=== PATIENT | female | born 1955 | race Caucasian/White ===

== ENCOUNTER 2022-11-22 11:01 | Outpatient (OUT) | payer MEDICARE, SELFPAY ==
--- NOTE | 2022-11-22 11:14 | XR_ITS ---
The [address] [address] Patient Name: LORETO VASQUEZ MRN: [id number] date: 1955 Sex: F Assigned Patient Location: [facility] Current Patient Location: [facility] Accession/Order Number: [id number] Exam Date: 11/22/2022 11:20 Report Date: 11/22/2022 11:48 At the request of: ASHLEY KHANNA Procedure: XR hand RT min 3V EXAM: XR hand RT min 3V HISTORY: Right Hand PAin M79.64 COMPARISON: None. TECHNIQUE: 3 views FINDINGS: Small bony fragment in the lateral aspect of the distal third interphalangeal joint. No dislocation. No significant degenerative changes. XR/XR hand RT min 3V IMPRESSION: Small bony fragment of the lateral aspect of the distal third interphalangeal joint, may be an avulsion fracture of unknown chronicity. Electronically authenticated by: CLOTILDE BARFIELD Date: 11/22/2022 11:48
== END 2022-11-22 11:02 | disposition home or self-care (01) ==
LOC: RAD 11:08
PROVIDERS: PCP Nurse Practitioner; Visit Provider Nurse Practitioner
DX: M79.641 Pain in right hand (principal); M79.644 Pain in right finger(s)
CPT/HCPCS: 73130

== ENCOUNTER 2023-03-24 07:02 | Outpatient (RCR) | payer MEDICARE, SELFPAY | END 2023-04-03 08:14 | disposition home or self-care (01) | LOC: OT 07:02 | PROVIDERS: PCP Nurse Practitioner | DX: G56.21 Lesion of ulnar nerve, right upper limb (principal) | CPT/HCPCS: 97110; 97166 ==

== ENCOUNTER 2023-04-04 09:40 | Outpatient (RCR) | payer MEDICARE, SELFPAY | END 2023-05-05 15:57 | disposition home or self-care (01) | LOC: OT 09:40 | PROVIDERS: PCP Nurse Practitioner; Visit Provider Nurse Practitioner | DX: G56.21 Lesion of ulnar nerve, right upper limb (principal) | CPT/HCPCS: 97110 ==

== ENCOUNTER 2023-09-12 10:44 | Outpatient (OUT) | payer MEDICARE, SELFPAY ==
--- NOTE | 2023-09-12 10:53 | XR_ITS ---
[address] [address] Patient Name: LORETO VASQUEZ MRN: [id number] date: 1955 Sex: F Assigned Patient Location: [facility] Current Patient Location: [facility] Accession/Order Number: [id number] Exam Date: 09/12/2023 11:05 Report Date: 09/12/2023 11:23 At the request of: ASHLEY KHANNA Procedure: XR DEXA axial skeleton EXAMINATION: XR DEXA axial skeleton, 09/12/2023 11:05 AM EDT HISTORY: Primary Ovarian Failure E28.39 COMPARISON: 2008 TECHNIQUE: Dual-energy X-ray absorptiometry (DEXA) bone density study performed for the axial skeleton. HISTORY: Primary Ovarian Failure E28.39 FINDINGS: Bone mineral density AP spine L2-L4 measures 1.077 g/sq cm. T score -1.0. WHO classification: Normal. Lowest bone mineral density right femoral neck measuring 0.780 g/sq cm for T score -1.9. WHO classification: Osteopenia XR/XR DEXA axial skeleton IMPRESSION: Osteopenia. Moderate fracture risk Electronically authenticated by: HYACINTH ALEXANDRE Date: 09/12/2023 11:23
== END 2023-09-12 10:45 | disposition home or self-care (01) ==
LOC: RAD 10:46
PROVIDERS: PCP Nurse Practitioner; Visit Provider Nurse Practitioner
DX: E28.39 Other primary ovarian failure (principal); M85.80 Other specified disorders of bone density and structure, unspecified site
CPT/HCPCS: 77080

== ENCOUNTER 2023-10-03 12:45 | Outpatient (OUT) | payer MEDICARE, SELFPAY ==
--- NOTE | 2023-10-03 12:52 | XR_ITS ---
The [address] [address] Patient Name: LORETO VASQUEZ MRN: [id number] date: 1955 Sex: F Assigned Patient Location: [facility] Current Patient Location: Accession/Order Number: [id number] Exam Date: 10/03/2023 13:08 Report Date: 10/04/2023 13:53 At the request of: ASHLEY KHANNA Procedure: XR hip LT min 2V PROCEDURE: XR hip LT min 2V HISTORY: Sclerosis Focus Left Femoral Head 12 mm COMPARISON: XR hip left 03/10/2022, CT abdomen pelvis 02/15/2022 FINDINGS: BONES:Stable, subtle faint sclerotic area within inferior medial margin of left femoral head. No significant joint space narrowing or periarticular osteophytes. SOFT TISSUES:No visible soft tissue swelling. EFFUSION:None visible. OTHER: Negative. XR/XR hip LT min 2V IMPRESSION: 1. Stable subtle sclerotic area within left femoral head; given its stability this likely represents benign etiology. Electronically authenticated by: KATHLEEN YEAGER Date: 10/04/2023 13:53
--- OUTSIDE RECORDS SUMMARY | 2023-10-03 12:56 | XMS_ITS | CCD ---
Author Organization [facility] Care Team Providers Care Burglar Alarm Superintendent Name Role Phone SCOTCH, MELITON (PA) Unavailable Unavailable SCOTCH, MELITON (PA) Unavailable Unavailable DILLAN OCHOA Unavailable Unavailable SCOTCH, MELITON (PA) Unavailable Unavailable SCOTCH, MELITON (PA) Unavailable Unavailable SCOTCH, MELITON (PA) Unavailable Unavailable SCOTCH, MELITON (PA) Unavailable Cuauhtemoc Parikh Unavailable Unavailable Unavailable Sally, Dr. Felton Referring Unavaila Cuauhtemoc Abreu Primary Care Unavailable Traboulssdana, Dr. Felton Attending Unavaila ble Trabmalachi, Dr. Felton Referring Unavaila Cuauhtemoc Abreu Primary Care Unavailable Sally, Dr. Felton Attending Unavaila CUAUHTEMOC Abreu Primary Care Physician SALLY, DR FELTON Admitting Unavailab le TRABOULSSI, DR FELTON Attending Unavailab le MANOHAR, DR CUAUHTEMOC Crow Primary Care Unavailable TRABOULSSI, DR FELTON Consulting Unavailab le NILL, DR GRIMALDO Admitting Unavailable NILL, DR GRIMALDO Attending Unavailable VILLELA, DR CUAUHTEMOC Crow Primary Care Unavailable ZIEBBRANDO, DR KATHLEEN Sommers Consulting Unavailable NILL, DR GRIMALDO Consulting Unavailable NILL, DR GRIMALDO Admitting Unavailable NILL, DR GRIMALDO Attending Unavailable MANOHAR, DR CUAUHTEMOC Crow Primary Care Unavailable ZIEBER, DR KATHLEEN Sommers Consulting Unavailable NILL, DR GRIMALDO Consulting Unavailable NILL, DR GRIMALDO Admitting Unavailable NILL, DR GRIMALDO Attending Unavailable MANOHAR, DR CUAUHTEMOC Crow Primary Care Unavailable NILL, DR GRIMALDO Consulting Unavailable CASTELLANO, MADELINE PANDYA Consulting Unavailable SANTIAGO ORTEGA Consulting Unavailable TRABOULSSI, DR FELTON Admitting Unavailab le TRABOULSSI, DR FELTON Attending Unavailab le VILLELA, DR CUAUHTEMOC Crow Primary Care Unavailable TRABOULSSDana, DR FELTON Consulting Unavailab le NILL, DR GRIMALDO Admitting Unavailable NILL, DR GRIMALDO Attending Unavailable VILLELA, DR CUAUHTEMOC Crow Primary Care Unavailable NILL, DR GRIMALDO Consulting Unavailable Clemencia, Ashley L Primary Care Physician [phone] Manohar, Dr. Cuauhtemoc Baig Primary Care Unavailab le Ciaccia, Dr. Feliz Pennington Attending Unavai lable Clemencia, Ashley L Primary Care Provider JOSE FRANCISCO ZAVALA Attending Unavailable CLEMENCIA, ASHLEY L Primary Care Unavailable Clemencia WOVEN LABEL DESIGNER-PHARMACY SERVICES DIRECTOR, Ashley L Primary Care Provider Clemencia WOVEN LABEL DESIGNER-PHARMACY SERVICES DIRECTOR, Ashley L Primary Care Provider Un available Clemencia WOVEN LABEL DESIGNER-PHARMACY SERVICES DIRECTOR, Ashley L Primary Care Provider FELIZ TIERNEY Admitting Unavailable FELIZ TIERNEY Attending Unavailable CLEMENCIA, ASHLEY Primary Care Unavailable Jose Francisco Zavala MD Unavailable ESTELA ROBERTSON Referring Unavailable CLEMENCIA, ASHLEY L Primary Care Unavailable Clemencia WOVEN LABEL DESIGNER-PHARMACY SERVICES DIRECTOR, Ashley L Primary Care Provider ESTELA ROBERTSON Attending Unavailable VILLELACUAUHTEMOC FREDERICK Referring Unavailable CLEMENCIA, ASHLEY L Primary Care Unavailable FELIZ TIERNEY Attending Unavailable CLEMENCIA, ASHLEY L Primary Care Unavailable FELIZ TIERNEY Attending Unavailable CLEMENCIA, ASHLEY L Primary Care Unavailable FELIZ TIERNEY Referring Unavailable CLEMENCIA, ASHLEY L Primary Care Unavailable FELIZ TIERNEY Attending Unavailable CLEMENCIA, ASHLEY L Primary Care Unavailable FELIZ TIERNEY Attending Unavailable CLEMENCIA, ASHLEY L Primary Care Unavailable Clemencia, Ashley L Attending Unavailable Clemencia, Ashley L Admitting Unavailable Clemencia, GARMENT SEWER HAND Ashley L Attending Unavailable Clemencia, GARMENT SEWER HAND Ashley L Attending Unavailable Clemencia, GARMENT SEWER HAND Ashley L Attending Unavailable Clemencia, GARMENT SEWER HAND Ashley L Attending Unavailable Clemencia, GARMENT SEWER HAND Ashley L Attending Unavailable Clemencia, GARMENT SEWER HAND Ashley L Attending Unavailable Clemencia, GARMENT SEWER HAND Ashley L Admitting Unavailable Clemencia, GARMENT SEWER HAND Ashley L Attending Unavailable Clemencia, GARMENT SEWER HAND Ashley L Attending Unavailable Allergies Allergy Classification Reported Allergen(s) Allergy Type Date of Onset Reaction(s) Facility (10 sources) sulfamethoxazole / trimethoprim; Translations: [SULFAMETHOXAZOLE-T RIMETHOPRIM] Drug Allergy 11-17-19 16 Hives, Swelling [facility] [place] Repository (10 sources) INFLUENZA VIRUS VACCINES; Translations: [INFLUENZA VIRUS VACCINES] Propensity to adverse reactions to drug (disorder) 11-17-19 16 [facility] Repository (6 sources) Sulfamethoxazole / Trimethoprim; Translations: [Bactrim TABS] Drug Allergy [facility] y 250 DO Work Phone: (6 sources) Influenza (Split PF); Translations: [Influenza (Split PF)] Allergy to drug (finding) [facility] y 250 DO Work Phone: (6 sources) influenza A virus A/[id number] (H1N1) antigen / influenza A virus A/2014 (H3N2) antigen / influenza B virus B/Gonzalez antigen / influenza B virus B/ antigen; Translations: [influenza virus vaccine] Drug Allergy [facility] (disorder) [facility] [place] (6 sources) Sulfonamides (Antibiotic); Translations: [sulfa drugs] Drug allergy [facility] (disorder) [facility] [place] (1 source) rofecoxib Drug Allergy 09-27-19 13 [facility] Repository (1 source) Sulfamethoxazole / Trimethoprim Drug Allergy 09-27-19 13 [facility] Repository (1 source) Sulfonamides (Antibiotic) Drug allergy (disorder) 09-27-19 13 [facility] Repository (1 source) Flu Vaccine [id number] (3 yr +) Drug allergy (disorder) 09-27-19 13 [facility] Repository (4 sources) oxyCODONE; Translations: [OXYCODONE] Drug Allergy 09-27-19 21 Nausea [facility] Repository (4 sources) Sulfonamides (Antibiotic); Translations: [SULFA (SULFONAMIDE ANTIBIOTICS)] Propensity to adverse reactions to drug (disorder) 10-11-19 18 Hives [facility] Repository (4 sources) FLU VACCIN [id number](36MOS,UP) ; Translations: [FLU VACCIN [id number](36MOS,UP) ] Propensity to adverse reactions to drug (disorder) 09-13-19 21 Hives [facility] Repository Medications Current Medications Medication Drug Class(es) Dates Sig (Normalized) Sig (Original) acetaminophen 325 mg / HYDROcodone bitartrate 5 mg oral tablet (4 sources) Opioid Agonist Start: 10-08-2020 take 1-2 tablets by mouth every six hours as needed for pain HYDROcodone-aceta minophen (NORCO) 5-325 mg per tablet Indications: Pain in knee region after replacement of knee joint 1-2 tablets by mouth every 6 hours as needed for pain. 42 tablet 0 10/08/2020 Active amoxicillin 500 mg oral tablet (16 sources) Penicillin-class Antibacterial Start: 06-29-2022 amoxicillin (Amoxil) 500 mg tablet 06/29/2022 Active Start: 06-21-2022 amoxicillin (A moxil) 500 mg capsule 06/21/2022 Active Start: 12-15-2020 take 4 capsules by m outh every hour Amoxicillin 500 MG Oral Capsule TAKE 4 CAPSULES BY MOUTH ONE HOUR PRIOR TO DENTAL APPOINTMENT. Quantity: 12 Refills: 0 Ordered: 15-Dec-2020 DO Start : 15-Dec-2020 Complete docosahexaenoic acid 120 mg / eicosapentaenoic acid 180 mg oral capsule (13 sources) fish oil concentrate (Dewey-3) 120-180 mg capsule Take by mouth once daily. Active Fish Oils (1 source) Start: 024 Fish Oil Oral, Refill(s) 0 Start Date: 09/06/23 Status: Ordered guar gum (NUTRISOURCE FIBER) packet (2 sources) take 1 dose by mouth in the morning guar gum (NUTRISOURCE FIBER) packet Take 1 packet by mouth in the morning. 0 Active lactobacillus acidophilus [id number] unt / pectin 100 mg oral tablet (2 sources) take 1 tablet by mouth once daily at breakfast acidophilus-pectin, citrus 25 million cell -100 mg tablet Take 1 tablet by mouth daily with breakfast. 0 Active losartan potassium 50 mg oral tablet (2 sources) Angiotensin 2 Receptor Jay take 2 tablets by mouth once daily losartan (COZAAR) 50 mg tablet Indications: hypertension Take 100 mg by mouth daily Indications: high blood pressure. 0 Active Lysine (7 sources) take 1 tablet by mouth once daily LYSINE ORAL Take 1 tablet by mouth once daily. Active take 1 tablet by mouth once viral y LYSINE ORAL Take 1 tablet by mouth once daily. 0 Active Magnesium (8 sources) take 2 tablets by mo uth once daily magnesium 200 mg tablet Indications: hypomagnesemia Take 400 mg by mouth daily Indications: low amount of magnesium in the blood. 0 Active take 1 tablet by mouth once viral y Magnesium 400 MG Oral Tablet Take 1 tablet daily Quantity: 0 Refills: 0 Ordered: 06-Feb-2021 DO Active magnesium oxide 400 mg oral tablet (11 sources) Start: 12-25-2021 take 1 tablet by mouth once daily magnesium oxide 400 mg Tab 400 mg = 1 tab(s), Oral, Daily, Refills(s) 0 Start Date: 12/25/21 Status: Ordered [facility] Medication (3 sources) Start: 09-06-2023 [facility] Medicatio n Calcium Start Date: 09/06/23 Status: Ordered Start: 09-06-2023 [facility] [place] Medicatio n Multi Vitamin Start Date: 09/06/23 Status: Ordered Start: 09-06-2023 [facility] [place] Medicatio n Allergy Pill allorest patient states it is for allergies Start Date: 09/06/23 Status: Ordered multivit-min/ferrous fumarat e (MULTI VITAMIN ORAL) (7 sources) take 1 tablet by mouth once daily multivit-min/ferrous fumarate (MULTI VITAMIN ORAL) Take 1 tablet by mouth once daily. Active take 1 tablet by mouth once viral y multivit-min/ferrous fumarate (MULTI VITAMIN ORAL) Take 1 tablet by mouth once daily. 0 Active Dewey-3 1000 mg oral capsule (3 sources) Start: 12-25-2021 take 1 capsule by mouth once daily Dewey-3 1000 mg oral capsule 2,000 mg = 2 cap(s), Oral, Daily, Refills(s) 0 Start Date: 12/25/21 Status: Ordered omeprazole 40 mg delayed release oral capsule (8 sources) Proton Pump Inhibitor Start: 04-05-2023 take 1 capsule by mouth once daily omeprazole 40 mg Cap-DR 40 mg = 1 cap(s), Oral, Daily, # 90 cap(s), Refills(s) 1, Pharmacy: [id number], 157, cm, 08/14/23 8:47:00 EDT, Height/Length Dosing, 68.1, kg, 11/15/22 8:47:00 EDT, Weight Dosing Start Date: 04/05/23 Status: Ordered prochlorperazine 5 mg oral tablet (4 sources) Phenothiazine Start: 09-27-2020 take 1 tablet by mouth every six hours as needed for nausea and vomiting prochlorperazine (COMPAZINE) 5 mg tablet Take 1 tablet (5 mg total) by mouth every 6 (six) hours as needed for nausea or vomiting. 20 tablet 0 09/27/2020 Active valACYclovir 1000 mg oral tablet (3 sources) Herpesvirus Nucleoside Analog DNA Polymerase Inhibitor, Herpes Simplex Virus Nucleoside Analog DNA Polymerase Inhibitor, Herpes Zoster Virus Nucleoside Analog DNA Polymerase Inhibitor Start: 07-27-2022 take 1 tablet by mouth twice daily valacyclovir 1 g Tab 1 gm = 1 tab(s), Oral, BID, # 20 tab(s), Refills(s) 0, Pharmacy: [id number], 157.5, cm, 07/27/22 8:58:00 EDT, Height/Length Dosing, 68, kg, 07/27/22 8:58:00 EDT, Weight Dosing Start Date: 07/27/22 Status: Ordered valsartan 160 mg oral tablet (19 sources) Angiotensin 2 Receptor Jay Start: 02-06-2021 take 1 tablet by mouth once daily valsartan 160 mg Tab 160 mg = 1 tab(s), Oral, Daily, Refills(s) 0 Start Date: 12/25/21 Status: Ordered Vitamin D3 (1 source) Start: 09-06-2023 Vitamin D3 Refills(s) 0 Start Date: 09/06/23 Status: Ordered Completed/Discontinued Medications Medication Drug Class(es) Dates Sig (Normalized) Sig (Original) amoxicillin 500 mg / clavulanate 125 mg oral tablet (4 sources) Penicillin-class Antibacterial Start: 05-05-2020 Amoxicillin-Pot Clavulanate 500-125 MG Oral Tablet TAKE 2 TABLETS BY MOUTH AT ONCE, then TAKE 1 TABLET THREE TIMES DAILY UNTIL GONE Quantity: 21 Refills: 0 Ordered: 05-May-2020 DO Start : 05-May-2020 Complete docusate sodium 100 mg oral capsule (2 sources) Start: 09-26-2020 take 1 capsule by mouth twice daily Docusate Sodium 100 MG Oral Capsule TAKE 1 CAPSULE BY MOUTH TWICE DAILY Quantity: 60 Refills: 0 Ordered: 26-Sep-2020 DO Start : 26-Sep-2020 Complete Lidocaine (4 sources) Antiarrhythmic, Amide Local Anesthetic Start: 08-02-2023 End: 08-02-2023 lidocaine (Xylocaine) 10 mg/mL (1 %) injection 1 mL Start: 08-02-2023 End: 08-02-2023 1 mL, injection, Once PRN Pr ocedure, Starting on Tue08/02/23 at 0939, For 1 dose Start: 05-03-2023 End: 05-03-2023 lidocaine (Xylocaine) 10 mg/ mL (1 %) injection 0.5 mL Multi Vitamin TABS (6 sources) Multi Vitamin TA BS TAKE 1 TABLET DAILY. Quantity: 0 Refills: 0 Ordered: 06-Feb-2021 DO Active triamcinolone acetonide 10 mg/ml injectable suspension (4 sources) Corticosteroid Start: 08-02-2023 End: 08-02-2023 triamcinolone acetonide (Kenalog) injection 10 mg Start: 08-02-2023 End: 08-02-2023 10 mg, Once PRN Procedure, S tarting on Tue08/02/23 at 0939, For 1 dose Start: 05-03-2023 End: 05-03-2023 triamcinolone acetonide (Aiden alog) injection 5 mg Problems Active Problems Problem Classification Problem Date Documented Da te Episodic/Chronic Abdominal pain (9 sources) Left lower quadrant pain; Translations: [Left lower quadrant pain] Onset: 2 Episodic Cardiac dysrhythmias (4 sources) Unspecified atrial fibrillation; Translations: [Atrial fibrillation] Onset: 2 07-21-2022 Chronic Digestive congenital anomalies (1 source) Other specified congenital malformations of intestine; Translations: [OTH SPEC CONGEN MALFORM INTESTINE] Onset: 2 Chronic Disorders of lipid metabolism (16 sources) Hyperlipidemia; Translations: [Other and unspecified hyperlipidemia] Onset: 3 02-11-2023 Chronic Diverticulosis and diverticulitis (5 sources) Diverticulosis of large intestine; Translations: [Diverticulosis of large intestine without perforation or abscess without bleeding] Onset: 2 01-04-2022 Chronic Esophageal disorders (10 sources) Gastroesophageal reflux disease without esophagitis; Translations: [Gastro-esophageal reflux disease without esophagitis] Onset: 6 02-11-2023 Chronic Essential hypertension (20 sources) Hypertensive disorder; Translations: [Unspecified essential hypertension] Onset: 6 12-25-2021 Chronic Osteoarthritis (5 sources) Osteoarthritis; Translations: [Osteoarthritis of left knee joint] Onset: 6 07-21-2022 Chronic Other circulatory disease (4 sources) H/O: atrial fibrillation 12-25-2021 Episodic Other connective tissue disease (1 source) Presence of left artificial knee joint; Translations: [Presence of left artificial knee joint] Onset: 6 Chronic Other connective tissue disease (2 sources) Acquired trigger finger; Translations: [Trigger finger, unspecified finger] 05-03-2023 Episodic Other gastrointestinal disorders (1 source) Irritable bowel syndrome without diarrhea; Translations: [IRRITABLE BOWEL SYND W/O DIARRHEA] Onset: 2 Chronic Other gastrointestinal disorders (1 source) Abnormal feces; Translations: [Other fecal abnormalities] Onset: 2 Episodic Other gastrointestinal disorders (4 sources) Loose stool 02-09-2022 Episodic Other gastrointestinal disorders (1 source) Other fecal abnormalities; Translations: [OTHER FECAL ABNORMALITIES] Onset: 2 Episodic Other lower respiratory disease (1 source) Cough 06-28-2023 Episodic Other nervous system disorders (9 sources) Lesion of ulnar nerve, right upper limb; Translations: [Cubital tunnel syndrome on right] Onset: 3 Chronic Other nervous system disorders (2 sources) Ulnar nerve entrapment at wrist; Translations: [Lesion of ulnar nerve] Chronic Other nervous system disorders (2 sources) Lesion of right ulnar nerve; Translations: [Lesion of ulnar nerve, right upper limb] 02-15-2023 Chronic Other nervous system disorders (3 sources) Lesion of ulnar nerve; Translations: [Lesion of ulnar nerve, unspecified upper limb] Onset: 3 02-15-2023 Chronic Other nervous system disorders (3 sources) Carpal tunnel syndrome of right wrist; Translations: [Carpal tunnel syndrome, right upper limb] 02-22-2023 Chronic Other nervous system disorders (4 sources) Carpal tunnel syndrome, right upper limb; Translations: [Carpal tunnel syndrome, right upper limb] Onset: 3 Chronic Other nervous system disorders (1 source) Lesion of ulnar nerve, unspecified upper limb; Translations: [Lesion of ulnar nerve, unspecified upper limb] Onset: 3 Chronic Other nervous system disorders (1 source) Paresthesia of skin; Translations: [Paresthesia of skin] Onset: 3 Episodic Other non-traumatic joint disorders (1 source) Pain in joints of right hand; Translations: [Pain in joints of right hand] Onset: 3 Episodic Other nutritional; endocrine; and metabolic disorders (19 sources) Overweight in adulthood with body mass index of 25 or more but less than 30; Translations: [Overweight] Onset: 3 12-30-2021 Episodic Other nutritional; endocrine; and metabolic disorders (2 sources) Body mass index (BMI) 27.0-27.9, adult; Translations: [Body mass index (BMI) 27.0-27.9, adult] Onset: 3 Episodic Other screening for suspected conditions (not mental disorders or infectious disease) (3 sources) CT of pelvis abnormal 02-23-2022 Chronic Other screening for suspected conditions (not mental disorders or infectious disease) (8 sources) Abnormal findings on diagnostic imaging of other abdominal regions, including retroperitoneum; Translations: [Encounter for screening mammogram for malignant neoplasm of breast] Onset: 2 Episodic Other upper respiratory infections (1 source) Sinusitis 06-28-2023 Chronic Residual codes; unclassified (1 source) Acquired absence of other specified parts of digestive tract; Translations: [ACQ ABSENCE OTH PART DIGESTV TRACT] Onset: 2 Episodic Residual codes; unclassified (4 sources) At high risk for breast cancer; Translations: [Other specified personal risk factors, not elsewhere classified] Onset: 3 06-14-2023 Episodic Screening and history of mental health and substance abuse codes (7 sources) Ex-smoker; Translations: [Personal history of tobacco use] Onset: 2 Episodic Comment on above: Quit in 2002; Unclassified (1 source) PERSONAL HISTORY OF COVID-19; Translations: [PERSONAL HISTORY OF COVID-19] Onset: 2 Unclassified (1 source) CONTACT W/AND (SUSP) EXPOS COVID-19; Translations: [CONTACT W/AND (SUSP) EXPOS COVID-19] Onset: 2 Viral infection (3 sources) Disease caused by 2019-nCoV 07-21-2022 Comment on above: 11/2021 Past or Other Problems Problem Classification Problem Date Documented Date Episodic/Chronic Cardiac dysrhythmias (16 sources) Palpitations; Translations: [Palpitations] Onset: 12-29-2022 02-11-2023 Episodic Mood disorders (2 sources) Mood disorders Onset: 05-19-2022 05-19-2022 Nausea and vomiting (2 sources) Postoperative nausea and vomiting; Translations: [Nausea with vomiting, unspecified] Onset: 09-26-2020 09-27-2020 Episodic Other connective tissue disease (2 sources) History of prosthetic unicompartmental arthroplasty of left knee; Translations: [Presence of left artificial knee joint] Onset: 02-02-2016 Resolved: 09-27-2020 09-27-2020 Chronic Other connective tissue disease (2 sources) Trigger finger, unspecified finger; Translations: [Trigger finger, unspecified finger] Onset: 05-03-2023 Episodic Other nervous system disorders (2 sources) Postoperative pain ; Translations: [Other acute postprocedural pain] Onset: 04-07-2016 Resolved: 09-27-2020 09-27-2020 Episodic Other non-traumatic joint disorders (2 sources) Pain in unspecified knee; Translations: [Pain in joint, lower leg] Onset: 08-21-2020 09-27-2020 Episodic Residual codes; unclassified (1 source) Other specified personal risk factors, not elsewhere classified; Translations: [Other specified personal risk factors, not elsewhere classified] Onset: 05-19-2022 Episodic Unclassified (7 sources) Onset: 02-11-2023 02-11-2023 Results Test Name Value Interpretation Reference Range Facil ity Dexa Scanson 09-13-2023 Dexa Scans [id number] [facility] Dexa Scans [id number] 09-12-2023 Ambulatory Visit Summary LORETO VASQUEZ :1955 Visit Date:09/12/2023 Ambulatory Visit Instructions Your Diagnosis HTN (hypertension) BMI 28.0-28.9,adult Former smoker Your Care Team Attending Physician - Ashley Colvin Primary Care Physician - Ashley Colvin This Is Your Medications List Non-Formulary Medication (Misc Medication) Non-Formulary Medication (Misc Medication) amlodipine (amLODIPine 5 mg Tab) cetirizine (Zyrtec) cholecalciferol (Vitamin D3) magnesium oxide (magnesium oxide 400 mg Tab) omega-3 polyunsaturated fatty acids (Fish Oil) omeprazole (omeprazole 40 mg Cap-DR) valacyclovir (valacyclovir 1 g Tab) valsartan (valsartan 160 mg Tab) Procedures Performed Carpal tunnel (04/03/2023), Colonoscopy (01/27/2022), Arthroplasty of knee, Arthroplasty of knee, Cholecystectomy, Meniscal repair, Tonsillectomy and adenoidectomy, Vaginal total hysterectomy. Discharge Vitals Heart Rate (Peripheral) 76 Respiratory Rate 18 Blood Pressure 142/94 Height 155.0 cm Height 61 in Weight 68.0 kg Weight 149.6 lb BMI 28.3 What to do next Scheduled Follow-Up Appointments Tuesday 8:20 AM EDT With: Ashley Colvin Where: [facility] [place] [address] [place] [address]- \.br\ Medications\.br\ What How Much When Why Instructions\.br \ New amlodipine (amLODIPine 5 mg Tab) 1 Tablets By Mouth Every day HTN (hypertension) BMI 28.0-28.9,adult Former smoker Pickup at [facility]/pharmacy #[id number]\.br\ Unchanged cetirizine (Zyrtec) 10 Milligram By Mouth Every day\.br\ Unchanged cholecalciferol (Vitamin D3)\.br\ Unchanged magnesium oxide (magnesium oxide 400 mg Tab) 1 Tablets By Mouth Every day\.br\ Unchanged Non-Formulary Medication (Misc Medication) Multi Vitamin \.br\ Unchanged Non-Formulary Medication (Misc Medication) Calcium \.br\ Unchanged omega-3 polyunsaturated fatty acids (Fish Oil) By Mouth\.br\ Unchanged omeprazole (omeprazole 40 mg Cap-DR) 1 Capsules By Mouth Every day Hiatal hernia with GERD Gastro-esophagea l reflux disease without esophagitis BMI 27.0-27.9,adult Non-smoker\.br\ Unchanged valacyclovir (valacyclovir 1 g Tab) 1 Tablets By Mouth 2 times a day\.br\ Unchanged valsartan (valsartan 160 mg Tab) 1 Tablets By Mouth Every day\.br\ Pharmacy Information\.br\ [id number]: [address], [place] [id number] [phone]\.br\ Allergies\.br\ Influenza Virus Vaccine (Hives)\.br\ sulfa drugs (Hives)\.br\ Problems\.br\ Ongoing - Any problem that you are currently receiving treatment for.\.br\ Abdominal pain, LLQ (left lower quadrant)\.br\ Abnormal CT scan, pelvis\.br\ Atrial fibrillation\.br \ BMI 26.0-26.9,adult\ .br\ BMI 28.0-28.9,adult\ .br\ Cough\.br\ COVID-19\.br\ Diverticulosis\. br\ Hiatal hernia with GERD\.br\ History of atrial fibrillation\.br \ HTN (hypertension)\. br\ Loose stools\.br\ Osteoarthritis\. br\ Sinusitis\.br\ Patient Survey\.br\ You may receive a survey via text or e-mail asking about your office visit. Please share your experience with us by completing your survey. We appreciate your feedback and thank you for choosing us for your care.\.br\ \.br\ [facility] Family Medicine Office/Clini c Noteon 09-12-2023 Family Medicine Office/Clinic Note Chief Complaint 68.0o HPI Staff Loreto is a 67 year old female presenting to discuss HTN 09/07/23 pt had medicare wellness b/p was 160/98 Patient is here for follow up on hypertension. How often are you checking your blood pressure? 150-160's/90's , pulse 60-70 What are your average readings? _ Pt has noticed tachycardia. Pt states her transportation museum helper in February told her to start checking her blood pressures at home because it was running high, pt never did take her blood pressures. Pt states she is going to call her transportation museum helper. Denies headache or chest pain History of Present Illness pt presents today for BP follow up Review of Systems PHQ Score Initial Depression Screen Score: 0 SCORE Physical Exam Vitals & Measurements HR: 76(Peripheral) RR: 18 BP: 142/94 SpO2: 98% HT: 61 in HT: 155.0 cm WT: 68.0 kg WT: 149.6 lb BMI: 28.3 General: alert, no acute distress ENMT: oral mucosa moist, no pharyngeal erythema or exudate Cardiovascular: regular rate and rhythm, normal peripheral perfusion Respiratory: Lungs CTA, respirations non labored Extremities: no deformity, no trauma Neurological: oriented x 4, LOC appropriate for age, CN II-XII intact, motor strength equal & normal bilaterally, speech normal Assessment/Plan 1. HTN (hypertension) (I10: Essential (primary) hypertension) BP is still elevated. will start amlodipine 5mg. pt will also notify her transportation museum helper of this change. RTC 3 weeks for BP follow up Ordered: amlodipine, 5 mg = 1 tab(s), Oral, Daily, # 30 tab(s), Refills(s) 0, Pharmacy: [id number], 155, cm, 09/12/23 8:27:00 EDT, Height/Length Dosing, 68, kg, 09/12/23 8:27:00 EDT, Weight Dosing 2. BMI 28.0-28.9,adult (Z68.28: Body mass index [BMI] 28.0-28.9, adult) BMI education complete Ordered: amlodipine, 5 mg = 1 tab(s), Oral, Daily, # 30 tab(s), Refills(s) 0, Pharmacy: [id number], 155, cm, 09/12/23 8:27:00 EDT, Height/Length Dosing, 68, kg, 09/12/23 8:27:00 EDT, Weight Dosing 3. Former smoker (Z87.891: Personal history of nicotine dependence) continue not smoking Ordered: amlodipine, 5 mg = 1 tab(s), Oral, Daily, # 30 tab(s), Refills(s) 0, Pharmacy: [facility]/pharmacy #[id number], 155, cm, 09/12/23 8:27:00 EDT, Height/Length Dosing, 68, kg, 09/12/23 8:27:00 EDT, Weight Dosing Follow-up No qualifying data available Problem List/Past Medical History Ongoing Abdominal pain, LLQ (left lower quadrant) Abnormal CT scan, pelvis Atrial fibrillation BMI 26.0-26.9,adult BMI 28.0-28.9,adult Cough COVID-19 Diverticulosis Hiatal hernia with GERD History of atrial fibrillation HTN (hypertension) Loose stools Osteoarthritis Sinusitis Historical No qualifying data Procedure/Surgical History Carpal tunnel (04/03/2023), Colonoscopy (01/27/2022), Arthroplasty of knee, Arthroplasty of knee, Cholecystectomy, Meniscal repair, Tonsillectomy and adenoidectomy, Vaginal total hysterectomy. Medications amLODIPine 5 mg Tab, 5 mg= 1 tab(s), Oral, Daily Fish Oil, Oral magnesium oxide 400 mg Tab, 400 mg= 1 tab(s), Oral, Daily Misc Medication Misc Medication omeprazole 40 mg Cap-DR, 40 mg= 1 cap(s), Oral, Daily, 1 refills valacyclovir 1 g Tab, 1 gm= 1 tab(s), Oral, BID valsartan 160 mg Tab, 160 mg= 1 tab(s), Oral, Daily Vitamin D3 Zyrtec, 10 mg, Oral, Daily Allergies Influenza Virus Vaccine (Hives) sulfa drugs (Hives) Social History Alcohol - Low Risk, 09/02/2022 Current, Beer, Wine, 1-2 times per month, 1 drinks/episode average. 3.00 drinks/episode maximum. Alcohol use interferes with work or home: No. Drinks more than intended: No. Others hurt by drinking: No. Ready to change: No. Household alcohol concerns: No., 09/06/2023 Substance Abuse - Denies Substance Abuse, 12/30/2021 Tobacco - Denies Tobacco Use, 09/06/2023 Former smoker, quit more than 30 days ago Tobacco Use:. Never Smokeless Tobacco Use:. Cigarettes, 0.5 per day. 19 year(s). Total pack years: 8. Started age 18.0 Years. Stopped age 46 Years. Household tobacco concerns: No., 09/12/2023 Family History Acute myocardial infarction: Father and Sister. Diabetes mellitus type 2: Father and Sister. Heart failure: Father. Parkinson disease: Mother. Primary malignant neoplasm of bladder: Father. Primary malignant neoplasm of female breast: Sister. Immunizations Vaccine Date Status Comments SARS-CoV-2 (COVID-19) [id number] 03/10/2022 Recorded 2022-07-27: TPV65 pneumococcal 13-valent vaccine 02/01/2022 Recorded influenza virus vaccine, inactivated - Not Given Patient Refuses SARS-CoV-2 (COVID-19) mRNA-1273 vaccine 07/22/2021 Recorded SARS-CoV-2 (COVID-19) mRNA-1273 vaccine 01/24/2021 Recorded 2022-07-27: TPV60 SARS-CoV-2 (COVID-19) Ad26 vaccine 06/07/2020 Recorded zoster vaccine live 10/27/2015 Recorded hepatitis B adult vaccine 11/25/2014 Recorded diphtheria/pertussis, acel/tetanus adult 06/25/2014 Recorded hepatitis B adult vaccine 06/25/2014 Recorded hepatitis B adult vac (more content not included)... Normal [facility] Comment on above: Result Comment: Elec tronically Signed By: Ashley Colvin\.br\Date and Time Signed: 09/12/23 08:55 EDT Outside Mammographyon 2023 Outside Mammography [id number]#1.00TIFF [facility] RAD - MRI Reporton 4 RAD - MRI Report [id number] FF [facility] .Interpretation:on 4 HCV Ab IA Ql Comment Invalid Interpretation Code [facility] Comment on above: Result Comment: Not infected with HCV unless early or acute infection is suspected (which may be delayed in an immunocompromised individual), or other evidence exists to indicate HCV infection. Performed at: [address], [place] [id number] PhD Liam Molina Performed By: #### 2 [id number] #### [facility] [address] [place] [address] HCV Antibody RFX to Quant PC Syl[place] 09-08-2023 HCV IgG IA Ql Non-Reactive Invalid Interpretation Code Non Reactive [facility] Comment on above: Result Comment: Perf ormed at: [facility] [address], [place] [id number] PhD Liam Molina Performed By: #### 2 [id number] #### [facility] [address] [place] [address] Family Medicine Office/Clini c Noteon 09-07-2023 Family Medicine Office/Clinic Note Chief Complaint Medicare Wellness Visit Initial Review of Systems PHQ Score Initial Depression Screen Score: 0 SCORE Physical Exam Vitals & Measurements HR: 71(Peripheral) RR: 16 BP: 160/98 SpO2: 95% HT: 155 cm HT: 61 in WT: 68.2 kg WT: 150.04 lb BMI: 28.39 Assessment/Plan 1. Annual visit for general adult medical examination with abnormal findings (Z00.01: Encounter for general adult medical examination with abnormal findings) The patient was given a customized and personalized print out of all the current AHRQ USPSTF?s recommendations for preventative services and all current CDC recommended immunizations, relevant risk recommendations and the following patient brochures were given. Reviewed Medicare Prevention Services checklist. CDC-Falls Prevention and home safety screening reviewed. Patient denies any falls in last 12 months, voices no worry about falling. Exhibits no problems with sitting, standing or ambulation. Patient aware with keeping walk way area free of clutter to prevent tripping and/or falling. [place] Advance Directives reviewed. Documents remain at home and present in the chart. Patient denies any problems with ADL?s and Instrumental ADL?s. Cognitive screening completed with memory and clock face drawing. No deficits noted. Immunization record reviewed, discussed Shingrix vaccine with educational handout and availability. COVID vaccines have been administered, with Boosters received. Allergies and medications reviewed and up to date. No concerns with taking medication as prescribed. Reviewed OTC medications, medication list up to date. Blood tests were reviewed: Discussed what tests need to be updated. Labs were ordered, and drawn in the office at visit today. No concerns with bowel/ bladder. Colonoscopy last completed 01/27/22 with 10 year repeat recommended. Reviewed pain symptoms : denies pain. Reviewed all outside providers that patient follows. Last visit summary notes available in chart and/or have been requested. Patient declines any signs or symptoms of depression at this time. 8 minutes spent with screening and documentation. PHQ2 screening score 0. Patient drinks alcohol 2-3 times per week 1-3 drinks per episode, denies concerns. 12 minutes spent with screening and documentation. Audit score 3. Follow up scheduled with PCP, 09/12/23. AWV has been scheduled, 09/03/24. Abnormal findings with elevated BP, serial assessment completed and documented. See #2. Patient qualifies for Chronic Care Management- offered and declined. Medicare provides yearly screening for alcohol and depression concerns. This is completed during our Medicare wellness visit for those who do not have a current diagnosis of depression or concerns with alcohol use. I spent a total of 20 minutes on this date of service which included preparing to see the patient, face to face patient care, completing clinical documentation, obtaining and/or reviewing separately obtained history, counseling and educating the patient with handouts. Explanations were provided with reviewing questionnaires. AUDIT risk assessment screening completed, risk score (3) with patient denying concerns with use. Completed PHQ-2 risk assessment for depression with risk score (0), negative findings. Patient has been reminded to notify the provider if there would be a change or concerns with symptoms with fear, unable to sleep, worrying too much or feeling down and/or sad with lost of interest with daily activities. Will continue to monitor with screening yearly during Medicare wellness visits. 2. HTN (hypertension) (I10: Essential (primary) hypertension) Abnormal findings with elevated BP, serial assessment completed and documented. Bp#1 154/92 BP #2 160/98. PCP aware and requests that patient check BP at home for a week and then follow up with PCP. Follow up scheduled for 09/12/23. Patient taking medications daily as directed, BP not monitored at home but patient states she has a BP cuff and will start monitoring it. Patient does voice understanding with signs and symptoms to monitor for-denies s/s today of Chest pain or pressure, vision changes, Headache, Numbness/tingling down left arm states she will go to ER if these symptoms develop. HTN stoplight handout reviewed with importance of keeping BP <140/90 to prevent increased cardiovascular risks. DASH dietary handout reviewed with importance to lower salt intake, eat more chicken, fish and lean white meats. CBC and CMP ordered and drawn today. Follow up with PCP. 3. Atrial fibrillation (I48.91: Unspecified atrial fibrillation) Follows Route Supervisor, Dr. Zavala yearly and as needed. Denies SOB, chest pain or irregular heart rhythm. Manages medication, Magnesium, with office visits. Cardiac-/DASH nutritional education handout reviewed with patient and provided. Tries following healthy dietary intake. Follow up with Cardiology as directed. 4. Screening for hyperlipidemia (Z13.220: Encounter for screening for lipoid disorders) Lip (more content not included)... Normal [facility] Comment on above: Result Comment: Elec tronically Signed By: Ashley Colvin\.br\Date and Time Signed: 09/07/23 08:13 EDT\.br\Electronically Co-Signed By: Maame Constantino LPN\.br\Date and Time Co-Signed: 09/06/23 14:11 EDT Reminderson 09-07-2023 Reminders - From: Ashley Colvin To: B - Clinical; Sent: 09/07/2023 08:11:36 EDT Show up: 09/07/2023 08:11:00 EDT Subject: Ambulatory Reminder Due Date/Time: 09/08/2023 08:10:00 EDT cholesterol and triglycerides slightly elevated. continue taking statin. All other labs look good! Results: Date Result Name Ind Value Ref Range 09/06/2023 9:14 WBC 7.3 E9/L (4.0 - 11.0) 09/06/2023 9:14 RBC 4.4 E12/L (4.3 - 5.9) 09/06/2023 9:14 HGB 14.6 gm/dL (12.0 - 16.0) 09/06/2023 9:14 Hct 44.1 % (34.0 - 46.0) 09/06/2023 9:14 MCV ((H)) 100.4 fL (80.0 - 100.0) 09/06/2023 9:14 MCH 33.3 pg (27.0 - 34.0) 09/06/2023 9:14 MCHC 33.2 gm/dL (31.4 - 36.0) 09/06/2023 9:14 RDW 13.1 % (10.9 - 14.2) 09/06/2023 9:14 Platelet 313.0 E9/L (150.0 - 500.0) 09/06/2023 9:14 MPV 8.9 fL (6.4 - 10.8) 09/06/2023 9:14 Neutro Auto 72.7 % (36.0 - 75.0) 09/06/2023 9:14 Lymph Auto 19.3 % (14.0 - 50.0) 09/06/2023 9:14 Cavalier Auto 6.1 % (4.0 - 14.0) 09/06/2023 9:14 Eos Auto 1.4 % (0.0 - 8.0) 09/06/2023 9:14 Basophil Auto 0.5 % (0.0 - 2.0) 09/06/2023 9:14 Neutro Absolute 5.3 E9/L (2.0 - 7.5) 09/06/2023 9:14 Lymph Absolute 1.4 E9/L (1.0 - 4.0) 09/06/2023 9:14 Cavalier Absolute 0.4 E9/L (0.2 - 1.0) 09/06/2023 9:14 Eos Absolute 0.1 E9/L (0.0 - 0.5) 09/06/2023 9:14 Basophil Absolute 0.0 E9/L (0.0 - 0.2) 09/06/2023 9:14 Glucose Lvl 97 mg/dL (55 - 199) 09/06/2023 9:14 BUN 15 mg/dL (5 - 21) 09/06/2023 9:14 Creatinine 0.8 mg/dL (0.5 - 1.3) 09/06/2023 9:14 eGFR 81 mL/min/1.73 m2 (>=59 - ) 09/06/2023 9:14 BUN/Creat Ratio 19 (10 - 20) 09/06/2023 9:14 Sodium Lvl 139 mmol/L (135 - 145) 09/06/2023 9:14 Potassium Lvl 4.2 mmol/L (3.5 - 5.3) 09/06/2023 9:14 Chloride 106 mmol/L (101 - 111) 09/06/2023 9:14 CO2 25 mmol/L (21 - 31) 09/06/2023 9:14 AGAP 12 mEq/L (6 - 16) 09/06/2023 9:14 Calcium Lvl 9.5 mg/dL (8.9 - 11.1) 09/06/2023 9:14 Alk Phos 81 Int._Unit/L (21 - 98) 09/06/2023 9:14 ALT 13 Int._Unit/L (6 - 46) 09/06/2023 9:14 AST 21 Int._Unit/L (5 - 43) 09/06/2023 9:14 Total Protein 7.3 gm/dL (6.0 - 7.8) 09/06/2023 9:14 Albumin Lvl 4.6 gm/dL (3.3 - 5.0) 09/06/2023 9:14 Globulin 2.7 gm/dL (1.4 - 4.0) 09/06/2023 9:14 A/G Ratio 1.7 (1.1 - 2.2) 09/06/2023 9:14 Bili Total 0.7 mg/dL (0.0 - 1.1) 09/06/2023 9:14 Chol ((H)) 240 mg/dL (120 - 200) 09/06/2023 9:14 Trig ((H)) 197 mg/dL ( - <=149) 09/06/2023 9:14 HDL 62 mg/dL 09/06/2023 9:14 LDL Direct ((H)) 154 mg/dL ( - <=129) 09/06/2023 9:14 VLDL 39 mg/dL (7 - 40) 09/06/2023 9:14 TSH 1.38 mcIU/mL (0.34 - 5.60) LVM for patient to return call please advise patient of message below Patient returns call and verbalizes understanding. Normal [facility] Ambulatory Visit Summaryon 0 6-04-2024 Ambulatory Visit Summary LORETO VASQUEZ :1955 Visit Date:09/06/2023 Ambulatory Visit Instructions Your Diagnosis Annual visit for general adult medical examination with abnormal findings HTN (hypertension) Atrial fibrillation Screening for hyperlipidemia Overweight Encounter for hepatitis C screening test for low risk patient Primary ovarian failure Seasonal allergies Tests Performed BD Bone Density DEXA -- Results Pending -- Please visit your patient portal for your results or contact your primary care physician. Your Care Team Attending Physician - Ashley Colvin Primary Care Physician - Ashley Colvin This Is Your Medications List Non-Formulary Medication (Misc Medication) Non-Formulary Medication (Misc Medication) Non-Formulary Medication (Misc Medication) cholecalciferol (Vitamin D3) magnesium oxide (magnesium oxide 400 mg Tab) omega-3 polyunsaturated fatty acids (Fish Oil) omeprazole (omeprazole 40 mg Cap-DR) valacyclovir (valacyclovir 1 g Tab) valsartan (valsartan 160 mg Tab) Procedures Performed Carpal tunnel (04/03/2023), Colonoscopy (01/27/2022), Arthroplasty of knee, Arthroplasty of knee, Cholecystectomy, Meniscal repair, Tonsillectomy and adenoidectomy, Vaginal total hysterectomy. Discharge Vitals Heart Rate (Peripheral) 71 Respiratory Rate 16 Blood Pressure 160/98 Height 61 in Height 155 cm Weight 150.04 lb Weight 68.2 kg BMI 28.39 What to do next Scheduled Follow-Up Appointments Tuesday 8:20 AM EDT With: Ashley Colvin Where: [facility] [place] [facility] [address] [place] [address]- \.br\ Medications\.br\ What How Much When Why Instructions\.br \ Unchanged cholecalciferol (Vitamin D3)\.br\ Unchanged magnesium oxide (magnesium oxide 400 mg Tab) 1 Tablets By Mouth Every day\.br\ Unchanged Non-Formulary Medication (Misc Medication) Allergy Pill allorest patient states it is for allergies \.br\ Unchanged Non-Formulary Medication (Misc Medication) Multi Vitamin \.br\ Unchanged Non-Formulary Medication (Misc Medication) Calcium \.br\ Unchanged omega-3 polyunsaturated fatty acids (Fish Oil) By Mouth\.br\ Unchanged omeprazole (omeprazole 40 mg Cap-DR) 1 Capsules By Mouth Every day Hiatal hernia with GERD Gastro-esophagea l reflux disease without esophagitis BMI 27.0-27.9,adult Non-smoker\.br\ Unchanged valacyclovir (valacyclovir 1 g Tab) 1 Tablets By Mouth 2 times a day\.br\ Unchanged valsartan (valsartan 160 mg Tab) 1 Tablets By Mouth Every day\.br\ Medications and Immunizations Administered\.br \ Given\.br\ triamcinolone acetonide 40 mg/mL Inj Susp, 40 mg, IntraMuscular. For: Seasonal allergies\.br\ Allergies\.br\ Influenza Virus Vaccine (Hives)\.br\ sulfa drugs (Hives)\.br\ Problems\.br\ Ongoing - Any problem that you are currently receiving treatment for.\.br\ Abdominal pain, LLQ (left lower quadrant)\.br\ Abnormal CT scan, pelvis\.br\ Atrial fibrillation\.br \ BMI 26.0-26.9,adult\ .br\ BMI 28.0-28.9,adult\ .br\ Cough\.br\ COVID-19\.br\ Diverticulosis\. br\ Hiatal hernia with GERD\.br\ History of atrial fibrillation\.br \ HTN (hypertension)\. br\ Loose stools\.br\ Osteoarthritis\. br\ Sinusitis\.br\ Patient Survey\.br\ You may receive a survey via text or e-mail asking about your office visit. Please share your experience with us by completing your survey. We appreciate your feedback and thank you for choosing us for your care.\.br\ Education Materials\.br\ DASH Eating Plan\.br\ DASH stands for Dietary Approaches to Stop Hypertension. The DASH eating plan is a healthy eating plan that has been shown to:\.br\ ? \.br\ Reduce high blood pressure (hypertension).\ .br\ ? \.br\ Reduce your risk for type 2 diabetes, heart disease, and stroke.\.br\ ? \.br\ Help with weight loss.\.br\ What are tips for following this plan?\.br\ Reading food labels\.br\ ? \.br\ Check food labels for the amount of salt (sodium) per serving. Choose foods with less than 5 percent of the Daily Value of sodium. Generally, foods with less than 300 milligrams (mg) of sodium per serving fit into this eating plan.\.br\ ? \.br\ To find whole grains, look for the word whole as the first word in the ingredient list.\.br\ Shopping\.br\ ? \.br\ Buy products labeled as low-sodium or no salt added. \.br\ ? \.br\ Buy fresh foods. Avoid canned foods and pre-made or frozen meals.\.br\ Cooking\.br\ ? \.br\ Avoid adding salt when cooking. Use salt-free seasonings or herbs instead of table salt or sea salt. Check with your health care provider or pharmacist before using salt substitutes.\.br \ ? \.br\ Do not anderson foods. Cook foods using healthy methods such as baking, boiling, grilling, roasting, and broiling instead.\.br\ ? \.br\ Cook with heart-healthy oils, such as olive, canola, avocado, soybean, or sunflower oil.\.br\ Meal planning\.br\ \.br\ ? \.br\ Eat a balanced diet that includes:\.br\ ? \.br\ 4 or more servings of fruits and 4 or more servings of vegetables each day. Try to fill one-half of your plate with fruits and vegetables.\.br\ ? \.br\ 6?8 servings of whole grains each day.\.br\ ? \.br\ Less than 6 oz (170 g) of lean meat, poultry, or fish each day. A 3-oz (85-g) serving of meat is about the same size as a deck of cards. One egg equals 1 oz (28 g).\.br\ ? \.br\ 2?3 servings of low-fat dairy each day. One serving is 1 cup (237 mL).\.br\ ? \.br\ 1 serving of nuts, seeds, or beans 5 times each week.\.br\ ? \.br\ 2?3 servings of heart-healthy fats. Healthy fats called omega-3 fatty acids are found in foods such as walnuts, flaxseeds, fortified milks, and eggs. These fats are also found in cold-water fish, such as sardines, salmon, and mackerel.\.br\ ? \.br\ Limit how much you eat of:\.br\ ? \.br\ Canned or prepackaged foods.\.br\ ? \.br\ Food that is high in trans fat, such as some fried foods.\.br\ ? \.br\ Food that is high in saturated fat, such as fatty meat.\.br\ ? \.br\ Desserts and other sweets, sugary drinks, and other foods with added sugar.\.br\ ? \.br\ Full-fat dairy products.\.br\ ? \.br\ Do not salt foods before eating.\.br\ ? \.br\ Do not eat more than 4 egg yolks a week.\.br\ ? \.br\ Try to eat at least 2 vegetarian meals a week.\.br\ ? \.br\ Eat more home-cooked food and less restaurant, buffet, and fast food.\.br\ Lifestyle\.br\ ? \.br\ When eating at a restaurant, ask that your food be prepared with less salt or no salt, if possible.\.br\ ? \.br\ If you drink alcohol:\.br\ ? \.br\ Limit how much you use to:\.br\ ? \.br\ 0?1 drink a day for women who are not .\.br\ ? \.br\ 0?2 drinks a day for men.\.br\ ? \.br\ Be aware of how much alcohol is in your drink. In the [place] one drink equals one 12 oz bottle of beer (355 mL), one 5 oz glass of wine (148 mL), or one 1? oz glass of hard liquor (44 mL).\.br\ General information\.br\ ? \.br\ Avoid eating more than 2,300 mg of salt a day. If you have hypertension, you may need to reduce your sodium intake to 1,500 mg a day.\.br\ ? \.br\ Work with your health care provider to maintain a healthy body weight or to lose weight. Ask what an ideal weight is for you.\.br\ ? \.br\ Get at least 30 minutes of exercise that causes your heart to beat faster (aerobic exercise) most days of the week. Activities may include walking, swimming, or biking.\.br\ ? \.br\ Work with your health care provider or dietitian to adjust your eating plan to your individual calorie needs.\.br\ What foods should I eat?\.br\ Fruits\.br\ All fresh, dried, or frozen fruit. Canned fruit in natural juice (without added sugar).\.br\ Vegetables\.br\ Fresh or frozen vegetables (raw, steamed, roasted, or grilled). Low-sodium or reduced-sodium tomato and vegetable juice. Low-sodium or reduced-sodium tomato sauce and tomato paste. Low-sodium or reduced-sodium canned vegetables.\.br\ Grains\.br\ Whole-grain or whole-wheat bread. Whole-grain or whole-wheat pasta. Brown rice. Oatmeal. Quinoa. Bulgur. Whole-grain and low-sodium cereals. Angelina bread. Low-fat, low-sodium crackers. Whole-wheat flour tortillas.\.br\ Meats and other proteins\.br\ Skinless chicken or turkey. Ground chicken or turkey. Pork with fat trimmed off. Fish and seafood. Egg whites. Dried beans, peas, or lentils. Unsalted nuts, nut butters, and seeds. Unsalted canned beans. Lean cuts of beef with fat trimmed off. Low-sodium, lean precooked or cured meat, such as sausages or meat loaves.\.br\ Dairy\.br\ Low-fat (1%) or fat-free (skim) milk. Reduced-fat, low-fat, or fat-free cheeses. Nonfat, low-sodium ricotta or cottage cheese. Low-fat or nonfat yogurt. Low-fat, low-sodium cheese.\.br\ Fats and oils\.br\ Soft margarine without trans fats. Vegetable oil. Reduced-fat, low-fat, or light mayonnaise and salad dressings (reduced-sodium) . Canola, safflower, olive, avocado, soybean, and sunflower oils. Avocado.\.br\ Seasonings and condiments\.br\ Herbs. Spices. Seasoning mixes without salt.\.br\ Other foods\.br\ Unsalted pop [facility] Auth for Release of Medical Recordson 09-06-2023 Auth for Release of Medical Records [id number] FF Normal [facility] CBC w/ Auto Diffon 4 Basophils/100 WBC (Bld) 0.5 % Normal 0.0-2.0 [facility] Comment on above: Performed By: #### 2 [id number] #### [facility] [address] [place] [address] Basophils/Leukocyte s Auto (Bld) [Pure # fraction] 0.0 E9/L Normal 0.0-0.2 [facility] Comment on above: Performed By: #### 2 [id number] #### [facility] [address] [place] [address] Eosinophils (Bld) [#/Vol] 0.1 E9/L Normal 0.0-0.5 [facility] Comment on above: Performed By: #### 2 [id number] #### [facility] [address] [place] [address] Eosinophils/100 WBC (Bld) 1.4 % Normal 0.0-8.0 [facility] Comment on above: Performed By: #### 2 [id number] #### [facility] [address] [place] [address] Erythrocyte distribution width (RBC) [Ratio] 13.1 % Normal 10.9-14.2 [facility] Comment on above: Performed By: #### 2 [id number] #### [facility] [address] [place] [address] Hematocrit (Bld) [Volume fraction] 44.1 % Normal 34.0-46.0 [facility] Comment on above: Performed By: #### 2 [id number] #### [facility] [address] [place] [address] Hemoglobin (Bld) [Mass/Vol] 14.6 g/dL Normal 12.0-16.0 [facility] Comment on above: Performed By: #### 2 [id number] #### [facility] [address] [place] [address] Lymphocytes (Bld) [#/Vol] 1.4 E9/L Normal 1.0-4.0 [facility] Comment on above: Performed By: #### 2 [id number] #### [facility] [address] [place] [address] Lymphocytes/100 WBC (Bld) 19.3 % Normal 14.0-50.0 [facility] Comment on above: Performed By: #### 2 [id number] #### [facility] [address] [place] [address] MCH (RBC) [Entitic mass] 33.3 pg Normal 27.0-34.0 [facility] Comment on above: Performed By: #### 2 [id number] #### [facility] [address] [place] [address] MCHC (RBC) [Mass/Vol] 33.2 g/dL Normal 31.4-36.0 [facility] Comment on above: Performed By: #### 2 [id number] #### [facility] [address] [place] [address] MCV (RBC) [Entitic vol] 100.4 fL High 80.0-100.0 [facility] Comment on above: Performed By: #### 2 [id number] #### [facility] [address] [place] [address] Monocytes (Bld) [#/Vol] 0.4 E9/L Normal 0.2-1.0 [facility] Comment on above: Performed By: #### 2 [id number] #### [facility] [address] [place] [address] Neutrophils (Bld) [#/Vol] 5.3 E9/L Normal 2.0-7.5 [facility] Comment on above: Performed By: #### 2 [id number] #### [facility] [address] [place] [address] Neutrophils/100 WBC (Bld) 72.7 % Normal 36.0-75.0 [facility] Comment on above: Performed By: #### 2 [id number] #### [facility] [address] [place] [address] Platelet mean volume (Bld) [Entitic vol] 8.9 fL Normal 6.4-10.8 [facility] Comment on above: Performed By: #### 2 [id number] #### [facility] [address] [place] [address] Platelets (Bld) [#/Vol] 313.0 E9/L Normal 150.0-500.0 [facility] Comment on above: Performed By: #### 2 [id number] #### [facility] [address] [place] [address] RBC (Bld) [#/Vol] 4.4 E12/L Normal 4.3-5.9 [facility] Comment on above: Performed By: #### 2 [id number] #### [facility] [address] [place] [address] WBC corrected for nucl RBC Auto (Bld) [#/Vol] 7.3 E9/L Normal 4.0-11.0 [facility] Comment on above: Performed By: #### 2 [id number] #### [facility] [address] [place] [address] CHEMISTRYOrdered By: SYSTEM SYSTEM on 09-06-2023 Albumin [Mass/Vol] 4.6 g/dL Normal 3.3 - 5.0 gm/dL R emisol Chem Albumin/Globulin [Mass ratio] 1.7 {ratio} Normal 1.1 - 2.2 [facility] ALP [Catalytic activity/Vol] 81 [iU]/d Normal 21 - 98 Int._Unit/L [facility] ALT No additional P-5'-P [Catalytic activity/Vol] 13 [iU]/d Normal 6 - 46 Int._Unit/L [facility] Anion gap [Moles/Vol] 12 mmol/L Normal 6 - 16 mEq/L [facility] AST [Catalytic activity/Vol] 21 [iU]/d Normal 5 - 43 Int._Unit/L [facility] Bilirubin [Mass/Vol] 0.7 mg/dL Normal 0.0 - 1.1 mg/dL [facility] Calcium [Mass/Vol] 9.5 mg/dL Normal 8.9 - 11.1 mg/dL [facility] Chloride [Moles/Vol] 106 mmol/L Normal 101 - 111 mmol/L [facility] Cholesterol [Mass/Vol] 240 mg/dL High 120 - 200 mg/dL [facility] Cholesterol in HDL [Mass/Vol] 62 mg/dL Invalid Interpretation Code [facility] Comment on above: Result Comment: '>= 60 LOW RISK' '<= 40 HIGH RISK' Cholesterol in LDL [Mass/Vol] 154 mg/dL High <=129mg/dL [facility] Cholesterol in VLDL [Mass/Vol] 39 mg/dL Normal 7 - 40 mg/dL [facility] CO2 [Moles/Vol] 25 mmol/L Normal 21 - 31 mmol/L Remis [facility] Creatinine [Mass/Vol] 0.8 mg/dL Normal 0.5 - 1.3 mg/dL [facility] eGFR 81 mL/min/1.73 m2 Normal >=59mL/min /1.73 m2 [facility] Globulin (S) [Mass/Vol] 2.7 g/dL Normal 1.4 - 4.0 gm/dL [facility] Glucose [Mass/Vol] 97 mg/dL Normal 55 - 199 mg/dL Re misol Chem Potassium [Moles/Vol] 4.2 mmol/L Normal 3.5 - 5.3 mmol/L [facility] Protein [Mass/Vol] 7.3 g/dL Normal 6.0 - 7.8 gm/dL R emisol Chem Sodium [Moles/Vol] 139 mmol/L Normal 135 - 145 mmol/L [facility] Triglyceride [Mass/Vol] 197 mg/dL High <=149mg/dL [facility] TSH Qn 1.38 m[IU]/L Normal 0.34 - 5.60 mcIU/mL [facility] Urea nitrogen [Mass/Vol] 15 mg/dL Normal 5 - 21 mg/dL [facility] Urea nitrogen/Creatinine [Mass ratio] 19 mg/mg Normal 10 - 20 [facility] CMPon 09-06-2023 Albumin [Mass/Vol] 4.6 g/dL Normal 3.3-5.0 [facility] Comment on above: Performed By: #### 2 [id number] #### [facility] [address] [place] [address] Albumin/Globulin (S) [Mass conc ratio] 1.7 Normal 1.1-2.2 [facility] Comment on above: Performed By: #### 2 [id number] #### [facility] [address] [place] [address] ALP [Catalytic activity/Vol] 81 Int._Unit/L Normal 21-98 [facility] Comment on above: Performed By: #### 2 [id number] #### [facility] [address] [place] [address] ALT No additional P-5'-P [Catalytic activity/Vol] 13 Int._Unit/L Normal 6-46 [facility] Comment on above: Performed By: #### 2 [id number] #### [facility] [address] [place] [address] Anion gap [Moles/Vol] 12 mmol/L Normal 6-16 [facility] Comment on above: Performed By: #### 2 [id number] #### [facility] [address] [place] [address] AST [Catalytic activity/Vol] 21 Int._Unit/L Normal 5-43 [facility] Comment on above: Performed By: #### 2 [id number] #### [facility] [address] [place] [address] Bilirubin [Mass/Vol] 0.7 mg/dL Normal 0.0-1.1 [facility] Comment on above: Performed By: #### 2 [id number] #### [facility] [address] [place] [address] Calcium [Mass/Vol] 9.5 mg/dL Normal 8.9-11.1 [facility] Comment on above: Performed By: #### 2 [id number] #### [facility] [address] [place] [address] Chloride [Moles/Vol] 106 mmol/L Normal 101-111 [facility] Comment on above: Performed By: #### 2 [id number] #### [facility] [address] [place] [address] CO2 [Moles/Vol] 25 mmol/L Normal 21-31 [facility] Comment on above: Performed By: #### 2 [id number] #### [facility] [address] [place] [address] Creatinine [Mass/Vol] 0.8 mg/dL Normal 0.5-1.3 [facility] Comment on above: Performed By: #### 2 [id number] #### [facility] [address] [place] [address] Globulin (S) [Mass/Vol] 2.7 g/dL Normal 1.4-4.0 [facility] Comment on above: Performed By: #### 2 [id number] #### [facility] [address] [place] [address] Glucose [Mass/Vol] 97 mg/dL Normal 55-199 [facility] Comment on above: Performed By: #### 2 [id number] #### [facility] [address] [place] [address] Potassium [Moles/Vol] 4.2 mmol/L Normal 3.5-5.3 [facility] Comment on above: Performed By: #### 2 [id number] #### [facility] [address] [place] [address] Protein [Mass/Vol] 7.3 g/dL Normal 6.0-7.8 [facility] Comment on above: Performed By: #### 2 [id number] #### [facility] [address] [place] [address] Sodium [Moles/Vol] 139 mmol/L Normal 135-145 [facility] Comment on above: Performed By: #### 2 [id number] #### [facility] [address] [place] [address] Urea nitrogen [Mass/Vol] 15 mg/dL Normal 5-21 [facility] Comment on above: Performed By: #### 2 [id number] #### [facility] [address] [place] [address] Urea nitrogen/Creatinine [Mass ratio] 19 No Units Normal 10-20 [facility] Comment on above: Performed By: #### 2 [id number] #### [facility] [address] [place] [address] Consenton 09-06-2023 Consent [id number] Normal [facility] HEMATOLOGYOrdered By: SYSTEM SYSTEM on 09-06-2023 Basophils/100 WBC (Bld) 0.5 % Normal 0.0 - 2.0 % [facility] Basophils/Leukocyte s Auto (Bld) [Pure # fraction] 0.0 E9/L Normal 0.0 - 0.2 E9/L [facility] Eosinophils (Bld) [#/Vol] 0.1 E9/L Normal 0.0 - 0.5 E9/L [facility] Eosinophils/100 WBC (Bld) 1.4 % Normal 0.0 - 8.0 % [facility] Erythrocyte distribution width (RBC) [Ratio] 13.1 % Normal 10.9 - 14.2 % [facility] Hematocrit (Bld) [Volume fraction] 44.1 % Normal 34.0 - 46.0 % [facility] Hemoglobin (Bld) [Mass/Vol] 14.6 g/dL Normal 12.0 - 16.0 gm/dL [facility] Lymphocytes (Bld) [#/Vol] 1.4 E9/L Normal 1.0 - 4.0 E9/L [facility] Lymphocytes/100 WBC (Bld) 19.3 % Normal 14.0 - 50.0 % [facility] MCH (RBC) [Entitic mass] 33.3 pg Normal 27.0 - 34.0 pg [facility] MCHC (RBC) [Mass/Vol] 33.2 g/dL Normal 31.4 - 36.0 gm/dL [facility] MCV (RBC) [Entitic vol] 100.4 fL High 80.0 - 100.0 fL [facility] Monocytes (Bld) [#/Vol] 0.4 E9/L Normal 0.2 - 1.0 E9/L [facility] Monocytes/100 WBC (Bld) 6.1 % Normal 4.0 - 14.0 % [facility] Neutrophils (Bld) [#/Vol] 5.3 E9/L Normal 2.0 - 7.5 E9/L [facility] Neutrophils/100 WBC (Bld) 72.7 % Normal 36.0 - 75.0 % [facility] Platelet mean volume (Bld) [Entitic vol] 8.9 fL Normal 6.4 - 10.8 fL [facility] Platelets (Bld) [#/Vol] 313.0 E9/L Normal 150.0 - 500.0 E9/L [facility] RBC (Bld) [#/Vol] 4.4 E12/L Normal 4.3 - 5.9 E12/L Re misol Heme WBC corrected for nucl RBC Auto (Bld) [#/Vol] 7.3 E9/L Normal 4.0 - 11.0 E9/L [facility] Lipid Panelon 09-06-2023 Cholesterol [Mass/Vol] 240 mg/dL High 120-200 [facility] Comment on above: Performed By: #### 2 [id number] #### [facility] [address] [place] [address] Cholesterol in HDL [Mass/Vol] 62 mg/dL Invalid Interpretation Code [facility] Comment on above: Result Comment: '>= 60 LOW RISK' '<= 40 HIGH RISK' Performed By: #### 2 [id number] #### [facility] [address] [place] [address] Cholesterol in LDL [Mass/Vol] 154 mg/dL High <=129 [facility] Comment on above: Performed By: #### 2 [id number] #### [facility] [address] [place] [address] Cholesterol in VLDL [Mass/Vol] 39 mg/dL Normal 7-40 [facility] Comment on above: Performed By: #### 2 [id number] #### [facility] [address] [place] [address] Triglyceride [Mass/Vol] 197 mg/dL High <=149 [facility] Comment on above: Performed By: #### 2 [id number] #### [facility] [address] [place] [address] Patient Educationon 09-06-19 24 Patient Education Nutrition DASH Eating Plan DASH stands for Dietary Approaches to Stop Hypertension. The DASH eating plan is a healthy eating plan that has been shown to: ? Reduce high blood pressure (hypertension). ? Reduce your risk for type 2 diabetes, heart disease, and stroke. ? Help with weight loss. What are tips for following this plan? Reading food labels ? Check food labels for the amount of salt (sodium) per serving. Choose foods with less than 5 percent of the Daily Value of sodium. Generally, foods with less than 300 milligrams (mg) of sodium per serving fit into this eating plan. ? To find whole grains, look for the word whole as the first word in the ingredient list. Shopping ? Buy products labeled as low-sodium or no salt added. ? Buy fresh foods. Avoid canned foods and pre-made or frozen meals. Cooking ? Avoid adding salt when cooking. Use salt-free seasonings or herbs instead of table salt or sea salt. Check with your health care provider or pharmacist before using salt substitutes. ? Do not anderson foods. Cook foods using healthy methods such as baking, boiling, grilling, roasting, and broiling instead. ? Cook with heart-healthy oils, such as olive, canola, avocado, soybean, or sunflower oil. Meal planning ? Eat a balanced diet that includes: ? 4 or more servings of fruits and 4 or more servings of vegetables each day. Try to fill one-half of your plate with fruits and vegetables. ? 6?8 servings of whole grains each day. ? Less than 6 oz (170 g) of lean meat, poultry, or fish each day. A 3-oz (85-g) serving of meat is about the same size as a deck of cards. One egg equals 1 oz (28 g). ? 2?3 servings of low-fat dairy each day. One serving is 1 cup (237 mL). ? 1 serving of nuts, seeds, or beans 5 times each week. ? 2?3 servings of heart-healthy fats. Healthy fats called omega-3 fatty acids are found in foods such as walnuts, flaxseeds, fortified milks, and eggs. These fats are also found in cold-water fish, such as sardines, salmon, and mackerel. ? Limit how much you eat of: ? Canned or prepackaged foods. ? Food that is high in trans fat, such as some fried foods. ? Food that is high in saturated fat, such as fatty meat. ? Desserts and other sweets, sugary drinks, and other foods with added sugar. ? Full-fat dairy products. ? Do not salt foods before eating. ? Do not eat more than 4 egg yolks a week. ? Try to eat at least 2 vegetarian meals a week. ? Eat more home-cooked food and less restaurant, buffet, and fast food. Lifestyle ? When eating at a restaurant, ask that your food be prepared with less salt or no salt, if possible. ? If you drink alcohol: ? Limit how much you use to: ? 0?1 drink a day for women who are not . ? 0?2 drinks a day for men. ? Be aware of how much alcohol is in your drink. In the [place] one drink equals one 12 oz bottle of beer (355 mL), one 5 oz glass of wine (148 mL), or one 1? oz glass of hard liquor (44 mL). General information ? Avoid eating more than 2,300 mg of salt a day. If you have hypertension, you may need to reduce your sodium intake to 1,500 mg a day. ? Work with your health care provider to maintain a healthy body weight or to lose weight. Ask what an ideal weight is for you. ? Get at least 30 minutes of exercise that causes your heart to beat faster (aerobic exercise) most days of the week. Activities may include walking, swimming, or biking. ? Work with your health care provider or dietitian to adjust your eating plan to your individual calorie needs. What foods should I eat? Fruits All fresh, dried, or frozen fruit. Canned fruit in natural juice (without added sugar). Vegetables Fresh or frozen vegetables (raw, steamed, roasted, or grilled). Low-sodium or reduced-sodium tomato and vegetable juice. Low-sodium or reduced-sodium tomato sauce and tomato paste. Low-sodium or reduced-sodium canned vegetables. Grains Whole-grain or whole-wheat bread. Whole-grain or whole-wheat pasta. Brown rice. Oatmeal. Quinoa. Bulgur. Whole-grain and low-sodium cereals. Angelina bread. Low-fat, low-sodium crackers. Whole-wheat flour tortillas. Meats and other proteins Skinless chicken or turkey. Ground chicken or turkey. Pork with fat trimmed off. Fish and seafood. Egg whites. Dried beans, peas, or lentils. Unsalted nuts, nut butters, and seeds. Unsalted canned beans. Lean cuts of beef with fat trimmed off. Low-sodium, lean precooked or cured meat, such as sausages or meat loaves. Dairy Low-fat (1%) or fat-free (skim) milk. Reduced-fat, low-fat, or fat-free cheeses. Nonfat, low-sodium ricotta or cottage cheese. Low-fat or nonfat yogurt. Low-fat, low-sodium cheese. Fats and oils Soft margarine without trans fats. Vegetable oil. Reduced-fat, low-fat, or light mayonnaise and salad dressings (reduced-sodium). Canola, safflower, olive, avocado, soybean, and sunflower oils. Avocado. Seasonings and condiments Herbs. Spices. Seasoni (more content not included)... Normal [facility] Screenson 09-06-2023 Screens [id number] Normal [facility] TSH With T4fr Reflexon 09-05 TSH Qn 1.38 m[IU]/L Normal 0.34-5.60 [facility] Comment on above: Performed By: #### 1 [id number] #### [facility] [address] [place] [address] eGFRon 09-06-2023 eGFR 81 mL/min/1.73 m2 Normal >=59 [facility] Comment on above: Order Comment: Order added by Discern Expert. Performed By: #### 1 [id number] #### [facility] [address] [place] [address] Hand / UE Inj/Asp: Daisy small A 1on 08-02-2023 Feliz Tierney, DO 08/02/2023 6:29 PM Hand / UE Inj/Asp: Daisy tom A1 for trigger finger on 08/02/2023 9:39 AM Indications: pain and tendon swelling Details: 25 G needle, volar approach Medications: 10 mg triamcinolone acetonide 10 mg/mL; 1 mL lidocaine 10 mg/mL (1 %) Outcome: tolerated well, no immediate complications Procedure, treatment alternatives, risks and benefits explained, specific risks discussed. Consent was given by the patient. Immediately prior to procedure a time out was called to verify the correct patient, procedure, equipment, child support specialist and site/side marked as required. Patient was prepped and draped in the usual sterile fashion. [facility] Work Phone: [facility] Work Phone: Ambulatory Visit Summaryon 0 07-04-2023 Ambulatory Visit Summary LORETO VASQUEZ :1955 Visit Date:07/04/2023 Ambulatory Visit Instructions Your Diagnosis Cough BMI 27.0-27.9,adult Non-smoker Your Care Team Attending Physician - Ashley Colvin Primary Care Physician - Ashley Colvin This Is Your Medications List benzonatate (benzonatate 200 mg oral capsule) magnesium oxide (magnesium oxide 400 mg Tab) omeprazole (omeprazole 40 mg Cap-DR) valacyclovir (valacyclovir 1 g Tab) valsartan (valsartan 160 mg Tab) Procedures Performed Colonoscopy (01/27/2022), Arthroplasty of knee, Arthroplasty of knee, Cholecystectomy, Meniscal repair, Tonsillectomy and adenoidectomy, Vaginal total hysterectomy. Discharge Vitals Heart Rate (Peripheral) 78 Respiratory Rate 18 Blood Pressure 132/80 Height 157.0 cm Height 62 in Weight 68.0 kg Weight 149.6 lb BMI 27.59 What to do next Scheduled Follow-Up Appointments Tuesday 8:00 AM EDT Where: [facility] Medicine Radha Normal [facility] Consent for Immunizationon 0 07-04-2023 Consent for Immunization [id number] F Normal [facility] Office/Clini c Noteon 07-04-2023 [facility] Office/Clinic Note HPI Staff Loreto is a 67 year old female presenting for acute visit Respiratory C/O: CANDE 05/30/23 z-pack, Medrol dose pack Onset: 1 week pt feels a burning sensation in nose and throat and has non productive harsh cough, nasal congestion. Has some improvement from taking medication. Jorge Luis fevers. pt is going to see grandson on Tuesday and is concerned History of Present Illness pt presents today with continued cough Review of Systems PHQ Score Initial Depression Screen Score: 0 SCORE Physical Exam Vitals & Measurements HR: 78(Peripheral) RR: 18 BP: 132/80 SpO2: 98% HT: 62 in HT: 157.0 cm WT: 68.0 kg WT: 149.6 lb BMI: 27.59 General: alert, no acute distress ENMT: oral mucosa moist, no pharyngeal erythema or exudate Cardiovascular: regular rate and rhythm, normal peripheral perfusion Respiratory: Lungs CTA, respirations non labored Extremities: no deformity, no trauma Neurological: oriented x 4, LOC appropriate for age, CN II-XII intact, motor strength equal & normal bilaterally, speech normal Assessment/Plan 1. Cough (R05.9: Cough, unspecified) pt continues to have harsh cough. does not have a fever. just lingering cough. she is concerned she will get her grandson sick when she visits him on Tuesday. will give her a kenalog injection in office today. pt advised to get sudafed OTC as well. RTC as needed Ordered: triamcinolone, 40 mg = 1 mL, Injection, IntraMuscular, Once, Stop date 07/04/23 9:15:00 EDT, Routine, Start date 07/04/23 9:15:00 EDT, 07/04/23 9:15:00 EDT 2. BMI 27.0-27.9,adult (Z68.27: Body mass index [BMI] 27.0-27.9, adult) BMI education complete Ordered: triamcinolone, 40 mg = 1 mL, Injection, IntraMuscular, Once, Stop date 07/04/23 9:15:00 EDT, Routine, Start date 07/04/23 9:15:00 EDT, 07/04/23 9:15:00 EDT 3. Non-smoker (Z78.9: Other specified health status) continue not smoking Ordered: triamcinolone, 40 mg = 1 mL, Injection, IntraMuscular, Once, Stop date 07/04/23 9:15:00 EDT, Routine, Start date 07/04/23 9:15:00 EDT, 07/04/23 9:15:00 EDT Orders: methylPREDNISolone, = 1 packet(s), Oral, Once, as directed on package labeling, # 21 tab(s), Refills(s) 0, Pharmacy: [facility], 157, cm, 06/28/23 8:55:00 EDT, Height/Length Dosing, 67.8, kg, 06/28/23 8:55:00 EDT, Weight Dosing Follow-up No qualifying data available Problem List/Past Medical History Ongoing Abdominal pain, LLQ (left lower quadrant) Abnormal CT scan, pelvis Atrial fibrillation BMI 26.0-26.9,adult Cough COVID-19 Diverticulosis Hiatal hernia with GERD History of atrial fibrillation HTN (hypertension) Loose stools Osteoarthritis Sinusitis Historical No qualifying data Procedure/Surgical History Colonoscopy (01/27/2022), Arthroplasty of knee, Arthroplasty of knee, Cholecystectomy, Meniscal repair, Tonsillectomy and adenoidectomy, Vaginal total hysterectomy. Medications benzonatate 200 mg oral capsule, 200 mg= 1 cap(s), Oral, TID magnesium oxide 400 mg Tab, 400 mg= 1 tab(s), Oral, Daily omeprazole 40 mg Cap-DR, 40 mg= 1 cap(s), Oral, Daily, 1 refills valacyclovir 1 g Tab, 1 gm= 1 tab(s), Oral, BID valsartan 160 mg Tab, 160 mg= 1 tab(s), Oral, Daily Allergies Influenza Virus Vaccine (Hives) sulfa drugs (Hives) Social History Alcohol - Low Risk, 09/02/2022 Current, Beer, 1-2 times per month, 2 drinks/episode average. Household alcohol concerns: No., 09/02/2022 Substance Abuse - Denies Substance Abuse, 12/30/2021 Tobacco Former smoker, quit more than 30 days ago Tobacco Use:. Never Smokeless Tobacco Use:. Cigarettes, 0.5 per day. Started age 18.0 Years. Stopped age 46 Years. Household tobacco concerns: No., 07/04/2023 Family History Acute myocardial infarction: Father and Sister. Diabetes mellitus type 2: Father and Sister. Heart failure: Father. Parkinson disease: Mother. Primary malignant neoplasm of bladder: Father. Primary malignant neoplasm of female breast: Sister. Immunizations Vaccine Date Status Comments SARS-CoV-2 (COVID-19) [id number] 03/10/2022 Recorded 2022-07-27: TPV65 pneumococcal 13-valent vaccine 02/01/2022 Recorded influenza virus vaccine, inactivated - Not Given Patient Refuses SARS-CoV-2 (COVID-19) mRNA-1273 vaccine 07/22/2021 Recorded SARS-CoV-2 (COVID-19) mRNA-1273 vaccine 01/24/2021 Recorded 2022-07-27: TPV60 SARS-CoV-2 (COVID-19) Ad26 vaccine 06/07/2020 Recorded zoster vaccine live 10/27/2015 Recorded hepatitis B adult vaccine 11/25/2014 Recorded diphtheria/pertussis, acel/tetanus adult 06/25/2014 Recorded hepatitis B adult vaccine 06/25/2014 Recorded hepatitis B adult vaccine 05/28/2014 Recorded Normal [facility] Comment on above: Result Comment: Elec tronically Signed By: Ashley Colvin\.br\Date and Time Signed: 07/04/23 10:24 EDT Ambulatory Visit Summaryon 0 06-28-2023 Ambulatory Visit Summary LORETO VASQUEZ :1955 Visit Date:06/28/2023 Ambulatory Visit Instructions Your Care Team Attending Physician - Ashley Colvin Primary Care Physician - Ashley Colvin This Is Your Medications List magnesium oxide (magnesium oxide 400 mg Tab) omeprazole (omeprazole 40 mg Cap-DR) valacyclovir (valacyclovir 1 g Tab) valsartan (valsartan 160 mg Tab) Procedures Performed Colonoscopy (01/27/2022), Arthroplasty of knee, Arthroplasty of knee, Cholecystectomy, Meniscal repair, Tonsillectomy and adenoidectomy, Vaginal total hysterectomy. Discharge Vitals Temperature (Oral) 36 ?C Heart Rate (Peripheral) 68 Blood Pressure 160/86 Height 157 cm Height 62 in Weight 67.85 kg Weight 149.27 lb BMI 27.53 What to do next Scheduled Follow-Up Appointments Tuesday 8:00 AM EDT Where: [facility] Family Medicine Radha Normal [facility] Medicine Office/Clini c Noteon 06-28-2023 Family Medicine Office/Clinic Note Chief Complaint coughing and headache HPI Staff Patient presents for acute visit. _Respiratory C/O: Duration: couple days ago Body aches: no Chest congestion: no Chills: no Cough: yes Ear complaints: no Eye itching/watering: yes watering Fever: no Headache: yes Nasal congestion: yes Nasal discharge: yes clear Poor appetite: no Reduced activity: no Sinus pain/pressure: no Sneezing: yes Sputum production: no Wheezing: no Ill contacts: no Remedies tried: gabriella seltzer pills covid test negative at home History of Present Illness pt presents today with URI sympotms Review of Systems PHQ Score Initial Depression Screen Score: 0 SCORE Physical Exam Vitals & Measurements T: 36 ?C(Oral) HR: 68(Peripheral) BP: 160/86 SpO2: 97% HT: 62 in HT: 157 cm WT: 67.85 kg WT: 149.27 lb BMI: 27.53 General: alert, no acute distress ENMT: oral mucosa moist, no pharyngeal erythema or exudate, Right TM red, sinus tenderness, watery eyes Cardiovascular: regular rate and rhythm, normal peripheral perfusion Respiratory: Lungs CTA, respirations non labored Extremities: no deformity, no trauma Neurological: oriented x 4, LOC appropriate for age, CN II-XII intact, motor strength equal & normal bilaterally, speech normal Assessment/Plan 1. Sinusitis (J32.9: Chronic sinusitis, unspecified) sunus tenderness and swollen, congestion ,cough. will treat with zpack and medrol dose pack Ordered: benzonatate, 200 mg = 1 cap(s), Oral, TID, X 7 day(s), # 21 cap(s), Refills(s) 0, Pharmacy: [facility], 157, cm, 06/28/23 8:55:00 EDT, Height/Length Dosing, 67.8, kg, 06/28/23 8:55:00 EDT, Weight Dosing 2. 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 Ordered: benzonatate, 200 mg = 1 cap(s), Oral, TID, X 7 day(s), # 21 cap(s), Refills(s) 0, Pharmacy: [facility], 157, cm, 06/28/23 8:55:00 EDT, Height/Length Dosing, 67.8, kg, 06/28/23 8:55:00 EDT, Weight Dosing Orders: azithromycin, = 1 packet(s), Oral, As Directed, as directed on package labeling, X 5 day(s), # 6 tab(s), Refills(s) 0, Pharmacy: [facility], 157, cm, 06/28/23 8:55:00 EDT, Height/Length Dosing, 67.8, kg, 06/28/23 8:55:00 EDT, Weight Dosing azithromycin, 250 mg, Oral, As Directed, # 6 tab(s), Refills(s) 0, Pharmacy: [facility]/pharmacy #[id number], 157, cm, 11/15/22 8:47:00 EDT, Height/Length Dosing, 68.1, kg, 11/15/22 8:47:00 EDT, Weight Dosing azithromycin, 250 mg, Oral, As Directed, # 6 tab(s), Refills(s) 0, Pharmacy: [facility], 157, cm, 11/15/22 8:47:00 EDT, Height/Length Dosing, 68.1, kg, 11/15/22 8:47:00 EDT, Weight Dosing methylPREDNISolone, = 1 packet(s), Oral, Once, as directed on package labeling, # 21 tab(s), Refills(s) 0, Pharmacy: [facility], 157, cm, 06/28/23 8:55:00 EDT, Height/Length Dosing, 67.8, kg, 06/28/23 8:55:00 EDT, Weight Dosing nirmatrelvir-ritonavir, See Instructions, Oral, BID, 20 tab(s), Refill(s) 0, RENAL MODERATE IMPAIRMENT: 2 Tablets twice daily for 5 days. 1 tab of nirmatrelvir and 1 tab of ritonavir., [facility]/pharmacy #[id number], 157, cm, 11/15/22 8:47:00 EDT, Height/Length Dosing, 68.1, kg, ... nirmatrelvir-ritonavir, See Instructions, Oral, BID, 20 tab(s), Refill(s) 0, RENAL MODERATE IMPAIRMENT: 2 Tablets twice daily for 5 days. 1 tab of nirmatrelvir and 1 tab of ritonavir., [facility], 157, cm, 11/15/22 8:47:00 EDT, Height/Length Dosing, 68.1, kg,... Follow-up No qualifying data available Problem List/Past Medical History Ongoing Abdominal pain, LLQ (left lower quadrant) Abnormal CT scan, pelvis Atrial fibrillation BMI 26.0-26.9,adult Cough COVID-19 Diverticulosis Hiatal hernia with GERD History of atrial fibrillation HTN (hypertension) Loose stools Osteoarthritis Sinusitis Historical No qualifying data Procedure/Surgical History Colonoscopy (01/27/2022), Arthroplasty of knee, Arthroplasty of knee, Cholecystectomy, Meniscal repair, Tonsillectomy and adenoidectomy, Vaginal total hysterectomy. Medications azithromycin 250 mg Tab, 1 packet(s), Oral, As Directed benzonatate 200 mg oral capsule, 200 mg= 1 cap(s), Oral, TID magnesium oxide 400 mg Tab, 400 mg= 1 tab(s), Oral, Daily methylPREDNISolone 4 mg tab dosepak, 1 packet(s), Oral, Once omeprazole 40 mg Cap-DR, 40 mg= 1 cap(s), Oral, Daily, 1 refills valacyclovir 1 g Tab, 1 gm= 1 tab(s), Oral, BID valsartan 160 mg Tab, 160 mg= 1 tab(s), Oral, Daily Allergies Influenza Virus Vaccine (Hives) sulfa drugs (Hives) Social History Alcohol - Low Risk, 09/02/2022 Current, Beer, 1-2 times per month, 2 drinks/episode average. Household alcohol concerns: No., 09/02/2022 Substance Abuse - Denies Substance Abuse, 12/30/2021 Tobacco Former smoker, quit more than 30 days ago Tobacco Use:. Never Smokeless Tobacco Use:. Cigarettes, 0.5 per day. Started age 19.0 Years. Stopped age 46 Years. Household tobacco concerns: No., 06/28/2023 Family History Ac (more content not included)... Normal [facility] Comment on above: Result Comment: Elec tronically Signed By: Ashley Colvin\.br\Date and Time Signed: 06/28/23 09:38 EDT Hand / UE Inj/Asp: L thumb A 1on 05-03-2023 Feliz Tierney, 05/03/2023 5:19 PM Hand / UE Inj/Asp: L thumb A1 for trigger finger on 05/03/2023 1:58 PM Indications: pain and tendon swelling Details: 25 G needle, volar approach Medications: 5 mg triamcinolone acetonide 10 mg/mL; 0.5 mL lidocaine 10 mg/mL (1 %) Outcome: tolerated well, no immediate complications Trigger Finger Injection: It was explained to the patient that the risks of a steroid injection include but are not limited to infection, local skin irritation, skin atrophy, calcification, continued pain and discomfort, elevation of blood sugar, burning, failure to relieve pain, and possibility of infection. The patient verbalized good insight and verbalized consent for the injection. It was further explained that the postinjection discomfort can be alleviated with additional medications, ice, elevation, and rest over the first 24 hours, and that these modalities are recommended. Using aseptic technique, a solution containing 5 mg of Kenalog and 0.5 cc of 1% lidocaine without epinephrine was injected into the flexor retinacular sheath. A 25-gauge needle was advanced into the flexor retinacular sheath at the level of the A1 alfred and the steroid solution was injected slowly. A band-aid was then placed over the injection site. The patient was then asked to flex and extend the digits to help disperse the injection. The patient tolerated this trigger finger injection well. It should be noted that ethyl chloride spray was used to make the injection delivery more comfortable for the patient. Procedure, treatment alternatives, risks and benefits explained, specific risks discussed. Consent was given by the patient. Immediately prior to procedure a time out was called to verify the correct patient, procedure, equipment, child support specialist and site/side marked as required. Patient was prepped and draped in the usual sterile fashion. [facility] Work Phone: [facility] Work Phone: [employer] 02-28-2023 Forms [id number] F Normal [facility] EMG & nerve conductionon Teofilo Bradley MD - 02/15/2023 Referring provider: Feliz Tierney DO [address] [facility], [address] [place] [address] Reason for the study: Numbness in the right hand mostly Comment: Motor nerve conduction velocities are slowed in all the nerves tested being worse in the right ulnar nerve over the elbow segment F-wave latencies are delayed in all the nerves tested Distal motor latencies are delayed in the right median nerve, borderline delayed in the right ulnar nerve and normal on the left side. distal sensory latencies are normal in all the nerves tested Amplitude of motor responses is decreased in all the nerves tested Amplitude of sensory responses is normal in the right median nerve and decreased in other nerves tested On the Concentric needle electrode examination denervation changes apparent in the small muscles of the left hand Clinical interpretation: Right median nerve compression neuropathy at the wrist consistent with diagnosis of moderate right carpal tunnel syndrome Due to continued symptoms decompression right median nerve may be considered Right ulnar nerve compression neuropathy elbow. If clinically indicated mobilization of the right ulnar nerve from the ulnar groove may be considered Low amplitude changes raise the possibility of peripheral neuropathic process. If clinically indicated causes of peripheral neuropathy could be looked into such as diabetes mellitus, hypothyroidism, exposure to toxins autoimmune disorder etc. Thank you for the referral Please feel free to call me if I can be of any further assistance regarding this patient's evaluation [facility] Work Phone: No Panel Informationon 02-15 Referring provider: Feliz Tierney DO [address] [facility], [address] [place] [id number] Reason for the study: Numbness in the right hand mostly Comment: Motor nerve conduction velocities are slowed in all the nerves tested being worse in the right ulnar nerve over the elbow segment F-wave latencies are delayed in all the nerves tested Distal motor latencies are delayed in the right median nerve, borderline delayed in the right ulnar nerve and normal on the left side. distal sensory latencies are normal in all the nerves tested Amplitude of motor responses is decreased in all the nerves tested Amplitude of sensory responses is normal in the right median nerve and decreased in other nerves tested On the Concentric needle electrode examination denervation changes apparent in the small muscles of the left hand Clinical interpretation: Right median nerve compression neuropathy at the wrist consistent with diagnosis of moderate right carpal tunnel syndrome Due to continued symptoms decompression right median nerve may be considered Right ulnar nerve compression neuropathy elbow. If clinically indicated mobilization of the right ulnar nerve from the ulnar groove may be considered Low amplitude changes raise the possibility of peripheral neuropathic process. If clinically indicated causes of peripheral neuropathy could be looked into such as diabetes mellitus, hypothyroidism, exposure to toxins autoimmune disorder etc. 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 PLAN: Treatment options were discussed. Recommendations were made for EMG/nerve conduction study tests to evaluate for ulnar nerve compression at the right elbow, the right wrist, or both. I will see her back when the study is complete. I think when it comes to treatment recommendations we will be recommending for surgery that will likely include a cubital tunnel release regardless of what is imaged on the EMG test. The patient has a thickening of tissues about the posteromedial elbow that gives a high suspicion for anconeus epitrochlearis. Chief Complaint Follow up visit 1. Right hand pain History of Present IllnessThe patient presents today for evaluation of numbness and tingling through ulnar nerve distribution to the right hand. The patient is right hand dominant and otherwise healthy. She is not a smoker. She presents today for evaluation and treatment. She describes clumsiness to the right hand. 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 She reports that the hand just is not working right. She is dropping things. She has symptoms compatible with ulnar nerve irritation. She has electrical disturbance that shoots up and down the arm from the elbow. She denies discrete elbow pain on the right, however. Active Problems Problems Former smoker (V15.82) (Z87.891) Quit in 2002 Hyperlipidemia (272.4) (E78.5) Hypertension (401.9) (I10) Overweight with body mass index (BMI) of 26 to 26.9 in adult (278.02,V85.22) (E66.3,Z68.26) Palpitations (785.1) (R00.2) Past Medical History The patient's past medical history was reviewed in the electronic medical record. There are no interval updates. The patient is not and not within three months . Surgical History Problems History of Complete colonoscopy Managed By: Dillan Anna MD (General Surgery) History of Gallbladder surgery History of Hysterectomy History of Knee replacement History of Knee surgery History of Tonsillectomy Family History Mother No pertinent family history Father Family history of myocardial infarction (V17.3) (Z82.49) Sister age 55 Sister Family history of dementia (V17.2) (Z81.8) Family history of malignant neoplasm of breast (V16.3) (Z80.3) Family history of myocardial infarction (V17.3) (Z82.49) Sister age 55 Brother No pertinent family history Social History Problems Caffeine use (V49.89) (Z78.9) 1/2 cup decaf 1 cup regualar coffee daily Consumes alcohol (V49.89) (Z78.9) occasional Former smoker (V15.82) (Z87.891) Quit in 2002 No illicit drug use Allergies Bactrim TABS Hives;; Recorded By: Chantale Argueta; 02/03/2021 9:43:32 AM Influenza (Split PF) Hives;; Recorded By: Chantale Argueta; 02/03/2021 9:43:32 AM Current Meds Medication NameInstruction Fish Oil 1000 MG Oral CapsuleTAKE 2 CAPSULE Daily Magnesium 400 MG Oral TabletTake 1 tablet daily Multi Vitamin TABSTAKE 1 TABLET DAILY. Valsartan 160 MG Oral TabletTake 1 tablet by mouth daily. Physical Exam GENERAL: No acute distress and breathing comfortably; pleasant and cooperative with the examination. EXTREMITIES: Evaluation of the right upper extremity finds the patient to have a palpable radial artery at the wrist with brisk capillary refill to all digits. The patient has intact sensorium to axillary, radial, median and ulnar nerves. There are no open wounds. There are no signs of infection. There is no evidence of lymphedema or lymphatic streaking. The patient has supple compartments of the right arm, forearm and hand. Positive Tinel?s over the course of the ulnar nerve to the right elbow and right wrist. There is palpable thickening of tissues to the bilateral elbows about the posteromedial aspect possibly consistent with anconeus epitrochlearis bilaterally. Signatures Electronically signed by : Keely Irvin, ; Dec 20 2022 12:05PM EST (Fusion Operator/Record er) Electronically signed by : Feliz Tierney DO; Dec 20 2022 4:21PM EST Normal [facility] Ambulatory Visit Summaryon 0 11-15-2022 Ambulatory Visit Summary LORETO VASQUEZ :1955 Visit Date:11/15/2022 Ambulatory Visit Instructions Your Diagnosis Hiatal hernia with GERD Gastro-esophageal reflux disease without esophagitis BMI 27.0-27.9,adult Non-smoker Your Care Team Attending Physician - Ashley Colvin Primary Care Physician - Ashley Colvin This Is Your Medications List magnesium oxide (magnesium oxide 400 mg Tab) omega-3 polyunsaturated fatty acids (Dewey-3 1000 mg oral capsule) omeprazole (omeprazole 40 mg Cap-DR) valacyclovir (valacyclovir 1 g Tab) valsartan (valsartan 160 mg Tab) Procedures Performed Colonoscopy (01/27/2022), Arthroplasty of knee, Arthroplasty of knee, Cholecystectomy, Meniscal repair, Tonsillectomy and adenoidectomy, Vaginal total hysterectomy. Discharge Vitals Heart Rate (Peripheral) 64 Respiratory Rate 18 Blood Pressure 136/90 Height 157 cm Height 62 in Weight 68.12 kg Weight 149.864 lb BMI 27.64 What to do next Scheduled Follow-Up Appointments Tuesday 8:00 AM EDT Where: [facility] Family Medicine Office/Clini c Noteon 11-15-2022 Family Medicine Office/Clinic Note HPI Staff Loreto is a 67 year old female presenting to go over MRI results from [facility] Pt calling hospital to have records sent to office. 11/11/22 MRI done on 11/08/22 Incidentally found hiatal hernia pt states she does have some feeling of being uncomfortable epigastric area, denies any pain History of Present Illness pt presents today to discuss hiatal hernia that was incidentally found on breast MRI. Review of Systems PHQ Score Initial Depression Screen Score: 0 ROS - Provider Constitutional: no fever, no chills, no sweats, no fatigue Respiratory: no shortness of breath, no cough, no orthopnea, no wheezing. Cardiovascular: no chest pain, no palpitations, no edema. Neurologic: no headache, no dizziness, no numbness, no weakness. GI: epigastric pain Physical Exam Vitals & Measurements HR: 64(Peripheral) RR: 18 BP: 136/90 SpO2: 99% HT: 62 in HT: 157 cm WT: 68.12 kg WT: 149.864 lb BMI: 27.64 General: alert, no acute distress ENMT: oral mucosa moist, no pharyngeal erythema or exudate Cardiovascular: regular rate and rhythm, normal peripheral perfusion Respiratory: Lungs CTA, respirations non labored Extremities: no deformity, no trauma Neurological: oriented x 4, LOC appropriate for age, CN II-XII intact, motor strength equal & normal bilaterally, speech normal Assessment/Plan 1. Hiatal hernia with GERD (K44.9: Diaphragmatic hernia without obstruction or gangrene) pt presents today to discuss hiatla hernia that was found on MRI of breast. pt states she does have acid reflux and does have mid epigastric pain. will start omeprazole. pt encouraged to make appointment for follow up if pain is not better in 4-6 weeks. will then refer to GI if needed at that time. all questions answered. RTC as needed Ordered: omeprazole, 40 mg = 1 cap(s), Oral, Daily, # 90 cap(s), Refills(s) 1, Pharmacy: [facility], 157, cm, 11/15/22 8:47:00 EDT, Height/Length Dosing, 68.1, kg, 11/15/22 8:47:00 EDT, Weight Dosing 2. Gastro-esophageal reflux disease without esophagitis (K21.9: Gastro-esophageal reflux disease without esophagitis) omeprazole sent to pharmacy Ordered: omeprazole, 40 mg = 1 cap(s), Oral, Daily, # 90 cap(s), Refills(s) 1, Pharmacy: [facility], 157, cm, 11/15/22 8:47:00 EDT, Height/Length Dosing, 68.1, kg, 11/15/22 8:47:00 EDT, Weight Dosing 3. BMI 27.0-27.9,adult (Z68.27: Body mass index [BMI] 27.0-27.9, adult) BMI education complete Ordered: omeprazole, 40 mg = 1 cap(s), Oral, Daily, # 90 cap(s), Refills(s) 1, Pharmacy: [facility], 157, cm, 11/15/22 8:47:00 EDT, Height/Length Dosing, 68.1, kg, 11/15/22 8:47:00 EDT, Weight Dosing 4. Non-smoker (Z78.9: Other specified health status) continue not smoking Ordered: omeprazole, 40 mg = 1 cap(s), Oral, Daily, # 90 cap(s), Refills(s) 1, Pharmacy: [facility], 157, cm, 11/15/22 8:47:00 EDT, Height/Length Dosing, 68.1, kg, 11/15/22 8:47:00 EDT, Weight Dosing Follow-up No qualifying data available Problem List/Past Medical History Ongoing Abdominal pain, LLQ (left lower quadrant) Abnormal CT scan, pelvis Atrial fibrillation BMI 26.0-26.9,adult COVID-19 Diverticulosis Hiatal hernia with GERD History of atrial fibrillation HTN (hypertension) Loose stools Osteoarthritis Historical No qualifying data Procedure/Surgical History Colonoscopy (01/27/2022), Arthroplasty of knee, Arthroplasty of knee, Cholecystectomy, Meniscal repair, Tonsillectomy and adenoidectomy, Vaginal total hysterectomy. Medications magnesium oxide 400 mg Tab, 400 mg= 1 tab(s), Oral, Daily Dewey-3 1000 mg oral capsule, 2000 mg= 2 cap(s), Oral, Daily omeprazole 40 mg Cap-DR, 40 mg= 1 cap(s), Oral, Daily, 1 refills valacyclovir 1 g Tab, 1 gm= 1 tab(s), Oral, BID valsartan 160 mg Tab, 160 mg= 1 tab(s), Oral, Daily Allergies Influenza Virus Vaccine (Hives) sulfa drugs (Hives) Social History Alcohol - Low Risk, 09/02/2022 Current, Beer, 1-2 times per month, 2 drinks/episode average. Household alcohol concerns: No., 09/02/2022 Substance Abuse - Denies Substance Abuse, 12/30/2021 Tobacco Former smoker, quit more than 30 days ago Tobacco Use:. Never Smokeless Tobacco Use:. Cigarettes, 0.5 per day. Started age 19.0 Years. Stopped age 46 Years. Household tobacco concerns: No., 11/15/2022 Family History Acute myocardial infarction: Father and Sister. Diabetes mellitus type 2: Father and Sister. Heart failure: Father. Parkinson disease: Mother. Primary malignant neoplasm of bladder: Father. Primary malignant neoplasm of female breast: Sister. Immunizations Vaccine Date Status Comments SARS-CoV-2 (COVID-19) mRNAMUL.[id number] 03/10/2022 Recorded 2022-07-27: TPV65 pneumococcal 13-valent vaccine 02/01/2022 Recorded influenza virus vaccine, inactivated - Not Given Patient Refuses SARS-CoV-2 (COVID-19) mRNA-1273 vaccine 07/22/2021 Recorded SARS-CoV-2 (COVID-19) mRNA-1273 vac (more content not included)... Normal [facility] Comment on above: Result Comment: Elec tronically Signed By: Ashley Colvin\vandana\Date and Time Signed: 11/15/22 09:46 EDT Physician Referralon 023 Physician Referral [id number] 1141 [id number]:1 27 Normal [facility] RAD - MRI Reporton 3 RAD - MRI Report [id number]: 127 Normal [facility] CHEMISTRYOrdered By: SYSTEM SYSTEM on 09-02-2022 Cholesterol [Mass/Vol] 240 mg/dL High 120 - 200 mg/dL [facility] Remisol Cholesterol in HDL [Mass/Vol] 60 mg/dL Invalid Interpretation Code [facility] Cholesterol in LDL [Mass/Vol] 151 mg/dL High <=129mg/dL [facility] Cholesterol in VLDL [Mass/Vol] 32 mg/dL Normal 7 - 40 mg/dL [facility] Triglyceride [Mass/Vol] 158 mg/dL High <=149mg/dL [facility] TSH Qn 1.43 m[IU]/L Normal 0.34 - 5.60 mcIU/mL [facility] Remisol CT ABD/PELV W CONon 02-17-20 CT ABD/PELV W CON EXAMINATION: CT ABD/ PELV W CON HISTORY: Left lower quadrant pain , chronic COMPARISON: No relevant comparison available. TECHNIQUE: Axial, Coronal, and Sagittal images were obtained without and/or with IV contrast as indicated by examination type. Dose reduction techniques were achieved by using automated exposure control and/or adjustment of mA and/or kV according to patient size and/or use of iterative reconstruction technique. FINDINGS: LUNG BASES: No visible pulmonary or pleural disease. LIVER: No enlargement, atrophy, suspicious density, or significant focal lesion. BILIARY: Cholecystectomy. PANCREAS: No lesion, fluid collection, or abnormal duct dilatation. SPLEEN: No enlargement or focal lesion. ADRENALS: No mass or enlargement. KIDNEYS: No mass, obstruction, or calcification. BOWEL/MESENTERY: Circumferential wall thickening and moderate-marked diverticulosis of sigmoid colon; no obstruction or mass. Normal appendix. AORTA/VASCULAR: No aneurysm or dissection. RETROPERITONEUM: No mass or adenopathy. LYMPH NODES: No adenopathy. URINARY BLADDER: No visible focal wall thickening, lesion, or calculus. PELVIC ORGANS: No visible mass. Pelvic organs appropriate for patient age. ABDOMINAL WALL: No mass or hernia. BONES: 12 x 12 x 7 mm irregular sclerotic focus within left femoral head. OTHER: Negative. IMPRESSION: 1. Sigmoid diverticulosis and mild circumferential wall thickening, likely sequela of chronic diverticulitis. No definite acute diverticulitis. 2. Nonspecific irregular 12 mm sclerotic focus within left femoral head. Radiographs of the left hip at this time and follow up radiograph in 6 months to document stability are recommended. Electronically authenticated by: KATHLEEN YEAGER Date: 2022-02-16 09:23 Normal [facility] Office Visit (Cardiology)on 02-05-2022 Follow-up visit Diagnoses/Problems Assessed Palpitations (785.1) (R00.2) Hyperlipidemia (272.4) (E78.5) Hypertension (401.9) (I10) Former smoker (V15.82) (Z87.891) Quit in 2002 Overweight with body mass index (BMI) of 26 to 26.9 in adult (278.02,V85.22) (E66.3,Z68.26) Orders Overweight with body mass index (BMI) of 26 to 26.9 in adult Healthy Weight Tips; Status:Complete - Retrospective Authorization; Done: 05Feb2022 Some eating tips that can help you lose weight.; Status:Complete - Retrospective Authorization; Done: 05Feb2022 SocHx: Former smoker Tobacco Use Screening; Status:Complete; Done: 05Feb2022 Patient Instructions Please bring all medicines, vitamins, and herbal supplements with you when you come to the office. Prescriptions will not be filled unless you are compliant with your follow up appointments or have a follow up appointment scheduled as per instruction of your physician. Refills should be requested at the time of your visit. Follow up in 1 year. Chief Complaint LORETO VASQUEZ is being seen for an annual follow-up of. History of Present Illness Patient is here for follow-up continue management for previously evaluation for palpitation with documentation of few premature atrial contraction, hypertension, and mild hyperlipidemia. Since last time I saw her she reports she is feeling well. She described brief episodes of palpitation while on vacation in [place]. This has not reoccurred. During that vacation the patient reports she had also COVID-19. She recovered from that without any sequela. She is doing well and denying any complaint currently. She reports she underwent life-screening tests and or was normal. She reports lab work was done recently at [facility] ASSESSMENT: 1. Previous evaluation for palpitation with documented few premature atrial contractions, completely resolved. She had only 1 brief episode last year no recurrence 2. Hypertension well-controlled 3. Mildly overweight. She gained few pounds however over the last several years she has lost a total of close to 50 pounds 4. Mild hyperlipidemia does not meet criteria for treatment 5. Recent COVID-19 infection while on vacation in [place] resolved without any sequela RECOMMENDATION: 1. I advised the patient to continue present medical therapy 2. I counseled her regarding risk factor modification, exercise and weight loss 3. The patient advised to notify me change in cardiac status or symptoms. 4. We will try to retrieve her recent lab work from [place] and I advised her to drop a copy of her life screening 5. I we will see her back in the office in 1 year in follow-up Surgical History Problems History of Complete colonoscopy Managed By: Dillan Anna MD (General Surgery) History of Gallbladder surgery History of Hysterectomy History of Knee replacement History of Knee surgery History of Tonsillectomy Current Meds Medication NameInstruction Fish Oil 1000 MG Oral CapsuleTAKE 2 CAPSULE Daily Magnesium 400 MG Oral TabletTake 1 tablet daily Multi Vitamin TABSTAKE 1 TABLET DAILY. Valsartan 160 MG Oral TabletTake 1 tablet by mouth daily. Allergies Medication Bactrim TABS Hives;; Recorded By: Chantale Argueta; 02/03/2021 9:43:32 AM Influenza (Split PF) Hives;; Recorded By: Chantale Argueta; 02/03/2021 9:43:32 AM Social History Problems Caffeine use (V49.89) (Z78.9) 1/2 cup decaf 1 cup regualar coffee daily Consumes alcohol (V49.89) (Z78.9) occasional Former smoker (V15.82) (Z87.891) Quit in 2002 No illicit drug use Review of Systems Constitutional: not feeling tired. Cardiovascular: palpitations, but no intermittent leg claudication and as noted in HPI. Respiratory: no cough and no shortness of breath. Gastrointestinal: no change in bowel habits and no blood in stools. Integumentary: no skin rashes. Neurological: no seizures and no frequent falls. All other systems have been reviewed and are negative for complaint. Vitals Vital Signs Recorded: 05Feb2022 08:47AM Heart Rate72, R Radial Dqcdxfch972, RUE, Sitting Bpxmxkpzc46, RUE, Sitting Height5 ft 2 in Egzehm043 lb BMI Halusqcjpk33.7 kg/m2 BSA Calculated1.67 Tobacco Useb) No PHQ-2 #1. Over the last 2 weeks have you felt down, depressed or hopeless? (If yes, answer PHQ-9 below)No PHQ-2 #2. Over the last 2 weeks have you felt little interest or pleasure in doing things? (If yes, answer PHQ-9 below)No Falls Screening (Age 18+)a) No falls within the last year Physical Exam Constitutional: alert and in no acute distress. Neck: neck is supple, symmetric, trachea midline, no masses and no thyromegaly . Pulmonary: no increased work of breathing or signs of respiratory distress and lungs clear to auscultation. Cardiovascular: carotid pulses 2+ bilaterally with no bruit , JVP was normal, no thrills , regular rhythm, normal S1 and S2, no murmurs , pedal pulses 2+ bilaterally and no edema . Abdomen: abdomen non-tender, (more content not included)... Normal [employer] Tobacco Screening.on 022 Adult depression screening assessment No [facility] [employer] DO Work Phone: Fall risk assessment a) No falls within the last year [facility] [employer] DO Work Phone: Tobacco use status [facility] b) No [facility] [employer] DO Work Phone: PROF CHEM 8 (BAS METB)on Anion gap [Moles/Vol] 9.4 mmol/L Normal [facility] Comment on above: Performed By: #### B #### [facility] [address] [place] [address] Dr. Carolina [place] Calcium [Mass/Vol] 9.1 mg/dL Normal 8.5-10.1 [facility] Comment on above: Performed By: #### B MP #### [facility] [address] [place] [address] Dr. Carolina [place] Chloride [Moles/Vol] 104 mmol/L Normal 98-107 [facility] Comment on above: Performed By: #### B MP #### [facility] [address] [place] [address] Dr. Carolina [place] CO2 [Moles/Vol] 28.5 mmol/L Normal 21.0-32.0 [facility] Comment on above: Performed By: #### B MP #### [facility] [address] [place] [address] Dr. Carolina [place] Creatinine [Mass/Vol] 0.70 mg/dL Normal 0.55-1.02 [facility] Comment on above: Performed By: #### B MP #### [facility] [address] [place] [address] Dr. Carolina [place] EGFR-AF NAMIBIAN >60 Normal >=60 [facility] Comment on above: Performed By: #### B MP #### [facility] [address] [place] [address] Dr. Carolina [place] EGFR-NON AF NAMIBIAN >60 Normal >=60 [facility] Comment on above: Performed By: #### B MP #### [facility] [address] [place] [address] Dr. Carolina [place] Glucose [Mass/Vol] 88 mg/dL Normal 74-106 [facility] Comment on above: Performed By: #### B MP #### [facility] [address] [place] [address] Dr. Carolina [place] Potassium [Moles/Vol] 3.9 mmol/L Normal 3.5-5.1 [facility] Comment on above: Performed By: #### B MP #### [facility] [address] [place] [address] Dr. Carolina [place] Sodium [Moles/Vol] 138 mmol/L Normal 136-145 [facility] Comment on above: Performed By: #### B MP #### [facility] [address] [address] [address] Carolina [place] Urea nitrogen [Mass/Vol] 10.0 mg/dL Normal 7.0-18.0 [facility] Comment on above: Performed By: #### B MP #### [facility] [id number] Carolina [place] Urea nitrogen/Creatinine [Mass ratio] 14.3 mg/mg Normal [facility] Comment on above: Performed By: #### B MP #### [facility] [address] [address] [address] Carolina [place] Covid-19 PCR (CVDTB)on 01-03 SARS-CoV-2 (COVID-19) RNA MARTINA+probe Ql (Unsp spec) Not detected Normal NOT DETECTED [facility] Comment on above: Result Comment: This test is not yet approved or cleared by the [place] FDA. When there are no FDA-approved or cleared tests available, and other criteria are met, FDA can make tests available under an emergency access mechanism called an Emergency Use Authorization (EUA). The EUA for this test is supported by the [place] of Health and Human Service's (HHS's) declaration that circumstances exist to justify the emergency use of in vitro diagnostics for the detection and/or diagnosis of the virus that causes COVID-19. This EUA will remain in effect (meaning this test can be used) for the duration of the COVID-19 declaration justifying emergency of IVDs, unless it is terminated or revoked by FDA (after which the test may no longer be used). When diagnostic testing is negative, the possibility of a false negative should be considered in the context of a patient's recent exposures and the presence of clinical signs and symptoms consistent with SARS-CoV-2. Performed By: #### C VDTB #### [facility] [address] [address] [address] Carolina Huynh 09-01-2021 HYUNN Telephone (SNAPCARD) -------- LORETO VASQUEZ ([id number]) 1955 F Date Time Provider Department 09/01/21 MEIR JON During your visit today, we recorded the following information about you: Talia Bland 09/01/2021 11:50 AM Signed Patient called and wanted to know if she could have something called in for pain management until her appointment with a [address] Magistrate which is scheduled for 11/23/21 and she stated she made an appointment with you on 09/16/2021 But she has had a low grade fever for a month that ranges from 99.6 to 99.9 As well as constant pain in her legs, knee and hip that she describes to be an 8 in pain. She has been taking Aleve for the pain but it is not helping relieving the pain. Talia Jon MD 09/02/2021 7:08 AM Signed Never met patient = make sure this is the correct one - check Taliafrankie Negrone 09/02/2021 3:56 PM Signed I called patient to give her the phone number for central scheduling to make sure she was scheduled. Left a voicemail for her to call the office. I did verify her when the scheduling department transferred her over to me. She stated she will be a new patient and that she was scheduled to see you to establish care on 09/16. I did not see her appointment in her appointment desk, wasn't sure if the appointment line had just scheduled her and it was not updated. Allergies As of Date: 09/01/2021 Noted Allergy Reaction BACTRIM (SULFAMETHOXAZOLE-TRIMET H*11/17/2015 5 - Intolerance INFLUENZA VIRUS VACCINES 11/17/2015 14 - Other: See Comments Date Reviewed: 11/09/2017 Reviewed by: Jerzy Granger [facility] - Fully Assessed Reason for Visit: Medication Request [138] Prescriptions as of 09/02/2021 - meloxicam (MOBIC) 15 mg tablet Take 1 tablet by mouth once daily. with food - Amoxicillin 500 mg tablet FOUR TABS ONE HOUR PRIOR TO DENTAL PROCEDURE AND TWO TABS SIX HOURS AFTER THE DENTAL PROCEDURE - Omeprazole Magnesium 20 mg cpDR Take by mouth. - Magnesium Amino Acid Chelate 27 mg tablet Take 500 mg by mouth twice daily. - losartan-hydrochlorothia zide (HYZAAR) 100-25 mg per tablet Take 1 tablet by mouth once daily. Meds Comments as of 03/17/2016: Has some vicodin left from surgery and is taking 1/2 at a time as needed for pain. 03/17/2016 Aislinn Mike CNP Problem List As Of Date 09/01/2021 Noted Resolved Primary osteoarthritis of left knee [M17.12] 11/12/2015 Arthritis of knee, left [M17.12] 11/27/2015 S/P left unicompartmental knee replacement [Z96*02/02/2016 Closed nondisplaced fracture of patella [S82.00*03/17/2016 Post-op pain [G89.18] 04/07/2016 Closed nondisplaced fracture of left patella wi*05/06/2016 Encounter Status:Closed by TALIA BLAND on 09/02/21 Normal [facility] PROF CHEM 8 (BAS METB)on Anion gap [Moles/Vol] 12.3 mmol/L Normal [facility] Comment on above: Performed By: #### B MP #### [facility] [address] [address] [address] Carolina [place] Calcium [Mass/Vol] 9.4 mg/dL Normal 8.4-10.2 [facility] Comment on above: Performed By: #### B MP #### [facility] [address] [address] [address] Carolina [place] Chloride [Moles/Vol] 103 mmol/L Normal 98-107 [facility] Comment on above: Performed By: #### B MP #### [facility] [address] [address] [address] Carolina [place] CO2 [Moles/Vol] 28.8 mmol/L Normal 22.0-30.0 [facility] Comment on above: Performed By: #### B MP #### [facility] [address] [address] [address] Carolina [place] Creatinine [Mass/Vol] 0.95 mg/dL Normal 0.52-1.04 [facility] Comment on above: Performed By: #### B MP #### [facility] [address] [address] [address] Carolina [place] EGFR-AF NAMIBIAN >60 Normal >=60 [facility] Comment on above: Performed By: #### B MP #### [facility] [address] [address] [address] Carolina [place] EGFR-NON AF NAMIBIAN 59 mL/min/1.73m2 Critically low >=60 [facility] Comment on above: Performed By: #### B MP #### [facility] [address] [address] [address] Carolina [place] Glucose [Mass/Vol] 103 mg/dL Normal 74-106 [facility] Comment on above: Performed By: #### B MP #### [facility] [address] [place] [address] Dr. Carolina [place] Potassium [Moles/Vol] 4.1 mmol/L Normal 3.4-5.0 [facility] Comment on above: Performed By: #### B MP #### [facility] [address] [address] [address] Carolina [place] Sodium [Moles/Vol] 140 mmol/L Normal 137-145 [facility] Comment on above: Performed By: #### B MP #### [facility] [address] [address] [address] Carolina [place] Urea nitrogen [Mass/Vol] 14.0 mg/dL Normal 7.0-17.0 [facility] Comment on above: Performed By: #### B MP #### [facility] [address] [place] [address] Dr. Carolina [place] Urea nitrogen/Creatinine [Mass ratio] 14.7 mg/mg Normal [facility] Comment on above: Performed By: #### B MP #### [facility] [address] [place] [address] Dr. Carolina [place] Tobacco Screening.on 021 Tobacco use status [facility] b) No [facility]-Arun Alfaro DO Work Phone: DARCIOVon 11-09-2017 CNOV Office Visit (LOORRM) LORETO IRELAND ([id number]) 1955 FDate Time Provider Department11/09/17 9:15 AM DILLAN OCHOA During your visit today, we recorded the following information about you:Dillan Ochoa II, MD 11/09/2017 6:22 PM Signed11/09/17Left partial lateral SILVIA 12/15/15ORIF left patella fracture 03/18/16The patient states that she sometimes has swelling in her knee on the left ifshe over doesMost recently the patient has lost 32 pounds. And the knee is feeling betterDays she moves the knee from 0-120? without any hesitationReviewed the x-rays with the patient the prosthesis itself is a lateral partialin good general alignment.Subpatellar view shows the screws in the patella 1 may well be slightlyprotruding. The knee is not greatly swollen and she has excellent motion.We'll treat this symptomatically.Patient is having a problem with insurance will see if the give her someassistance with that..Dillan Ochoa II, MDReferring Provider: SELF [200]Allergies As of Date: 11/09/2017 Noted Allergy ReactionBACTRIM (SULFAMETHOXAZOLE-TRIMET H*11/17/2015 5 - IntoleranceINFLUENZA VIRUS VACCINES 11/17/2015 14 - Other: See CommentsDate Reviewed: 11/09/2017Reviewed by: Jerzy Cote Ma - Fully AssessedReason for Visit: Follow Up [171]Primary Visit Diagnosis:S/P left unicompartmental knee replacement [Z96.652]Order(s):XR KNEE POST OP 3V AP/LAT/MERCHANT LT [[id number]] Order #: [id number] FUTURE Amoxicillin 500 mg tabletFOUR TABS ONE HOUR PRIOR TO DENTAL PROCEDURE AND TWO TABS SIX HOURS AFTER THE DENTAL PROCEDUREDisp: 6 tabletRfl: 1Prescriptions as of 11/09/2017 Sig: AMOXICILLIN 500 MG TABLET FOUR TABS ONE HOUR PRIOR TO D* MELOXICAM 15 MG TABLET Take 1 tablet by mouth once d* OMEPRAZOLE MAGNESIUM 20 MG CA* Take by mouth. MAGNESIUM AMINO ACID CHELATE * Take 500 mg by mouth twice da* LOSARTAN 100 MG-HYDROCHLOROTH* Take 1 tablet by mouth once d*Problem List As Of Date 11/09/2017 Noted Resolved Primary osteoarthritis of left knee [M17.12] INVALID FOR* Arthritis of knee, left [M17.12] INVALID FOR* S/P left unicompartmental knee replacement [Z96*INVALID FOR* Closed nondisplaced fracture of patella [S82.00*INVALID FOR* Post-op pain [G89.18] INVALID FOR* Closed nondisplaced fracture of left patella wi*INVALID FOR*Prescriptions ordered this encounter Disp Refills Start End AMOXICILLIN 500 MG TABLET 6 ta* 1 11/09/2017 Sig: FOUR TABS ONE HOUR PRIOR TO DENTAL PROCEDURE AND TWO TABS SIX HOURS AFTER THE DENTAL PROCEDUREMedications Discontinued During This Encounter Amoxicillin 500 mg tablet 6 ta* 0 03/11/2016 11/09/2017 Sig: FOUR TABS ONE HOUR PRIOR TO DENTAL PROCEDURE AND TWO TABS SIX HOURS AFTER THE DENTAL PROCEDURE Disc: Reason for discontinue is not on file. Status:Closed by DILLAN OCHOA II, MD on 11/09/17 Normal [facility] PROGRESSon 11-09-2017 Protein mass conc HNO ID: [id number]: Dillan PhilippeunService: (none)Author Type: PhysicianType: Progress NotesFiled: 11/09/2017 6:22 PMNote Text:11/09/17Left partial lateral SILVIA 12/15/15ORIF left patella fracture 03/18/16The patient states that she sometimes has swelling in her knee on the leftif she over doesMost recently the patient has lost 32 pounds. And the knee is feelingbetterDays she moves the knee from 0-120? without any hesitationReviewed the x-rays with the patient the prosthesis itself is a lateralpartial in good general alignment.Subpatellar view shows the screws in the patella 1 may well be slightlyprotruding. The knee is not greatly swollen and she has excellent motion.We'll treat this symptomatically.Patient is having a problem with insurance will see if the give her someassistance with that..Dillan Ochoa II, MD [facility] CNOVon 08-17-2017 CNOV Office Visit (LOORRM) KAPIL ELLISLORETO ([id number]) 1955 FDate Time Provider Department08/17/17 1:45 PM MELITON HERNANDEZ) ELIZABETH During your visit today, we recorded the following information about you:Meliton Hernandez PA-C 08/17/2017 3:14 PM SignedCall Jennifer in 3 weeks to report how it feels.Mobic once a day with food for 2-3 weeks, then decrease to every other day ifthe swelling is controlled. Then discontinue. If swelling continues, mayconsider taking fluid out and injection.Meliton Hernandez PA-C 09/01/2017 12:25 PM SignedThis document has been created with the use of voice recognition technology. Itmay contain inaccuracies: misspellings, inaccurate syntax or word sense thatescaped review.Chief complaint: Left knee pain and swellingLeft partial lateral SILVIA, 12/15/2015 (1-1/2 years)ORIF left patella fracture 03/18/2016 (1-1/2 years)HISTORY: Loreto is a 61 year old female. She is here following up forswelling in her left knee which began about 2 months ago. She states thatshe's been quite busy this spring going up and down ladders painting andgetting up and down off of a low stool while cleaning out her cupboards andworking in her garden's. She is having gradually increasing swelling in theleft knee. Minimal pain other than the tightness from the swelling. She notesthat she's been biking up to 5 miles at a time without any difficulties.Actually feels quite good afterwards. Pain level is a 5 at most. 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.The patient's past medical history, surgical history, social history, familyhistory, medications and allergies were reviewed with the patient today andare available in the chart for further review.PAST MEDICAL HISTORY:PAST MEDICAL HISTORYDiagnosis Date- Closed fracture of left patella- Former smoker- GERD (gastroesophageal reflux disease)- HTN (hypertension)- Snoring- Status post left partial knee replacementPAST SURGICAL HISTORY:PAST SURGICAL HISTORYProcedure Laterality Date- KNEE SCOPE,DIAGNOSTIC Left 1999 Arthroscopy, knee- REMOVAL GALLBLADDER 2013 Cholecystectomy- REMOVAL OF TONSILS,<13 Y/O Tonsillectomy- S PARTIAL KNEE IMPLANT BIOM Left 12/15/2015- TOTAL ABDOM HYSTERECTOMY 1999 Hysterectomy, TAHFAMILY HISTORY :FAMILY HISTORYProblem Relation Age of Onset- CHF [OTHER] Father- Ischemic Heart Disease SisterSOCIAL HISTORY: Social History Marital status: Spouse name: Years of education: Number of children:Social History Main Topics Smoking status: Former Smoker Packs/day: 0.00 Years: 0.00 Quit date: 12/21/2002 Alcohol use: Yes Comment: social Drug use: NoSexual Activity: Not on fileMEDICATIONS:Current Outpatient Prescriptions on File Prior to Visit:Amoxicillin 500 mg tablet FOUR TABS ONE HOUR PRIOR TO DENTAL PROCEDURE AND TWOTABS SIX HOURS AFTER THE DENTAL PROCEDUREOmeprazole Magnesium 20 mg cpDR Take by mouth.Magnesium Amino Acid Chelate 27 mg tablet Take 500 mg by mouth twice daily.losartan-hydrochlo rothiazide (HYZAAR) 100-25 mg per tablet Take 1 tablet byriuth once daily.No current facility-administered medications on file prior to visit.ALLERGIES:ALLERGIE SAllergen Reactions- Bactrim [Sulfametho* Intolerance- Influenza Virus Vac* Other: See CommentsROS :REVIEW OF SYMPTOMS:Constitutional: patient has been successfully intentionally losing weight andis motivated to continue with weight loss programGastrointestinal: patient denies any current abdominal discomfort and patientnotes history to tolerance of NSAIDsMusculoskeletal: as noted in the HPINeurologic: patient denies any peripheral numbness or radiation of painSOCIAL HISTORY:Tobacco Use: Quit 12/21/2002.EXAMINATION: Examination of the knee demonstrates There is no warmth orredness. Has a 1+ effusion of the knee. No swelling distally. Calf is softand nontender. Homans. Has good range of motion 0-125? which is sometightness at extremes. No instability. Has some tenderness along the medialborder the patella but no real tenderness about the screws. No tendernessabout the prosthesis laterally. No medial joint line tenderness. NoPatellofemoral crepitation/Good patellar tracking. Stable to varus and valgusstresses. Calf is soft and nontender. Negative Homans. Neurovascularly isintact. Still has some quadriceps deconditioning on the left compared to theright. Arises from a chair without difficulty and is ambulating with a slightantalgic gait on start up and then relatively normal gait thereafter.RADIOGRAPHS: X-rays of the left needed done today were personally interpretedand reviewed with the patient and show lateral partial knee replacementcomponents in satisfactory position with good interfaces noted. No evidence ofwear or loosening. Good maintenance of joint space medially. Relatively levelpatellar tracking noted on skyline view. Stable position of the 2 cannulatedscrews within the patella. Healing noted of the patella fracture. No otherosseous abnormalities.IMPRESSION :Encounter Diagnosis ICD-10-CM1. S/P left unicompartmental knee replacement Z96.652 XR KNEE GENERAL 4V APBOTH/PA BOTH/LAT/MERC LT2. Closed nondisplaced fracture of left patella with routine healing,unspecified fracture morphology, subsequent encounter S82.002D3. Effusion, left knee M25.462PLAN: Impression is patellofemoral irritation after increased activities withsome deconditioning still of the quadriceps on the left knee. We discussed theimportance of getting back to some strengthening exercises and these werereviewed with her today. May continue biking as this does not irritate theknee. We discussed oral NSAIDs and she would like to try this. Prescriptionfor meloxicam was sent to her pharmacy after discussion of its use andprecautions. We discussed use of ice after activity. She will give this a fewweeks and see if this won't settle down with conservative treatment. Howeverif her symptoms persist, may consider aspiration and injection of the knee inthe future if necessary. We'll follow up when necessary or for her annualrecheck.ARLENE Hammond-CReferring Provider: SELF [200]Allergies As of Date: 08/17/2017 Noted Allergy ReactionBACTRIM (SULFAMETHOXAZOLE-TRIMET H*11/17/2015 5 - IntoleranceINFLUENZA VIRUS VACCINES 11/17/2015 14 - Other: See CommentsDate Reviewed: 08/17/2017Reviewed by: Meliton (Arlene) Mary - Fully AssessedReason for Visit: Knee Swelling [1211] Cmt: LeftPrimary Visit Diagnosis:S/P left unicompartmental knee replacement [Z96.652] Other Visit Diagnoses:Closed nondisplaced fracture of left patella with routine healing, unspecified fracture morphology, subsequent encounter [S82.002D] Effusion, left knee [M25.462]Order(s):XR KNEE GENERAL 4V AP BOTH/PA BOTH/LAT/MERC LT [[id number]] Order #: [id number]. #:[id number] FUTURE meloxicam (MOBIC) 15 mg tabletTake 1 tablet by mouth once daily. with foodDisp: 30 tabletRfl: 1Prescriptions as of 08/17/2017 Sig: AMOXICILLIN 500 MG TABLET FOUR TABS ONE HOUR PRIOR TO D* OMEPRAZOLE MAGNESIUM 20 MG CA* Take by mouth. MAGNESIUM AMINO ACID CHELATE * Take 500 mg by mouth twice da* LOSARTAN 100 MG-HYDROCHLOROTH* Take 1 tablet by mouth once d* MELOXICAM 15 MG TABLET Take 1 tablet by mouth once d*Problem List As Of Date 08/17/2017 Noted Resolved Primary osteoarthritis of left knee [M17.12] INVALID FOR* Arthritis of knee, left [M17.12] INVALID FOR* S/P left unicompartmental knee replacement [Z96*INVALID FOR* Closed nondisplaced fracture of patella [S82.00*INVALID FOR* Post-op pain [G89.18] INVALID FOR* Closed nondisplaced fracture of left patella wi*INVALID FOR* Other instructions from your clinician: Call Jennifer in 3 weeks to report how it feels. Mobic once a day with food for 2-3 weeks, then decrease to every other day if the swelling is controlled. Then discontinue. If swelling continues, may consider taking fluid out and injection.Prescriptions ordered this encounter Disp Refills Start End MELOXICAM 15 MG TABLET 30 t* 1 08/17/2017 Route: ORAL Sig: Take 1 tablet by mouth once daily. with foodMedications Discontinued During This Encounter HYDROcodone-acetaminophe n (NORCO) 5-* 50 t* 0 03/18/2016 08/17/2017 Class: Print RX Sig: take 1-2 tablets every 4-6 hours as needed for pain Indications: PAIN Disc: Course of therapy completed scopolamine (TRANSDERM-SCOP) 1.5 mg * 1 Pa* 0 12/16/2015 08/17/2017 Class: Med Update Sig: remove from behind ear on Tuesday amWash hands!!! Indications: PREVENTION OF POST-OPERATIVE NAUSEA AND VOMITING Disc: Course of therapy completedDisposition: Return if symptoms worsen or fail to improve.Follow-up and Disposition History RecordedEncounter Number: [id number] Status:Closed by MELITON HERNANDEZ PA-C on 09/01/17 [facility] PROGRESSon 08-17-2017 Protein mass conc HNO ID: [id number]: Meliton Hernandez (Pa)Service: (none)Author Type: Physician AssistantType: Progress NotesFiled: 09/01/2017 12:25 PMNote Text:This document has been created with the use of voice recognitiontechnology. It may contain inaccuracies: misspellings, inaccurate syntaxor word sense that escaped review.Chief complaint: Left knee pain and swellingLeft partial lateral SILVIA, 12/15/2015 (1-1/2 years)ORIF left patella fracture 03/18/2016 (1-1/2 years)HISTORY: Loreto is a 61 year old female. She is here following up forswelling in her left knee which began about 2 months ago. She states thatshe's been quite busy this spring going up and down ladders painting andgetting up and down off of a low stool while cleaning out her cupboardsand working in her garden's. She is having gradually increasing swellingin the left knee. Minimal pain other than the tightness from theswelling. She notes that she's been biking up to 5 miles at a timewithout any difficulties. Actually feels quite good afterwards. Painlevel is a 5 at most. Of note is that she has lost 30 pounds sincesurgery and has been working at this gradually.The patient's past medical history, surgical history, social history,family history, medications and allergies were reviewed with thepatient today and are available in the chart for further review.PAST MEDICAL HISTORY:PAST MEDICAL HISTORYDiagnosis Date- Closed fracture of left patella- Former smoker- GERD (gastroesophageal reflux disease)- HTN (hypertension)- Snoring- Status post left partial knee replacementPAST SURGICAL HISTORY:PAST SURGICAL HISTORYProcedure Laterality Date- KNEE SCOPE,DIAGNOSTIC Left 1999 Arthroscopy, knee- REMOVAL GALLBLADDER 2013 Cholecystectomy- REMOVAL OF TONSILS,<13 Y/O Tonsillectomy- S PARTIAL KNEE IMPLANT BIOM Left 12/15/2015- TOTAL ABDOM HYSTERECTOMY 1999 Hysterectomy, TAHFAMILY HISTORY :FAMILY HISTORYProblem Relation Age of Onset- CHF [OTHER] Father- Ischemic Heart Disease SisterSOCIAL HISTORY: Social History Marital status: Spouse name: Years of education: Number of children:Social History Main Topics Smoking status: Former Smoker Packs/day: 0.00 Years: 0.00 Quit date: 12/21/2002 Alcohol use: Yes Comment: social Drug use: NoSexual Activity: Not on fileMEDICATIONS:Current Outpatient Prescriptions on File Prior to Visit:Amoxicillin 500 mg tablet FOUR TABS ONE HOUR PRIOR TO DENTAL PROCEDURE ANDTWO TABS SIX HOURS AFTER THE DENTAL PROCEDUREOmeprazole Magnesium 20 mg cpDR Take by mouth.Magnesium Amino Acid Chelate 27 mg tablet Take 500 mg by mouth twicedaily.losartan-hydr ochlorothiazide (HYZAAR) 100-25 mg per tablet Take 1 tabletby mouth once daily.No current facility-administered medications on file prior to visit.ALLERGIES:ALLERGIE SAllergen Reactions- Bactrim [Sulfametho* Intolerance- Influenza Virus Vac* Other: See CommentsROS :REVIEW OF SYMPTOMS:Constitutional: patient has been successfully intentionally losing weightand is motivated to continue with weight loss programGastrointestinal: patient denies any current abdominal discomfort andpatient notes history to tolerance of NSAIDsMusculoskeletal: as noted in the HPINeurologic: patient denies any peripheral numbness or radiation of painSOCIAL HISTORY:Tobacco Use: Quit 12/21/2002.EXAMINATION: Examination of the knee demonstrates There is no warmth orredness. Has a 1+ effusion of the knee. No swelling distally. Calf issoft and nontender. Homans. Has good range of motion 0-125? which issome tightness at extremes. No instability. Has some tenderness alongthe medial border the patella but no real tenderness about the screws. Notenderness about the prosthesis laterally. No medial joint linetenderness. No Patellofemoral crepitation/Good patellar tracking. Stableto varus and valgus stresses. Calf is soft and nontender. NegativeHomans. Neurovascularly is intact. Still has some quadricepsdeconditioning on the left compared to the right. Arises from a chairwithout difficulty and is ambulating with a slight antalgic gait on startup and then relatively normal gait thereafter.RADIOGRAPHS: X-rays of the left needed done today were personallyinterpreted and reviewed with the patient and show lateral partial kneereplacement components in satisfactory position with good interfacesnoted. No evidence of wear or loosening. Good maintenance of joint spacemedially. Relatively level patellar tracking noted on skyline view.Stable position of the 2 cannulated screws within the patella. Healingnoted of the patella fracture. No other osseous abnormalities.IMPRESSION :Encounter Diagnosis ICD-10-CM1. S/P left unicompartmental knee replacement Z96.652 XR KNEE GENERAL 4VAP BOTH/PA BOTH/LAT/MERC LT2. Closed nondisplaced fracture of left patella with routine healing,unspecified fracture morphology, subsequent encounter S82.002D3. Effusion, left knee M25.462PLAN: Impression is patellofemoral irritation after increased activitieswith some deconditioning still of the quadriceps on the left knee. Wediscussed the importance of getting back to some strengthening exercisesand these were reviewed with her today. May continue biking as this doesnot irritate the knee. We discussed oral NSAIDs and she would like to trythis. Prescription for meloxicam was sent to her pharmacy afterdiscussion of its use and precautions. We discussed use of ice afteractivity. She will give this a few weeks and see if this won't settledown with conservative treatment. However if her symptoms persist, mayconsider aspiration and injection of the knee in the future if necessary.We'll follow up when necessary or for her annual recheck.Meliton Hernandez PA-C [facility] Protein mass conc HNO ID: [id number]: Tereza Santana (Rt) OneidaSerjennifere: (none)Author Type: TechnicianType: Progress NotesFiled: 08/17/2017 2:27 PMNote Text: Radiology Service Progress NotePATIENT NAME: Loreto VasquezMRN: [id number] OF SERVICE: August 17, 2017TIME: 2:27 PMPATIENT IDENTITY VERIFICATION COMPLETED USING TWO (2) METHODS: Patientconfirmed name verbally and ID band matches..PATIENT GENDER DATA: Female. status: : NoBreastfeeding status: NO.PATIENT RELEVANT IMPLANT DATA REVIEWED: Not ApplicableRADIOLOGY DEPARTMENT: General X-ray: Exam(s) Completed: Lower ExtremityX-Ray(s): Knee, AP / Lat / Merchant Left:PERIPHERAL IV DATA: Not applicableSIGNED BY: Tereza Mohamud, RTMay 2017 2:27 PM [facility] XR KNEE 3V AP/LAT/MERCHANT L Ton 08-17-2017 XR KNEE 3V AP/LAT/MERCHANT LT * * *Final Report* * *DATE OF EXAM: Aug 17 2017 2:27PM LZX 5208 - XR KNEE 3V AP/LAT/MERCHANT LT / REASON: Presence of left artificial knee joint * * * * Physician Interpretation * * * * Examination: Left kneeHistory: left knee pain, replacement check Presence of left artificial knee jointTechnique: XR KNEE 3V AP/LAT/MERCHANT LT --LEFT KNEE: Five views including AP standing and merchant views of both knees (2 views of each knee) and an additional lateral view of the left kneeComparison: 03/23/2017FINDING/ RESULT: On the LEFT, the lateral unicompartmental arthroplasty appears unchanged in position compared to prior. No signs of loosening. A healed patellar fracture with 2 crossing lag screws appears unchanged. There is a moderate joint effusion, greater than prior.Images of the right knee show no abnormality.IMPRESSION: Left knee with lateral unicompartmental arthroplasty and moderate joint effusion.Transcriptionis t: PSCB Transcribe Date/Time: Aug 17 2017 2:34PDictated by : NIMA CARTY MDThicarlo examination was interpreted and the report reviewed and electronically signed by: NIMA CARTY MD on Aug 17 2017 2:36PM [id number] N [facility] CNOVon 03-23-2017 CNOV Office Visit (LOORRM) LORETO IRELAND ([id number]) 1955 FDate Time Provider Obafvufrzo49/20/17 9:15 AM MELITON HERNANDEZ) LOORRM During your visit today, we recorded the following information about you:Referring Provider: SELF [200]Allergies As of Date: 03/23/2017 Noted Allergy ReactionBACTRIM (SULFAMETHOXAZOLE-TRIMET H*11/17/2015 5 - IntoleranceINFLUENZA VIRUS VACCINES 11/17/2015 14 - Other: See CommentsDate Reviewed: 05/05/2016Reviewed by: Jennifer Pabon - Fully AssessedPrimary Visit Diagnosis:S/P left unicompartmental knee replacement [Z96.652] Other Visit Diagnosis:Closed nondisplaced fracture of left patella with routine healing, unspecified fracture morphology, subsequent encounter [S82.002D]Order(s):XR KNEE POST OP 3V AP/LAT/ LT [[id number]] Order #: [id number] FUTUREPrescriptions as of 03/23/2017 Sig: HYDROCODONE 5 MG-ACETAMINOPHE* take 1-2 tablets every 4-6 ho* AMOXICILLIN 500 MG TABLET FOUR TABS ONE HOUR PRIOR TO D* SCOPOLAMINE 1 MG OVER 3 DAYS * remove from behind ear on Tue* OMEPRAZOLE MAGNESIUM 20 MG CA* Take by mouth. MAGNESIUM AMINO ACID CHELATE * Take 500 mg by mouth twice da* LOSARTAN 100 MG-HYDROCHLOROTH* Take 1 tablet by mouth once d*Problem List As Of Date 03/23/2017 Noted Resolved Primary osteoarthritis of left knee [M17.12] INVALID FOR* Arthritis of knee, left [M17.12] INVALID FOR* S/P left unicompartmental knee replacement [Z96*INVALID FOR* Closed nondisplaced fracture of patella [S82.00*INVALID FOR* Post-op pain [G89.18] INVALID FOR* Closed nondisplaced fracture of left patella wi*INVALID FOR* Status:Closed by MELITON HERNANDEZ PA-C on 03/24/17 [facility] PROGRESSon 03-23-2017 Protein mass conc HNO ID: [id number]: Meliton Hernandez (Pa)Service: Orthopaedic SurgeryAuthor Type: Physician AssistantType: Progress NotesFiled: 03/26/2017 9:02 AMNote Text: [facility] [address] [place] [address] CLINIC NOTE Department of Orthopaedics - RELL DennisCNAME: LORETO VASQUEZ [facility]ITALHOMER NO.: [id number] OF SERVICE: 03/23/2017WHAT: Recheck of left knee.Left partial lateral SILVIA, December 15, 2015 (1+ year).ORIF, left patella fracture, March 18, 2016 (1 year).HISTORY: She is doing very well. Is having no real pain complaints. Hailee everything except kneel. Is happy with her progress. Pain level is 0.PHYSICAL EXAMINATION: On physical exam of the left knee today, the woundis well healed with no sign of infection. Has no swelling about the knee.No swelling distally. Calf is soft and nontender. Negative Homans. Hasexcellent range of motion, 0-140 degrees easily without irritability. Noinstability. Neurovascularly is intact. Has absolutely no tendernessabout the knee. The screw heads are palpable at the superior aspect ofthe patella, but are not palpable inferiorly. Still has some quadricepsdeconditioning on the left compared to a fairly well-conditioned rightleg. Arises from a chair without difficulty and is ambulating with anormal gait.X-RAYS: X-rays series of the knee today show left lateral SILVIA componentin satisfactory position with good interfaces noted. No evidence of wearor loosening. Good maintenance of joint space medially. Level patellartracking on skyline view. Stable position of the 2 screws within thepatella. Status post ORIF of the patella fracture. Good general alignmentof the patella.PLAN: Overall, she is doing very well. Still needs to work onstrengthening. The screws are not palpable distally. So, she can trainthe knee to tolerate kneeling. She should be able to do so withoutinterference from the screws. Strength is her biggest problem. Needs tocontinue to work at this. We discussed limitations such as no running orjumping and limited kneeling as well as antibiotic prophylaxis. Follow upin November 2017 for annual recheck of her left knee.Dictated By: Nick Hammond Dictated: 03/24/2017Date Typed: [facility] 03/24/2017JOB# [id number] [facility] Protein mass conc HNO ID: [id number]: Alma Ingram (Rt) Natalya Jackson: (none)Author Type: TechnicianType: Progress NotesFiled: 03/23/2017 9:08 AMNote Text: Radiology Service Progress NotePATIENT NAME: Loreto VasquezMRN: [id number] OF SERVICE: March 23, 2017TIME: 9:07 AMPATIENT IDENTITY VERIFICATION COMPLETED USING TWO (2) METHODS: Patientconfirmed name verbally and Date of .PATIENT GENDER DATA: Female. status: : NoBreastfeeding status: N/APATIENT RELEVANT IMPLANT DATA REVIEWED: Not ApplicableRADIOLOGY DEPARTMENT: General X-ray: Exam(s) Completed: Lower ExtremityX-Ray(s): Knee, AP / Lat / Merchant Left and Wt. Bearing:PERIPHERAL IV DATA: Not applicableSIGNED BY: Bassem Braswell 2016 9:07 AM [facility] XR KNEE 3V AP/LAT/MERCHANT L Ton 03-23-2017 XR KNEE 3V AP/LAT/MERCHANT LT * * *Final Report* * *DATE OF EXAM: Mar 23 2017 9:08AM LZX 5208 - XR KNEE 3V AP/LAT/MERCHANT LT / REASON: Presence of left artificial knee joint * * * * Physician Interpretation * * * * HISTORY: Presence of left artificial knee joint . left knee annual evalTECHNIQUE: XR KNEE 3V AP/LAT/MERCHANT LT Laterality: LEFT Number of different views (projections): 3COMPARISON: 12/22/2016RESULT:No significant interval change. Status post left lateral compartment knee arthroplasty and patellar fracture fixation with 2 screws. Hardware in normal position without evidence of failure or loosening. There is evidence of continued bony healing across the fracture. No other abnormality. No other significant abnormality. ---------IMPRESSION:NO SIGNIFICANT CHANGE WITH HEALING PATELLAR FRACTURE.Transcriptionis t: ABIGAIL Transcribe Date/Time: Mar 23 2017 9:23ADictated by : ARVIN OJEDA MDThicarlo examination was interpreted and the report reviewed and electronically signed by: ARVIN OJEDA MD on Mar 23 2017 9:24AM [id number] N [facility] CNOVon 12-22-2016 CNOV Office Visit (LOORRM) LORETO IRELAND ([id number]) 1955 FDate Time Provider Department12/22/16 9:15 AM MELITON HERNANDEZ) LOORRM During your visit today, we recorded the following information about you:Referring Provider: SELF [200]Allergies As of Date: 12/22/2016 Noted Allergy ReactionBACTRIM (SULFAMETHOXAZOLE-TRIMET H*11/17/2015 5 - IntoleranceINFLUENZA VIRUS VACCINES 11/17/2015 14 - Other: See CommentsDate Reviewed: 05/05/2016Reviewed by: Jennifer Pabon - Fully AssessedPrimary Visit Diagnosis:S/P left unicompartmental knee replacement [Z96.652]Order(s):XR KNEE POST OP 3V AP/LAT/ LT [[id number]] Order #: [id number] FUTUREPrescriptions as of 12/22/2016 Sig: HYDROCODONE 5 MG-ACETAMINOPHE* take 1-2 tablets every 4-6 ho* AMOXICILLIN 500 MG TABLET FOUR TABS ONE HOUR PRIOR TO D* SCOPOLAMINE 1 MG OVER 3 DAYS * remove from behind ear on Tue* OMEPRAZOLE MAGNESIUM 20 MG CA* Take by mouth. MAGNESIUM AMINO ACID CHELATE * Take 500 mg by mouth twice da* LOSARTAN 100 MG-HYDROCHLOROTH* Take 1 tablet by mouth once d*Problem List As Of Date 12/22/2016 Noted Resolved Primary osteoarthritis of left knee [M17.12] INVALID FOR* Arthritis of knee, left [M17.12] INVALID FOR* S/P left unicompartmental knee replacement [Z96*INVALID FOR* Closed nondisplaced fracture of patella [S82.00*INVALID FOR* Post-op pain [G89.18] INVALID FOR* Closed nondisplaced fracture of left patella wi*INVALID FOR* Status:Closed by MELITON HERNANDEZ PA-C on 12/22/16 [facility] PROGRESSon 12-22-2016 Protein mass conc HNO ID: [id number]: Meliton Hernandez (Pa)Service: Orthopaedic SurgeryAuthor Type: Physician AssistantType: Progress NotesFiled: 12/29/2016 4:26 PMNote Text: [facility] [address] [place], [place] [address] CLINIC NOTE Department of Orthopaedics - RELL DennisCNAME: LORETO VASQUEZ [facility] NO.: [id number] OF SERVICE: 12/22/2016WHAT: Recheck of left knee.Left partial lateral SILVIA, 12/15/2015 (1 year).ORIF, left patella fracture, 03/18/2016 (9 months).HISTORY: She is doing very well. Is back to doing everything that shewants to without difficulty. Gets some achiness across the anterioraspect of her knee at the patella but is having no symptoms referable tothe partial knee replacement. Pain level is a 1 at most.PHYSICAL EXAMINATION: On physical exam of the left knee today, there isno warmth or redness about the knee. No swelling. No tenderness. Noinstability. Neurovascularly is intact. Excellent range of motion, 0-135degrees easily without irritability. Arises from a chair withoutdifficulty and is ambulating with a normal brisk gait. Still hasquadriceps deconditioning on the left compared to the right.X-RAYS: X-rays of the knee today show partial lateral SILVIA components insatisfactory position with good interfaces noted. No evidence of wear orloosening. Good maintenance of joint space medially. Two cannulatedscrews in stable position within the patella status post ORIF of patellafracture. Advanced healing at the fracture site. Level patellar trackingon skyline view.PLAN: She is doing well. Will continue with strengthening exercises tohelp address the deconditioning in the left leg. We discussed limitationssuch as no running, jumping, and limited kneeling as well as antibioticprophylaxis. She is doing quite well. For now, the cannulated screws arenot bothering her. Will follow up in March for annual recheck.Dictated By: Nick Hammond Dictated: 12/23/2016Date Typed: [facility] 12/23/2016[facility]# [id number] [facility] Protein mass conc HNO ID: [id number]: Alma Ingram () Natalya Jackson: (none)Author Type: TechnicianType: Progress NotesFiled: 12/22/2016 9:11 AMNote Text: Radiology Service Progress NotePATIENT NAME: Loreto VasquezMRN: [id number] OF SERVICE: December 22, 2016TIME: 9:11 AMPATIENT IDENTITY VERIFICATION COMPLETED USING TWO (2) METHODS: Patientconfirmed name verbally and Date of .PATIENT GENDER DATA: Female. status: : NoBreastfeeding status: NO.PATIENT RELEVANT IMPLANT DATA REVIEWED: Not ApplicableRADIOLOGY DEPARTMENT: General X-ray: Exam(s) Completed: Lower ExtremityX-Ray(s): Knee, AP / Lat / Merchant Left and Wt. Bearing:PERIPHERAL IV DATA: Not applicableSIGNED BY: ron thrasher RTSeptember 2016 9:11 AM [facility] XR KNEE 3V AP/LAT/MERCHANT L Ton 12-22-2016 XR KNEE 3V AP/LAT/MERCHANT LT * * *Final Report* * *DATE OF EXAM: Dec 22 2016 9:12AM LZX 5208 - XR KNEE 3V AP/LAT/MERCHANT LT / REASON: Presence of left artificial knee joint * * * * Physician Interpretation * * * * EXAMINATION: XR KNEE 3V AP/LAT/MERCHANT LTHISTORY: follow up left knee Presence of left artificial knee joint .TECHNIQUE: XR KNEE 3V AP/LAT/MERCHANT LT Laterality: LEFT Number of different views (projections): 3 M: XB_1COMPARISON: 06/16/2016RESULT:There has been no significant interval change. Again seen is postoperative changes of lateral compartment arthroplasty and patellar fracture fixation. Medial and patellofemoral joints are maintained. Small joint effusion.No other significant abnormality.IMPRESSION:S table post operative examination.Transcriptio nist: PSCB Transcribe Date/Time: Dec 22 2016 10:40ADictated by : JULIET OLSON MDThis examination was interpreted and the report reviewed and electronically signed by: JULIET OLSON MD on Dec 22 2016 10:41AM [id number] N [facility] Vital Signs Date Time Vital Sign Value Performing Clinician Facility 06-14-2023 10:040 Body height 157.5 cm Estela CRUZ Work Phone: [facility] 06-14-2023 10:06040 Body mass index (BMI) [Ratio] 27.98 kg/m2 Estela CRUZ Work Phone: [facility] 06-14-2023 10:06040 Body weight 69.4 kg Estela CRUZ Work Phone: [facility] 06-14-2023 10:06040 Diastolic blood pressure 84 mm[Hg] Estela CRUZ Work Phone: [facility] 06-14-2023 10:06-0400 Heart rate 65 /min Estela Robertson APRN-PHARMACY SERVICES DIRECTOR Work Phone: [facility] 06-14-2023 10:06-0400 Respiratory rate 18 /min Estela Robertson APRN-PHARMACY SERVICES DIRECTOR Work Phone: [facility] 06-14-2023 10:06-0400 Systolic blood pressure 166 mm[Hg] Estela Robertson APRN-PHARMACY SERVICES DIRECTOR Work Phone: [facility] 02-11-2023 08:52-0500 Diastolic blood pressure 87 mm[Hg] Jose Francisco Zavala MD Work Phone: [facility] 02-11-2023 08:52-0500 Systolic blood pressure 132 mm[Hg] Jose Francisco Zavala MD Work Phone: [facility] 02-11-2023 08:34-0500 Body height 157.5 cm Jose Francisco Zavala MD Work Phone: [facility] 02-11-2023 08:34-0500 Body mass index (BMI) [Ratio] 27.8 kg/m2 Jose Francisco Zavala MD Work Phone: [facility] 02-11-2023 08:34-0500 Body weight 68.95 kg Jose Francisco Zavala MD Work Phone: [facility] 02-11-2023 08:34-0500 Heart rate 78 /min Jose Francisco Zavala MD Work Phone: [facility] 02-05-2022 08:47-0400 Body height 157.48 cm Cuauhtemoc Villela Work Phone: [facility] [address] DO Work Phone: 02-05-2022 08:47-0400 Body mass index (BMI) [Ratio] 26.7 kg/m2 Cuauhtemoc Ortizight Work Phone: [facility] [address] DO Work Phone: 02-05-2022 08:47-0400 Body surface area Derived from formula 1.67 m2 Cu[place]emoc [place]la Work Phone: [facility] [address] DO Work Phone: 02-05-2022 08:47-0400 Body weight 66.23 kg Cuauhtemoc V[place]la Work Phone: [facility] [address] DO Work Phone: 02-05-2022 08:47-0400 Diastolic blood pressure 84 mm[Hg] Cuau[place]emoc V[place]la Work Phone: [facility] [address] DO Work Phone: 02-05-2022 08:47-0400 Heart rate 72 /min Cuauhtemoc V[place]la Work Phone: [facility] [address] DO Work Phone: 02-05-2022 08:47-0400 Systolic blood pressure 134 mm[Hg] Cuau[place]emoc V[place]la Work Phone: [facility] [address] DO Work Phone: 02-06-2021 08:33-0400 Body height 157.48 cm Cu[place]emoc V[place]la Work Phone: [facility] [address] DO Work Phone: 02-06-2021 08:33-0400 Body mass index (BMI) [Ratio] 25.79 kg/m2 Cuauhtemoc Mignon Villela Work Phone: [facility] 250 DO Work Phone: 02-06-2021 08:33-0400 Body surface area Derived from formula 1.65 m2 Cuauhtemoc Mignon Villela Work Phone: [facility] 250 DO Work Phone: 02-06-2021 08:33-0400 Body weight 63.96 kg Cuauhtemoc Villela Work Phone: [facility] 250 DO Work Phone: 02-06-2021 08:33-0400 Diastolic blood pressure 92 mm[Hg] Cuauhtemoc Villela Work Phone: [facility] 250 DO Work Phone: 02-06-2021 08:33-0400 Heart rate 66 /min Cuauhtemoc Villela Work Phone: [facility] 250 DO Work Phone: 02-06-2021 08:33-0400 Systolic blood pressure 144 mm[Hg] Cuauhtemoc Villela Work Phone: [facility] 250 DO Work Phone: Encounters Encounter Date Encounter Type Care Provider Facility Start: 10-03-2023 ambulatory GARMENT SEWER HAND Ashley L Clemencia Facil ity:[facility] [place] Start: 09-12-2023 End: 09-12-2023 ambulatory GARMENT SEWER HAND Ashley L Clemencia Facility:[facility] Rad[facility] Start: 09-06-2023 End: 09-06-2023 Lab Drop off Ashley L Clemencia [facility] Start: 09-06-2023 End: 09-06-2023 ambulatory Ashley L Clemencia Facility:[facility] Start: 08-02-2023 End: 08-03-[address] [facility] Start: 08-02-2023 End: 08-02-2023 Office outpatient visit 25 minutes Feliz Esther Tierney DO Work Phone: [facility] Comment on above: Acquired trigger fin nicola (Primary Dx); Carpal tunnel syndrome of right wrist; Cubital tunnel syndrome on right Start: 07-04-2023 End: 07-04-2023 ambulatory GARMENT SEWER HAND Ashley L Clemencia Facility:[facility] [place] Start: 06-28-2023 End: 06-28-2023 ambulatory GARMENT SEWER HAND Ashley Vaughan Facility:[facility] Start: 06-15-2023 Orders Only [facility] Comment on above: At high risk for stevenson ast cancer (Primary Dx); Encounter for screening mammogram for breast cancer; Dense breast Start: 06-14-2023 End: 06-14-2023 ambulatory ESTELA L [facility] Start: 06-14-2023 End: 06-14-2023 Office outpatient visit 15 minutes Estela Robertson WOVEN [employer]EL DESIGNER-PHARMACY SERVICES DIRECTOR Work Phone: [facility] Comment on above: At high risk for stevenson ast cancer (Primary Dx); Dense breast Start: 05-12-2023 End: 05-13-2023 ambulatory [facility] Start: 05-03-2023 End: 05-04-[address] [facility] Start: 05-03-2023 End: 05-03-2023 Office outpatient visit 25 minutes Feliz Tierney DO Work Phone: [facility] Comment on above: Cubital tunnel syndr ome on right (Primary Dx); Carpal tunnel syndrome of right wrist; Acquired trigger finger Start: 03-22-2023 End: 03-23-2023 ambulatory FELIZ Santana [facility] Start: 03-22-2023 End: 03-22-2023 Postop follow up visit related to original px Feliz Tierney DO Work Phone: [facility] Comment on above: Cubital tunnel syndr ome on right Start: 03-09-2023 End: 03-09-2023 ambulatory [facility] Start: 02-22-2023 End: 02-23-2023 ambulatory FELIZ Santana [facility] Start: 02-22-2023 End: 02-22-2023 Office outpatient visit 25 minutes Feliz Tierney DO Work Phone: [facility] Comment on above: Carpal tunnel syndro me of right wrist (Primary Dx) Start: 02-15-2023 End: 02-16-2023 [facility] Start: 02-15-2023 End: 02-15-2023 Subsequent hospital visit by physician Rhoda Fernandez [facility] Comment on above: Lesion of ulnar nerv e, right upper limb; Lesion of ulnar nerve, unspecified upper limb Start: 02-11-2023 End: 02-11-2023 [facility] Start: 02-11-2023 End: 02-11-2023 Office outpatient visit 15 minutes Jose Francisco Zavala MD Work Phone: [facility] Comment on above: Palpitations (Primar y Dx); Essential hypertension; Mixed hyperlipidemia; BMI 27.0-27.9,adult Start: 12-21-2022 Rx Renewal Cuauhtemoc Villela Work Phone: [address] Work Phone: Start: 12-16-2022 Patient encounter procedure Cuauhtemoc Villela Work Phone: [facility] Work Phone: Start: 12-16-[address] Cuauhtemoc Villela F acility:[id number] Start: 11-15-2022 End: 11-15-2022 ambulatory GARMENT SEWER HAND Ashley Daisy Clemencia Facility:[facility] Radha Start: 09-02-2022 End: 09-02-2022 Lab Drop off Ashley L Clemencia [facility] Start: 09-02-2022 End: 09-02-2022 Lab Drop off Ashley L Clemencia [facility] Start: 03-10-2022 End: 03-11-[address] DILLAN ANNA Facility:[facility] Start: 02-15-2022 End: 02-16-[address] DILLAN ANNA Facility:[facility] Start: 02-09-2022 End: 02-09-2022 Patient encounter procedure Dillan ANNA General [facility] Start: 02-05-2022 Office outpatient vi sit 15 minutes Cuauhtemoc Villela Work Phone: [facility] 250 DO Work Phone: Start: 02-05-[address] Jose Francisco Zavala Facility: Start: 02-01-2022 End: 02-02-[address] JOSE FRANCISCO ZAVALA Facility:[facility] Start: 01-27-2022 Encounter for preprocedural laboratory examination DR DILLAN ANNA [facility] Start: 01-27-2022 End: 01-27-[address] DILLAN ANNA Facility:[facility] Start: 01-23-2022 End: 01-24-[address] DILLAN ANNA Facility:[facility] Start: 01-23-2022 End: 01-24-2022 Encounter for preprocedural laboratory examination DR DILLAN ANNA Facility:[facility] Start: 01-18-2022 Rx Renewal Cuauhtemoc Villela Work Phone: [facility] 250 DO Work Phone: Start: 03-17-2021 End: 03-18-[address] JOSE FRANCISCO ZAVALA Facility:[facility] Start: 03-13-[address] Jose Francisco Zavala Facility: Start: 02-06-2021 Office outpatient vi sit 15 minutes Cuauhtemoc Villela Work Phone: [facility] 250 DO Work Phone: Start: 11-09-2017 End: 11-10-2017 Patient encounter DILLAN OCHOA [facility] Start: 08-17-2017 End: 09-01-2017 Patient encounter MELITON (ARLENE) [facility] Start: 03-23-2017 End: 04-21-2017 Patient encounter MELITON (ARLENE) [facility] Start: 12-22-2016 End: 12-23-2016 Patient encounter MELITON CRUZ) MARY [facility] Procedures Date Procedure Procedure Detail Performing Clinician Start: 08-02-2023 HAND/UPPER EXTREMITY INJECTION/ARTHROCENTESIS FELIZ TIERNEY Start: 08-02-2023 Injection 1 tendon sheath/ligament aponeurosis Feliz Tierney DO Work Phone: Start: 05-12-2023 Mammography Feliz Jenkins cia DO Work Phone: Start: 05-03-2023 HAND/UPPER EXTREMITY INJECTION/ARTHROCENTESIS FELIZ TIERNEY Start: 05-03-2023 Injection 1 tendon sheath/ligament aponeurosis Feliz Tierney DO Work Phone: Start: 04-03-2023 Carpal tunnel syndro me (disorder) Ashley Vaughan Comment on above: Dr. Tierney- [facility]- Coupital, Guyon and Carpal Tunnel all fixed the same day. 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 Work Phone: Start: 03-18-2022 Mammography Jose Francisco dallas MD Work Phone: Start: 01-27-2022 Colonoscopy Jose Francisco dallas MD Work Phone: Start: 01-27-2022 Total colonoscopy Cuauhtemoc Villela Work Phone: Arthroplasty of knee Cuauhtemoc rodriguez Work Phone: Arthroplasty of knee Dillan ANNA Arthroplasty of knee Dillan NILL Cholecystectomy Dillan WILFRIDO Hysterectomy Cuauhtemoc Villela Work Phone: Operation on gallbladder Cuauhtemoc Villela Work Phone: Operative procedure on knee Cuauhtemoc Villela Work Phone: Repair of meniscus Dillan MOSHER Tonsillectomy Cuauhtemoc Villela Work Phone: Tonsillectomy and adenoidectomy Dillan ANNA Total colonoscopy Cuauhtemoc dowling Work Phone: Total hysterectomy v ia vaginal approach Dillan ANNA Plan of Treatment Date Care Activity Detail Author Start: 01-28-2032 Screening for malign ant neoplasm of colon [facility] Start: 09-03-2024 ambulatory Ambulatory Facility:[facility] Start: 06-25-2024 DTaP,Tdap and Td Vaccines (2 - Td or Tdap) DTaP,Tdap and Td Vaccines (2 - Td or Tdap) [facility] Start: 06-25-2024 DTaP/Tdap/Td Vaccine s (2 - Td or Tdap) DTaP/Tdap/Td Vaccines (2 - Td or Tdap) [facility] Start: 06-18-2024 End: 06-18-2024 Patient encounter procedure 06/18/2024 10:30 AM EDT [facility] [address] [place] [address] [address] [place] [address] Estela Robertson, WOVEN LABEL DESIGNER-PHARMACY SERVICES DIRECTOR [address] [place] [address], [address] [place] [address] [facility] Start: 06-13-2024 Adult BMI Screening Adult BMI Screen ing [facility] Start: 06-13-2024 Tobacco Screening Tobacco Screening [facility] Start: 05-12-2024 Screening for malign ant neoplasm of breast Mammogram [facility] Start: 02-24-2024 End: 02-24-2024 Patient encounter procedure 02/24/2024 8:30 AM EST Office Visit [address] [place] [phone] Jose Francisco Zavala MD [address] [facility] [address] [place] [address] [facility] Start: 12-04-2023 Influenza vaccination Influenz a Vaccine (Season Ended) [facility] Start: 11-03-2023 End: 12-02-2024 MR Breast - bilateral WO and W contrast IV MR bilateral breast with and without contrast with CAD Imaging Routine At high risk for breast cancer Dense breast Expected: 11/03/2023, Expires: 12/02/2024 [facility] Work Phone: Comment on above: Expected: 11/03/2023 , Expires: 12/02/2024 Start: 10-04-2023 End: 10-04-2023 Patient encounter procedure 10/04/2023 9:15 AM EDT Office Visit [facility] [address] [place] [phone] Feliz Tierney, DO [address] [facility], [address] [place] [address] [phone] [facility] Start: 08-06-2023 COVID-19 Vaccine ( season) COVID-19 Vaccine ( season) [facility] Start: 08-02-2023 End: 08-02-2023 Patient encounter procedure 08/02/2023 9:15 AM EDT Office Visit [facility] [address] [place] [phone] Feliz Tierney, DO [address] [facility], [address] [place] [address] [phone] [facility] Start: 05-19-2023 Depression Screening Depression Scre [facility] [employer] [facility] Start: 05-03-2023 End: 05-03-2023 Patient encounter procedure 05/03/2023 1:45 PM EST Office Visit [facility] [address] [place] [phone] Feliz Tierney, DO [address] [facility], [address] [place] [address], [place] [address] [facility] Start: 03-18-2023 Screening for malign ant neoplasm of breast Mammogram [facility] Start: 02-22-2023 End: 02-22-2023 Patient encounter procedure 02/22/2023 10:15 AM EST Office Visit [facility] [address] [facility] [place] [phone] Feliz Tierney, DO [address] [facility], [address] [place] [address], [place] [id number] [facility] Start: 02-15-2023 Subsequent hospital visit by physician 02/15/2023 2:00 PM EST Hospital Encounter [address] [place] [address] [facility] Start: 02-11-2023 FUV, Provider: Jose Francisco Zavala, Status: Pen, Time: 8:30 AM FUV, Provider: Jose Francisco Zavala, Status: Pen, Time: 8:30 AM [facility] 250 DO Work Phone: Start: 02-01-2023 Pneumococcal Vaccine : 65+ Years (2 - PPSV23 or PCV20) Pneumococcal Vaccine: 65+ Years (2 - PPSV23 or PCV20) [facility] Start: 02-01-2023 Pneumococcal Vaccine : 65+ Years (2 of 2 - PPSV23 or PCV20) Pneumococcal Vaccine: 65+ Years (2 of 2 - PPSV23 or PCV20) [facility] Start: 12-03-2022 Influenza vaccination [facility] Start: 05-05-2022 COVID-19 Vaccine (4 - Booster for Digna series) COVID-19 Vaccine (4 - Booster for Digna series) [facility] Start: 02-05-2022 FUV, Provider: Jose Francisco Zavala, Status: Pen, Time: 8:40 AM FUV, Provider: Jose Francisco Zavala, Status: Pen, Time: 8:40 AM [facility] 250 DO Work Phone: Start: 2021 Fall Risk Screening Fall Risk Screen ing [facility] Start: 03-13-2021 NURSEVST, Provider: FATIMAH KAISER CONDITIONING MACHINE OPERATOR 1,[id number], Status: Pen, Time: 8:30 AM NURSEVST, Provider: FATIMAH KAISER CONDITIONING MACHINE OPERATOR 1,[id number], Status: Pen, Time: 8:30 AM [facility] 250 DO Work Phone: Start: 2016 RSV patient s and/or patients aged 60+ years (1 - 1-dose 60+ series) RSV patients and/or patients aged 60+ years (1 - 1-dose 60+ series) [facility] Start: 12-22-2015 Administration of varicella zoster vaccine Zoster (Shingles) Vaccine (2 of 3) [facility] Start: 12-22-2015 Zoster Vaccines (2 of 3) Zoster Vacc daniel (2 of 3) [facility] Start: 1974 Adult BMI Follow Up Plan Adult BMI F ollow Up Plan [facility] Start: 1974 Diabetes mellitus screening Diabetes Screening [facility] Start: 1974 Hepatitis C screening Hepatitis C Sc reening [facility] Start: 1956 Lipid panel Lipid Panel [facility] Start: 1956 Medicare Annual Well ness Visit [facility] Start: 1956 Screening for malign ant neoplasm of colon [facility] Start: 1956 Screening for osteoporosis Bone Density Scan [facility] Immunizations Immunization Date Immunization Notes Care Provider Fa cility 03-10-2022 SARS-CoV-2 (COVID-19 ) [id number] Ashley Vaughan [facility] Comment on above: Result Comment: 2022: [id number] 02-01-2022 pneumococcal conjuga te vaccine, 13 valent Cuauhtemoc Mignon OrtizVillela Work Phone: [facility] Comment on above: Series: 02-01-2022 Prevnar 20 0.5 ML Intramuscular Suspension Prefilled Syringe Cuauhtemoc Mignon Manohar Work Phone: [facility] 250 DO Work Phone: 07-22-2021 Moderna COVID-19 Vaccine 100 MCG/0.5ML Intramuscular Suspension Cuauhtemoc Ortizight Work Phone: [facility] 01-24-2021 Moderna COVID-19 Vaccine 100 MCG/0.5ML Intramuscular Suspension Cuauhtemoc Mignon OrtizVillela Work Phone: [facility] Comment on above: Result Comment: 2022: [id number] 06-07-2020 Digna COVID-19 Vaccine 0.5 ML Intramuscular Suspension Cuauhtemoc Mignon OrtizVillela Work Phone: [facility] 10-27-2015 zoster vaccine, live Cuauhtemoc rodriguez Work Phone: [facility] 10-27-2015 zoster vaccine, unspecified formulation Estela Robertson [facility] Work Phone: [facility] 11-25-2014 hepatitis B vaccine, adult dosage Cuauhtemoc Ortizight Work Phone: [facility] 06-25-2014 hepatitis B vaccine, adult dosage Cuauhtemoc Ortizight Work Phone: [facility] 06-25-2014 tetanus toxoid, reduced diphtheria toxoid, and acellular pertussis vaccine, adsorbed Cuauhtemoc Ortizight Work Phone: [facility] 05-28-2014 hepatitis B vaccine, adult dosage Cuauhtemoc Mignon OrtizVillela Work Phone: [facility] 04-30-2009 novel [id number], preservative-free, injectable Cuauhtemoc Mignon Manohar Work Phone: [facility] 250 DO Work Phone: 04-30-2009 influenza virus vaccine, unspecified formulation Jose Francisco Zavala MD Work Phone: [facility] Work Phone: NEGATED: Highlighted row has not occurred!12-30-2021 influenza virus vaccine, unspecified formulation Dillan ANNA [facility] [place] Payers Date Payer Category Payer Medicare [id number] 2021 Private Health Insurance AETNA S UPPLEMENTAL AETNA SENIOR SUPPLEMENT [id number] 2021-Present [address] [place] [address] [id number] 1959 Medicare [id number] 1959 Private Health Insurance ACC [id number] 1956 Unknown [id number] .840.1.868077.3.579. 2.356 1956 Unknown [id number] .840.1.526707.3.579. 2.356 1956 Unknown [id number] 2.16.840.1.795184.3.579. 2.593 1956 Unknown [id number] 2.16840.1.479388.3.579. 2.593 1956 Unknown [id number] 2.16.840.1.243963.3.579. 2.593 1956 Unknown [id number] 2.16.840.1.673083.3.579. 2.593 1956 Unknown [id number] 2.16.840.1.851493.3.579. 2.593 1956 Unknown [id number] 2.16.840.1.178014.3.579. 2.593 1956 Unknown [id number] 2.16.840.1.030881.3.579. 2.1068 1956 Unknown [id number] 2.16.840.1.801624.3.579. 2.1244 1956 Unknown [id number] 2.16.840.1.531173.3.579. 2.182 1956 Unknown [id number] 2.16.840.1.181344.3.579. 2.1286 1956 Unknown [id number] 2.16.840.1.551392.3.579. 2.1286 1956 Unknown [id number] 2.16.840.1.945443.3.579. 2.1246 1956 Unknown [id number] 2.16.840.1.310450.3.579. 2.1246 1956 Unknown [id number] 2.16.840.1.380904.3.579. 2.1246 1956 Unknown [id number] 2.16.840.1.640025.3.579. 2.1246 1956 Unknown [id number] 2.16.840.1.334732.3.579. 2.1246 1956 Unknown [id number] 2.16.840.1.405157.3.579. 2.727 1956 Unknown [id number] 2.16.840.1.483137.3.579. 2.727 1956 Unknown [id number] 2.16.840.1.829723.3.579. 2.727 1956 Unknown [id number] 2.16.840.1.354376.3.579. 2.727 1956 Unknown [id number] 2.16.840.1.958051.3.579. 2.727 1956 Unknown [id number] 2.16.840.1.558452.3.579. 2. 1956 Unknown [id number] 2.16.840.1.536475.3.579. 2.727 1956 Unknown [id number] 2.16.840.1.710744.3.579. 2 Unknown Unknown [id number] Unknown [id number] Social History Date Type Detail Facility Start: 02-11-2023 End: 08-02-2023 Occasional alcohol use Occasional alcohol use [facility] 250 DO Work Phone: Comment on above: 1/2 decaf daily 1 cu p regular coffee daily.; Quit in 2002; 1/2 cup decaf 1 cup regualar coffee daily; occasional; Start: 12-30-2021 End: 09-06-2023 Tobacco smoking status Ex-smoker (finding) [facility] [place] Comment on above: States she smoked ci garettes 1/2 PPD from 19 y.o. to 46 y.o. but quit for three years when her daughter was born. Total smoking years 19, PPY: 8. Tobacco smoking status Never [facility] [place] Comment on above: States she smoked ci garettes 1/2 PPD from 19 y.o. to 46 y.o. but quit for three years when her daughter was born. Total smoking years 19, PPY: 8. Start: 02-11-2023 End: 08-02-2023 Sex Assigned At Female [facility] [employer] [facility] End: 04-04-2002 History of tobacco use Current smoker [facility] Work Phone: End: 04-04-2002 History of tobacco use Cigarette Smoker [facility] Work Phone: Start: 05-19-2022 End: 02-11-2023 Tobacco use and exposure Smokeless tobacco non-user [facility] Work Phone: Start: 02-11-2023 End: 08-02-2023 Alcohol intake Current drinker of alcohol (finding) [facility] Work Phone: Start: 02-11-2023 Alcohol Comment social [facility] Work Phone: Start: 1955 Sex Assigned At Female [facility] Start: 08-19-2020 Gender identity Identifies as female gender (finding) [facility] Work Phone: Start: 02-01-2023 End: 08-02-2023 Exposure to SARS-CoV-2 (event) Not sure [facility] Start: 08-20-2020 Alcohol Comment Occasional [facility] Medical Equipment Procedure Code Equipment Code Equipment Origin al Text Equipment Identifier Dates Brng Tib E1 Vngd Ps 63/67x16 Rpl [id number] - [id number] Start: 09-26-2020 Cmnt Bn Bio 40gm - [id number], [id number] FDA Start: 09-26-2020 Cmpt Ptlr Asym 8 mm 31mm 3 Pg - [id number] Start: 09-26-2020 Goals Date Patient Goal Desired Activity /State Personal health goal Comment on above: Formatting of this n ote might be different from the original. Evaluation of progress towards goal: Maximize work w pt at discharge to strengthen lt hip Clinical Notes 01-27-2022 to 08-02-2023 Feliz Tierney, DO - 08/02/2023 9:15 AM ANTHONY Azul - 06/14/2023 10:30 AM Favian Tierney, DO - 05/03/2023 1:45 PM Rohtih Tierney, DO - 03/22/2023 1:15 PM EST Note Date & Type Note Facility 08-02-2023 History of Present illness Narrative Associated Order(s): Hand / UE Inj/Asp: L small A1 Post-Procedure Diagnose(s): Acquired trigger finger Images from the original note were not included. 08/02/2023 Chief Complaint Patient presents with Right Wrist - Follow-up Rt CTR DOS: 03/09/23 Right Elbow - Follow-up Rt cubital tunnel release DOS: 03/09/23 Left Hand - Follow-up Trigger thumb S/p injection 05/03/23 History of Present Illness: Patient Loreto Vasquez , 67 y.o. female, presents today, 08/02/2023, for evaluation of bilateral hand, wrist, and forearm complaints . She is nearly 5 months out from right carpal tunnel release and right cubital tunnel release. She feels that she does have strength increasing over time, she still states that there is no feeling in the tips of my fingers, but there is some tingling , she feels like this might be the nerves waking up. She underwent left trigger thumb injection in April of this year and had complete symptomatic resolution. However she states over the last 2 to 3 months she has been having similar symptoms to the left small finger. She states occasionally with gripping and squeezing the finger locks up and she needs to do some massage or use the contralateral limb to extend it back straight again. Review of Systems: GENERAL: Negative GI: Negative MUSCULOSKELETAL: See HPI SKIN: Negative NEURO: Negative Physical Exam: GENERAL: Alert and oriented to person, place, and time. No acute distress and breathing comfortably; pleasant and cooperative with the examination. HEENT: Head is normocephalic and atraumatic. NECK: Supple, no visible swelling. CARDIOVASCULAR: No palpable tachycardia. LUNGS: No audible wheezing or labored breathing. ABDOMEN: Nondistended. Extremities: Evaluation of bilateral upper extremities finds the patient to have a palpable radial artery at the wrist with brisk capillary refill to all digits. The patient has intact sensorium to axillary, radial, median and ulnar nerves. There are no open wounds. There are no signs of infection. There is no evidence of lymphedema or lymphatic streaking. The patient has supple compartments of the bilateral arms, forearms and hands. Surgical incisions on the right are well-healed. She has improved range of motion through flexion extension pronosupination of the elbow forearm and wrist. On the left she has tenderness overlying the A1 alfred of the left small finger with mechanical triggering noted digital flexion extension on exam. Imaging/Test Results: None today. Assessment: #1: Right carpal and cubital tunnel release, 5 months out with continued weakness and numbness and tingling but slowly improving overall. #2: Left trigger thumb resolved with Kenalog injection as of 05/03/2023. #3: Left small finger trigger digit. Plan: On the right recommendations are made continue weight-bear as tolerated work on home exercise program for strengthening endurance. Patient had intrinsic atrophy and severe symptoms on the front and before surgery, we discussed that continued progress is encouraging, and we would continue to monitor for improvement for at least 1 year postoperatively. Will continue with observation of left trigger thumb for now. She is asymptomatic and we hope that this is resolved with single round of Kenalog injection. In regards to the left small finger trigger digit, operative and nonoperative treatment strategies were reviewed. Patient like to proceed forth with continued nonoperative management way of Kenalog injection. This was performed in office today by Dr. Tierney and tolerated well by patient. Continue with activities to tolerance and follow-up again in 2 months for repeat clinical exam. No x-rays necessary upon return. All questions answered at today's visit. Hand / UE Inj/Asp: L small A1 for trigger finger on 08/02/2023 9:39 AM Indications: pain and tendon swelling Details: 25 G needle, volar approach Medications: 10 mg triamcinolone acetonide 10 mg/mL; 1 mL lidocaine 10 mg/mL (1 %) Outcome: tolerated well, no immediate complications Procedure, treatment alternatives, risks and benefits explained, specific risks discussed. Consent was given by the patient. Immediately prior to procedure a time out was called to verify the correct patient, procedure, equipment, child support specialist and site/side marked as required. Patient was prepped and draped in the usual sterile fashion. In a face to face encounter, I performed a history and physical examination, discussed pertinent diagnostic studies if indicated, and discussed diagnosis and management strategies with both the patient and the mid-level provider. I reviewed the mid-level's note and agree with the documented findings and plan of care. Patient presents today for evaluation of new onset triggering to left small finger. Previous steroid injection worked great to the left thumb. Patient is slowly improving status post right carpal tunnel release. Exam shows tenderness to left small finger A1 alfred with mechanical triggering. Treatment options were discussed regarding the left small finger trigger. Patient elects for steroid injection and 4-week follow-up. documented in this encounter [facility] Work Phone: 06-14-2023 History of Present illness Narrative Images from the original note were not included. Date of Visit: 06/14/2023 Reason for Visit: High risk surveillance follow up HPI Loreto Vasquez is a 67-year-old female with a significant family history of breast cancer. Comes today for her continued breast cancer surveillance exam. TODAY'S VISIT: She returns the office today for complete breast exam. She states she is doing well and has not had any new breast concerns. She denies any masses, skin or nipple changes or nipple discharge. She does have a history of an inverted left nipple without change today. She denies any new onset headache, vision changes, chest pain, shortness of breath, abdominal pain, bone pain(history of multiple left knee surgeries with continued swelling however pain is manageable-somewhat better) or any new concerns throughout her body. 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 Familial cancer history: 2 maternal aunts with breast cancer in their 50s and 70s, 2 sisters with breast cancer each diagnosis 62 years of age. Past Medical History: Diagnosis Date Arthritis Diverticulitis of colon GERD (gastroesophageal reflux disease) resolved since loss of 55 lbs Hypertension Postoperative nausea and vomiting 09/26/2020 Visual impairment glasses Current Outpatient Medications on File Prior to Visit Medication Sig Dispense Refill acidophilus-pectin, citrus 25 million cell -100 mg tablet Take 1 tablet by mouth daily with breakfast. guar gum (NUTRISOURCE FIBER) packet Take 1 packet by mouth in the morning. magnesium 200 mg tablet Take 400 mg by mouth daily Indications: low amount of magnesium in the blood. valsartan (DIOVAN) 160 mg tablet Take 1 tablet (160 mg total) by mouth in the morning. HYDROcodone-acetaminophen (NORCO) 5-325 mg per tablet 1-2 tablets by mouth every 6 hours as needed for pain. (Patient not taking: Reported on 10/07/2021) 42 tablet 0 losartan (COZAAR) 50 mg tablet Take 100 mg by mouth daily Indications: high blood pressure. prochlorperazine (COMPAZINE) 5 mg tablet Take 1 tablet (5 mg total) by mouth every 6 (six) hours as needed for nausea or vomiting. (Patient not taking: Reported on 10/07/2021) 20 tablet 0 No current facility-administered medications on file prior to visit. Allergies Allergen Reactions Sulfa (Sulfonamide Antibiotics) Hives Hives and throat swelling Flu Vaccin [id number](36mos,Up) Hives torso Oxycontin [Oxycodone] Nausea Can tolerate vicodin Past Surgical History: Procedure Laterality Date CHOLECYSTECTOMY 2011 COLONOSCOPY HYSTERECTOMY 2000 JOINT REPLACEMENT Left x 3 KNEE SURGERY Left [place] in 2016 REVISION TOTAL JOINT KNEE Left 09/26/2020 Performed by Deejay Rothman MD at [facility] TONSILLECTOMY Family History Problem Relation Age of Onset Pancreatitis Mother Cancer Father bladder Diabetes Father Heart failure Father Breast cancer Sister Diabetes Sister Heart attack Sister Colon cancer Maternal Grandfather Bleeding Disorder Neg Hx Clotting disorder Neg Hx Anesthesia problems Neg Hx Ovarian cancer Neg Hx Social History Socioeconomic History Marital status: Spouse name: Not on file Number of children: Not on file Years of education: Not on file Highest education level: Not on file Occupational History Not on file Tobacco Use Smoking status: Former Types: Cigarettes Quit date: 2002 Years since quittin.2 Smokeless tobacco: Never Vaping Use Vaping Use: Never used Substance and Sexual Activity Alcohol use: Yes Comment: Occasional Drug use: Never Sexual activity: Yes Other Topics Concern Not on file Social History Narrative Lives with spouse in a two story home with a first floor bed and bath. Two steps into the home. Has a tub/shower bathing set up. Needs a shower chair. Has a walks with no wheels. Has no pets. RAPT score of 11 Social Determinants of Health Financial Resource Strain: Not on file Food Insecurity: No Food Insecurity (05/19/2022) Hunger Screening Food Insecurity - Worry: Never True Food Insecurity - Inability: Never True Transportation Needs: Not on file Physical Activity: Not on file Stress: Not on file Social Connections: Not on file Interpersonal Safety: Not on file Housing Instability: Not on file BP 166/84 (BP Site: Right Arm, BP Postition: Sitting, BP CUFF SIZE: L (13-17 inches)) Pulse 65 Resp 18 Ht 157.5 cm (5' 2.01 ) Wt 69.4 kg (153 lb) BMI 27.98 kg/m Review of Systems Constitutional: Negative. Negative for chills, fatigue, fever and unexpected weight change. HENT: Negative. Negative for congestion, hearing loss, postnasal drip, sinus pressure and sore throat. Eyes: Negative. Negative for pain and discharge. Respiratory: Negative. Negative for cough, shortness of breath and wheezing. Cardiovascular: Negative. Negative for chest pain and palpitations. Gastrointestinal: Negative. Negative for abdominal pain, constipation, diarrhea, nausea and vomiting. Endocrine: Negative. Genitourinary: Negative. Negative for dysuria, frequency, menstrual problem, pelvic pain, vaginal discharge and vaginal pain. Musculoskeletal: Negative. Negative for back pain and myalgias. History of multiple right knee surgeries most recent total knee replacement. Skin: Negative. Negative for rash and wound. Neurological: Negative. Negative for dizziness, weakness and headaches. Hematological: Negative. Psychiatric/Behavioral: Negative. Negative for confusion. The patient is not nervous/anxious. Objective: Physical Exam HENT: Head: Normocephalic. Nose: Nose normal. Mouth/Throat: Mouth: Mucous membranes are moist. Eyes: Extraocular Movements: Extraocular movements intact. Cardiovascular: Rate and Rhythm: Normal rate. Pulses: Normal pulses. Pulmonary: Effort: Pulmonary effort is normal. Chest: Abdominal: General: Abdomen is flat. Palpations: Abdomen is soft. Musculoskeletal: General: Normal range of motion. Cervical back: Normal range of motion. Skin: General: Skin is warm. Neurological: General: No focal deficit present. Mental Status: She is alert. Psychiatric: Mood and Affect: Mood normal. BREAT IMAGING: MAMM SCREENING BILATERAL W CAD BILATERAL DIGITAL SCREENING MAMMOGRAM 3D/2D WITH CAD: 05/12/2023 CLINICAL: Routine Screening. Current study was also evaluated with a Computer Aided Detection (CAD) system. Comparison is made to exams dated: 03/18/2022 mammogram, 01/30/2021 mammogram, 12/17/2019 mammogram, and 10/11/2018 mammogram - [facility]. Two view 3D digital tomosynthesis as well as C-view (synthetic 2D reconstruction with CAD) were performed. There are scattered fibroglandular elements in both breasts. No suspicious masses, calcifications, or other findings are seen in either breast. There has been no significant interval change. IMPRESSION: NEGATIVE There is no mammographic evidence of malignancy. A 1 year screening mammogram is recommended. The patient has a lifetime risk of developing breast cancer of 21.1% , including patient report of a primary relative with premenopausal breast cancer. Therefore, given density of breast tissue, consider BREAST MRI as an adjunct to screening mammography. This recommendation is based on the NSABP Irene Model 2 which is used to readily identify patients who may benefit from breast MRI surveillance based on information in part provided by the patient. There are other risk models that are more specific or detailed for evaluation of prophylactic treatment or genetic testing. Aditya Oconnell M.D. sj/:05/17/2023 09:56:28 letter sent: Neg Cont MRI Mammogram BI-RADS: 1: Negative Assessment/Plan: Loreto Vasquez is a 67-year-old female with a significant familial breast cancer history. Here today for her surveillance exam. Ten year risk 10.9% Lifetime risk 25.8% No genetic mutation Reviewed last breast imaging, no concerns per radiology No concerns noted on complete breast exam She will be due for breast MRI in November of 2023 followed by bilateral screening mammogram in May of 2024, ordered, she will call to schedule She agrees to follow up in our office after completion of her mammogram or sooner with any concerns, appointment scheduled 06/18/2024 She continues monthly self-breast exams-very dense fibroglandular upper breast poles Loreto Vasquez will call our office with any questions or concerns prior to her annual follow-up appointment, as we are always here for her Estela Robertson CNP Breast Surgical Oncology [facility] Diagnoses and all orders for this visit: At high risk for breast cancer Dense breast tissue ANTHONY Buckley 06/14/23 1251 documented in this encounter [facility] 05-03-2023 History of Present illness Narrative Associated Order(s): Hand / UE Inj/Asp: L thumb A1 Post-Procedure Diagnose(s): Acquired trigger finger Images from the original note were not included. 05/03/2023 Chief Complaint Patient presents with Right Wrist - Follow-up Rt CTR DOS: 03/09/23 Right Elbow - Follow-up Rt cubital tunnel release DOS: 03/09/23 History of Present Illness: Patient Loreto Vasquez , 67 y.o. female, presents today, 05/03/2023, for evaluation of right hand, wrist, and elbow pain, numbness, and weakness. Loreto is approximately 2 months postop from right carpal tunnel release with concomitant right cubital tunnel release with anterior transposition. She states that numbness and tingling in median nerve distribution has improved, but she still has persistence of numbness and tingling to ring and small finger. She still is persistent weakness to the hand and difficulties with gripping and squeezing. She is working with formal therapy at [facility] near her home. She has new complaint today of some left-sided catching and locking of her thumb. Denies any injury or trauma associated with this. Review of Systems: GENERAL: Negative GI: Negative MUSCULOSKELETAL: See HPI SKIN: Negative NEURO: Negative Physical Exam: GENERAL: Alert and oriented to person, place, and time. No acute distress and breathing comfortably; pleasant and cooperative with the examination. HEENT: Head is normocephalic and atraumatic. NECK: Supple, no visible swelling. CARDIOVASCULAR: No palpable tachycardia. LUNGS: No audible wheezing or labored breathing. ABDOMEN: Nondistended. Extremities: Evaluation of bilateral upper extremities finds the patient to have a palpable radial artery at the wrist with brisk capillary refill to all digits. The patient has intact sensorium to axillary, radial, median and ulnar nerves. There are no open wounds. There are no signs of infection. There is no evidence of lymphedema or lymphatic streaking. The patient has supple compartments of the bilateral arms, forearms and hands. Tenderness palpation over the A1 alfred of the left thumb with mechanical triggering noted with flexion extension on exam. Surgical incisions on the right are well-healed. Imaging: None today. Assessment: #1: Right carpal tunnel syndrome with resolution of numbness and tingling to median nerve distribution, 2 months out from carpal tunnel release; #2: Right cubital tunnel syndrome 2 months out from cubital tunnel release with anterior transposition with persistence of numbness and tingling and weakness; #3: Left trigger thumb. Plan: On the right recommendations were made patient continue with activities and weight-bear to tolerance. Given new therapy order to continue work on aggressive motion recovery, endurance and strengthening. On the left regarding the trigger thumb operative and nonoperative treatment strategies were reviewed. Recommendations made for initial nonoperative management in favor of Kenalog injection. This was performed in office today by Dr. Tierney and tolerated by patient. Follow-up with our office again in 3 months for repeat clinical exam. No radiographs necessary upon return. All questions answered at today's visit. Hand / UE Inj/Asp: L thumb A1 for trigger finger on 05/03/2023 1:58 PM Indications: pain and tendon swelling Details: 25 G needle, volar approach Medications: 5 mg triamcinolone acetonide 10 mg/mL; 0.5 mL lidocaine 10 mg/mL (1 %) Outcome: tolerated well, no immediate complications Trigger Finger Injection: It was explained to the patient that the risks of a steroid injection include but are not limited to infection, local skin irritation, skin atrophy, calcification, continued pain and discomfort, elevation of blood sugar, burning, failure to relieve pain, and possibility of infection. The patient verbalized good insight and verbalized consent for the injection. It was further explained that the postinjection discomfort can be alleviated with additional medications, ice, elevation, and rest over the first 24 hours, and that these modalities are recommended. Using aseptic technique, a solution containing 5 mg of Kenalog and 0.5 cc of 1% lidocaine without epinephrine was injected into the flexor retinacular sheath. A 25-gauge needle was advanced into the flexor retinacular sheath at the level of the A1 alfred and the steroid solution was injected slowly. A band-aid was then placed over the injection site. The patient was then asked to flex and extend the digits to help disperse the injection. The patient tolerated this trigger finger injection well. It should be noted that ethyl chloride spray was used to make the injection delivery more comfortable for the patient. Procedure, treatment alternatives, risks and benefits explained, specific risks discussed. Consent was given by the patient. Immediately prior to procedure a time out was called to verify the correct patient, procedure, equipment, child support specialist and site/side marked as required. Patient was prepped and draped in the usual sterile fashion. In a face to face encounter, I performed a history and physical examination, discussed pertinent diagnostic studies if indicated, and discussed diagnosis and management strategies with both the patient and the mid-level provider. I reviewed the mid-level's note and agree with the documented findings and plan of care. Patient presents today for evaluation of painful triggering of left thumb and to evaluate symptoms status post right carpal tunnel release and right cubital tunnel release. Overall she is making nice progress status post nerve release however continues to be symptomatic through ulnar nerve distribution in the hand. The left hand shows focal tenderness over A1 alfred to left thumb with mechanical triggering. Treatment options were discussed. Recommendations were made for left trigger thumb injection. We are going to do a 3-month follow-up to continue to follow recovery of the peripheral nerve release on the right. documented in this encounter [facility] Work Phone: 03-22-2023 History of Present illness Narrative History present illness: Patient presents today for ongoing evaluation status post right Guyon's release right carpal tunnel release and right cubital tunnel release. Has not experienced any improvement today. Physical examination: General: Alert and oriented to person, place, and time. No acute distress and breathing comfortably: Pleasant and cooperative with examination. Extremities: The surgical incision was clean dry without drainage and without signs of infection. There was no limb swelling or evidence to indicate a blood clot/deep venous thrombosis. Motion was within normal limits for first postoperative visit. The patient could move the extremity on the operative limb in a normal fashion without significant change. The neurovascular status was unchanged. No evidence for wound dehiscence. Diagnostic studies: Assessment: Status post right Guyon's release right carpal tunnel release and right cubital tunnel release with anterior transposition Plan: Patient will keep on with 1 pound weightbearing restriction for 2 more weeks. Recommendations were made for therapy to work on motion recovery scar massage and nerve gliding exercises. Plan for follow-up in 6 weeks. No x-rays necessary upon return. Procedure: Procedure: documented in this encounter [facility] Work Phone: 02-22-2023 History of Present illness Narrative History present illness: The patient presents today for ongoing follow-up of the right upper extremity. She has EMG nerve conduction study test that shows evidence for moderate right carpal tunnel syndrome and evidence for right cubital tunnel syndrome. She describes numbness and tingling to the right hand and functional issues as though the hand does not want to cooperate with her commands. Past medical history: The patient's past medical history, family history, social history, and review of systems were documented on the patient medical intake. The updated data was reviewed in the electronic medical record. History is negative except otherwise stated in history of present illness. Physical examination: General: Alert and oriented to person, place, and time. No acute distress and breathing comfortably: Pleasant and cooperative with examination. HEENT: Head is normocephalic and atraumatic. Neck: Supple, no visible swelling. Cardiovascular: No palpable tachycardia Lungs: No audible wheezing or labored breathing Abdomen: Nondistended. Extremities: Evaluation of the right upper extremity finds the patient had palpable radial artery at the wrist with brisk capillary refill to all digits. Patient has intact sensation to axillary radial median and ulnar nerves. There are no open wounds. There are no signs of infection. There is no evidence of lymphedema or lymphatic streaking. The patient has supple compartments to right arm forearm and hand. Positive Tinel's over course of ulnar nerve both to elbow and wrist. Positive Tinel's of the course of median nerve to right wrist. Radiology: Assessment: Ulnar nerve compression right wrist. Right cubital tunnel syndrome. Right carpal tunnel syndrome. Plan: Treatment options were discussed. We talked about operative and nonoperative strategies. The patient takes no blood thinners. She has history of arrhythmia but she reports that not a current issue. She elects to proceed forth with surgery by way of Kevin's release carpal tunnel release and cubital tunnel release with anterior transposition. Will seek approval for clearance for surgery through PCP and cardiology and get her set for surgery at some point in the near future. Procedure: documented in this encounter [facility] Work Phone: 02-11-2023 History of Present illness Narrative Subjective Loreto Vasquez is a 67 y.o. female Chief Complaint Annual Exam HPI Patient is here for follow-up continue management for previous evaluation for palpitation, hypertension and mildly overweight. Since last time I saw her she reports she is feeling well she denies any cardiac complaint of chest pain, lightheadedness, dizziness or syncope. She reports few months back she had a COVID-19 infection during which she felt a few palpitations but that resolved since then. ASSESSMENT: 1. Previous evaluation for palpitation with documented few premature atrial contractions, completely resolved. She had only 1 brief episode last year no recurrence 2. Hypertension well-controlled 3. Mildly overweight. She gained about 10 pounds since last time I saw her 4. Mild hyperlipidemia does not meet criteria for treatment 5. Recent COVID-19 infection RECOMMENDATION: 1. I advised the patient to continue present medical therapy 2. I counseled her regarding risk factor modification, exercise and weight loss 3. The patient advised to notify me change in cardiac status or symptoms. 4. We will try to retrieve her recent lab work from [place] and I advised her to drop a copy of her life screening 5. I we will see her back in the office in 1 year in follow-up with an EKG Review of Systems Cardiovascular: Positive for palpitations. All other systems reviewed and are negative. Visit Vitals BP 132/87 (BP Location: Left arm, Patient Position: Sitting) Pulse 78 Ht 1.575 m (5' 2 ) Wt 68.9 kg (152 lb) BMI 27.80 kg/m Smoking Status Former BSA 1.74 m Objective Physical Exam Constitutional: Appearance: Normal appearance. She is normal weight. HENT: Nose: Nose normal. Neck: Vascular: No carotid bruit. Cardiovascular: Rate and Rhythm: Normal rate. Pulses: Normal pulses. Heart sounds: Normal heart sounds. Pulmonary: Effort: Pulmonary effort is normal. Abdominal: General: Bowel sounds are normal. Palpations: Abdomen is soft. Genitourinary: Rectum: Normal. Musculoskeletal: General: Normal range of motion. Cervical back: Normal range of motion. Right lower leg: No edema. Left lower leg: No edema. Skin: General: Skin is warm and dry. Neurological: General: No focal deficit present. Mental Status: She is alert. Psychiatric: Mood and Affect: Mood normal. Behavior: Behavior normal. Thought Content: Thought content normal. Judgment: Judgment normal. Current Medications Current Outpatient Medications: amoxicillin (Amoxil) 500 mg capsule, , Disp: , Rfl: amoxicillin (Amoxil) 500 mg tablet, , Disp: , Rfl: fish oil concentrate (Dewey-3) 120-180 mg capsule, Take by mouth once daily., Disp: , Rfl: LYSINE ORAL, Take 1 tablet by mouth once daily., Disp: , Rfl: magnesium oxide (Mag-Ox) 400 mg tablet, Take 1 tablet (400 mg) by mouth once daily., Disp: , Rfl: multivit-min/ferrous fumarate (MULTI VITAMIN ORAL), Take 1 tablet by mouth once daily., Disp: , Rfl: omeprazole (PriLOSEC) [address] capsule, Take 1 capsule (40 mg) by mouth once daily in the morning. Take before meals. Do not crush or chew., Disp: , Rfl: valsartan (Diovan) 160 mg tablet, TAKE 1 TABLET BY MOUTH DAILY, Disp: 90 tablet, Rfl: 3 Assessment/Plan 1. Palpitations Follow Up In Cardiology 2. Essential hypertension Follow Up In Cardiology 3. Mixed hyperlipidemia 4. BMI 27.0-27.9,adult documented in this encounter [facility] Work Phone: 02-11-2023 Instructions Kings Rudolph MA - 02/11/2023 8:30 AM EST Please bring all medicines, vitamins, and herbal supplements with you when you come to the office. Prescriptions will not be filled unless you are compliant with your follow up appointments or have a follow up appointment scheduled as per instruction of your physician. Refills should be requested at the time of your visit. documented in this encounter [facility] Work Phone: 03-10-2022 Note PROCEDURE: XR HIP LT 2 3V W PELVIS HISTORY: Imaging of abdomen abnormal COMPARISON: None. FINDINGS: BONES:Small, very subtle sclerotic foci within inferior medial aspect of left femoral head; not overtly suspicious. SOFT TISSUES:No visible soft tissue swelling. EFFUSION:None visible. OTHER: Negative. IMPRESSION: 1. Small sclerotic foci within the inferior medial aspect of left femoral head which were better seen on the recent CT study. Consider follow-up imaging in 6 months to document stability. Electronically authenticated by: KATHLEEN YEAGER Date: 2022-03-10 11:47 [facility] 01-27-2022 Note OPERATIVE NOTE OPERATION DATE: 01/27/2022 PREOPERATIVE DIAGNOSIS: Intermittent left lower quadrant pain, presumed diverticulitis. POSTOPERATIVE DIAGNOSIS: Redundant colon with sigmoid spasm. PROCEDURE: Colonoscopy to cecum. SURGEON: Dillan Anna M.D. ANESTHESIA: Monitored anesthesia care. ESTIMATED BLOOD LOSS: Zero. INDICATIONS AND CONSENT: Patient is a 66-year-old female with a long history of intermittent left lower quadrant abdominal pain, presumed diverticulitis. Indications, risks, benefits, alternatives of proceeding with colonoscopy were explained extensively to the patient, including the risks of bleeding, colon perforation or anesthetic complications. All of her questions were answered. Informed consent was obtained. PROCEDURE: Patient brought to the operating room, placed in the left lateral decubitus position. Monitored anesthesia care was provided. Rectal exam was performed which showed no masses or blood. The scope was inserted into the anal canal. Under direct visualization was advanced. With the aid of abdominal compression and positional changes, it was able to be advanced to the cecum where cecal markings were clearly identified. There was noted to be a good prep. Upon withdrawal of the scope, mucosal surfaces were carefully examined. There were no mass lesions or polyps. No inflammatory changes or ulcerations. No significant diverticula. There was noted to be a redundant and spastic sigmoid colon with poor insufflations of this area. No inflammatory changes. The scope was retroflexed in the anal canal. There was no significant hemorrhoidal disease. Scope was then withdrawn. Patient tolerated procedure well, was sent to recovery room in good condition. CC: Cuauhtemoc Villela M.D. [facility] Evaluation + Plan note No data available for this section General Surgery [place] Evaluation + Plan note Future Appointments Appointment Date:09/06/2023 08:00:00 AM Scheduled Provider: Location:[facility] Appointment Type:FM Medicare Wellness Subsequent [facility] Evaluation + Plan note Future Appointments Appointment Date:09/12/2023 08:20:00 AM Scheduled Provider:Ashley Colvin Location:[facility] Appointment Type: Open Appointment Date:09/03/2024 08:00:00 AM Scheduled Provider: Location:[facility] Appointment Type:FM Medicare Wellness Subsequent Diagnostic Tests PendingHCV Antibody RFX to Quant PCR 09/06/23 [facility] Evaluation note Diagnosis Palpitations- Primary Essential hypertension Unspecified essential hypertension Mixed hyperlipidemia BMI 27.0-27.9,adult documented in this encounter [facility] Work Phone: Evaluation note* Diagnosis Lesion of ulnar nerve, right upper limb Lesion of ulnar nerve, unspecified upper limb documented in this encounter [facility] Work Phone: Evaluation note* Diagnosis Carpal tunnel syndrome of right wrist- Primary documented in this encounter [facility] Work Phone: Evaluation note* Diagnosis Cubital tunnel syndrome on right documented in this encounter [facility] Work Phone: Evaluation note* Diagnosis Cubital tunnel syndrome on right- Primary Carpal tunnel syndrome of right wrist Acquired trigger finger Trigger finger (acquired) documented in this encounter [facility] Work Phone: Evaluation note* Diagnosis At high risk for breast cancer- Primary Dense breast Inconclusive mammogram documented in this encounter [facility]* Diagnosis At high risk for breast cancer- Primary Encounter for screening mammogram for breast cancer Dense breast Inconclusive mammogram documented in this encounter [facility]* Diagnosis Acquired trigger finger- Primary Trigger finger (acquired) Carpal tunnel syndrome of right wrist Cubital tunnel syndrome on right documented in this encounter [facility] Work Phone: History of Present illness Narrative* Patient is here for follow-up continue management for previous evaluation for palpitation, hypertension, obesity and hyperlipidemia. Since last time I saw her she reports has been feeling well. She denies any complaint of chest pain, palpitation, lightheadedness, dizziness or syncope. She remains fairly active. Undergo any surgery or any cardiac issues or complaints. * ASSESSMENT: * 1. Previous evaluation for palpitation with documented few premature atrial contractions, completely resolved. * 2. Hypertension, suboptimally controlled * 3. Obesity with close to 55 pounds weight loss over the last several years * 4. Mild hyperlipidemia does not meet criteria for treatment * 5. Recent 10 pound weight gain and being mildly overweight * RECOMMENDATION: * 1. I advised the patient to have losartan to Diovan 160 mg daily * 2. I counseled her regarding risk factor modification, exercise and weight loss * 3. The patient advised to notify me change in cardiac status or symptoms. * 4. Reviewed the result of her EKG * 5. I reviewed her lab work online with her through her portal and will obtain copy from the hospital 6. Follow-up in 1 year [facility] 250 DO Work Phone: History of Present illness Narrative* Patient is here for follow-up continue management for previously evaluation for palpitation with documentation of few premature atrial contraction, hypertension, and mild hyperlipidemia. Since last time I saw her she reports she is feeling well. She described brief episodes of palpitation while on vacation in [place]. This has not reoccurred. During that vacation the patient reports she had also C OVID-19. She recovered from that without any sequela. She is doing well and denying any complaint currently. She reports she underwent life-screening tests and or was normal. She reports lab work wasdone recently at [facility] * ASSESSMENT: * 1. Previous evaluation for palpitation with documented few premature atrial contractions, completely resolved. She had only 1 brief episode last year no recurrence * 2. Hypertension well-controlled * 3. Mildly overweight. She gained few pounds however over the last several years she has lost a total of close to 50 pounds * 4. Mild hyperlipidemia does not meet criteria for treatment * 5. Recent COVID-19 infection while on vacation in [place] resolved without any sequela * RECOMMENDATION: * 1. I advised the patient to continue present medical therapy * 2. I counseled her regarding risk factor modification, exercise and weight loss * 3. The patient advised to notify me change in cardiac status or symptoms. * 4. We will try to retrieve her recent lab work from [place] and I advised her to drop a copy of her life screening * 5. I we will see her back in the office in 1 year in follow-up [facility] 250 DO Work Phone: Hospital Discharge instructions No data available for this section General Surgery [place] InstructionsNot on filedocumented in this encounter [facility] No data available for this section General Surgery [place] Reason for referral (narrative)* Consultation (Routine) - Authorized Specialty Diagnoses / Procedures Referred By Contac t Referred To Contact Cardiology Diagnoses Palpitations Essential hypertension Procedures Follow Up In Cardiology Jose Francisco Zavala MD [address] [place] [address] 2, [address] [address] Jose Francisco Zavala MD [address] [facility] 2, [address] [address] Referral ID Status Reason Start Date Expiration Date V isits Requested Visits Authorized [id number] Authorized 02/11/2023 02/11/2024 1 1 [facility] Work Phone: Reason for referral (narrative)* Consultation (Routine) - Pending Review Specialty Diagnoses / Procedures Referred By Contact Referred To Contact Occupational Therapy Diagnoses Cubital tunnel syndrome on right Feliz Tierney DO [address] [facility], [address] [place] [address] Referral ID Status Reason Start Date Expiration Date Visits Requested Visits Authorized [id number] Pending Review Specialty Services Required 3 03/21/2024 1 1 [facility] Work Phone: Summary Purpose Family History No Family History Records FoundUnknown Family Member Name Dates Details Family history of myocardial infarction: Father, Sister(V17.3, Z82.49) Comments:Sister age 55; Status:Active Family history of dementia: Sister(V17.2, Z81.8) Status:Active Family history of malignant neoplasm of breast: Sister(V16.3, Z80.3) Status:Active No pertinent family history: Mother, Brother(V49.89, Z78.9) Status:Active Unknown Family Member Name Dates Details Family history of myocardial infarction: Father, Sister(V17.3, Z82.49) Comments:Sister age 55; Status:Active Family history of dementia: Sister(V17.2, Z81.8) Status:Active Family history of malignant neoplasm of breast: Sister(V16.3, Z80.3) Status:Active No pertinent family history: Mother, Brother(V49.89, Z78.9) Status:Active Unknown Family Member Name Dates Details Family history of myocardial infarction: Father, Sister(V17.3, Z82.49) Comments:Sister age 55; Status:Active Family history of dementia: Sister(V17.2, Z81.8) Status:Active Family history of malignant neoplasm of breast: Sister(V16.3, Z80.3) Status:Active No pertinent family history: Mother, Brother(V49.89, Z78.9) Status:Active Unknown Family Member Name Dates Details Family history of myocardial infarction: Father, Sister(V17.3, Z82.49) Comments:Sister age 55; Status:Active Family history of dementia: Sister(V17.2, Z81.8) Status:Active Family history of malignant neoplasm of breast: Sister(V16.3, Z80.3) Status:Active No pertinent family history: Mother, Brother(V49.89, Z78.9) Status:Active Unknown Family Member Name Dates Details Family history of myocardial infarction: Father, Sister(V17.3, Z82.49) Comments:Sister age 55; Status:Active Family history of dementia: Sister(V17.2, Z81.8) Status:Active Family history of malignant neoplasm of breast: Sister(V16.3, Z80.3) Status:Active No pertinent family history: Mother, Brother(V49.89, Z78.9) Status:Active Advance Directives No Advanced Directives Records FoundLatest Code Status on File Code Status Date Activated Date Inactivated Comments Full Code 09/26/2020 5:11 PM 09/27/2020 1:49 PM Latest Code Status on File Code Status Date Activated Date Inactivated Comments Full Code 09/26/2020 5:11 PM 09/27/2020 1:49 PM Chief Complaint LORETO VASQUEZ is being seen for an annual follow-up of.LORETO VASQUEZ is being seen for an annual follow-up of.LORETO VASQUEZ is being seen for an annual follow-up of.* Follow up visit * 1. Right hand pain Reason for Referral Specialty Diagnoses / Procedures Referred By Raven lang Referred To Contact Radiology Diagnoses At high risk for breast cancer Dense breast Procedures MR bilateral breast with and without contrast with CAD Estela Robertson, [employer] DES[employer]ACY SERVICES DIRECTOR [address] [facility], [address] [place] [address] Referral ID Status Reason Start Date Expiration Date V isits Requested Visits Authorized [id number] Pending Review 06/15/2023 06/14/2024 1 1 Specialty Diagnoses / Procedures Referred By Contact Referred To Contact Orthopaedic Surgery / Orthopedic Surgery Diagnoses Acquired trigger finger Procedures Hand / UE Inj/Asp: L thumb A1 Feliz Tierney, [address] [facility], [address] [place] [address] Referral ID Status Reason Start Date Expiration Date V isits Requested Visits Authorized [id number] Pending Review 05/03/2023 05/02/2024 1 1 Specialty Diagnoses / Procedures Referred By Contact Referred To Contact Occupational Therapy Diagnoses Cubital tunnel syndrome on right Carpal tunnel syndrome of right wrist Lexy Nolasco PA-C [address] [facility], [address] [place] [address] Rhoda Díaz [facility] [address] [place] [address] [place] [phone] Referral ID Status Reason Start Date Expiration Date Visits Requested Visits Authorized [id number] Pending Review Specialty Services Required 05/03/2023 05/02/2024 1 1 Specialty Diagnoses / Procedures Referred By Raven lang Referred To Contact Diagnoses Lesion of ulnar nerve, right upper limb Lesion of ulnar nerve, unspecified upper limb Procedures EMG & nerve conduction Feliz Tierney, DO [address] [facility], [address] [place] [address] Referral ID Status Reason Start Date Expiration Date V isits Requested Visits Authorized [id number] Pending Review 01/03/2023 07/02/2023 1 1 Additional Source Comments INFORMATION SOURCE (unrecogn ized section and content) DATE CREATED AUTHOR 11/15/2017 [facility] DATE CREATED AUTHOR AUTHOR'S ORGANIZ ATION 09/03/2021 [facility] DATE CREATED AUTHOR AUTHOR'S ORGANIZ ATION 02/09/2022 [facility] DATE CREATED AUTHOR AUTHOR'S ORGANIZ ATION 03/13/2022 [facility] DATE CREATED AUTHOR AUTHOR'S ORGANIZ ATION 12/21/2022 [facility] DATE CREATED AUTHOR AUTHOR'S ORGANIZ ATION 01/06/2023 [facility] DATE CREATED AUTHOR AUTHOR'S ORGANIZ ATION 02/13/2023 [facility] DATE CREATED AUTHOR AUTHOR'S ORGANIZ ATION 03/11/2023 [facility] DATE CREATED AUTHOR AUTHOR'S ORGANIZ ATION 05/16/2023 [facility] DATE CREATED AUTHOR AUTHOR'S ORGANIZ ATION 06/15/2023 [facility] DATE CREATED AUTHOR AUTHOR'S ORGANIZ ATION 08/07/2023 [facility] DATE CREATED AUTHOR AUTHOR'S ORGANIZ ATION 09/08/2023 [facility] DATE CREATED AUTHOR AUTHOR'S ORGANIZ ATION 09/09/2023 [facility] DATE CREATED AUTHOR AUTHOR'S ORGANIZ ATION 09/13/2023 [facility] DATE CREATED AUTHOR AUTHOR'S ORGANIZ ATION 09/27/2023 [facility] Care team informatio n (unrecognized section and content) [employer] Superintendent Relationship Specialty Start Date End Date Clemencia, Ashley L [address] [place] [address] PCP - General 02/11/23 [employer] Superintendent Relationship Specialty Start Date End Date Clemencia, Ashley L, [employer] DES[employer]ER[employer]ACY SERVICES DIRECTOR [address] [place] [address] PCP - General 02/11/23 [employer] Superintendent Relationship Specialty Start Date End Date Clemencia, Ashley L, [employer] DESIGNER[employer]PHARMACY SERVICES DIRECTOR PCP - General 02/11/23 [employer] Superintendent Relationship Specialty Start Date End Date Clemencia, Ashley L, [employer] DESIGNER[employer]PHARMACY SERVICES DIRECTOR [address] [place] [address] PCP - General 02/22/23 [employer] Superintendent Relationship Specialty Start Date End Date Clemencia, Ashley L, [employer] DESIGNER-PHARMACY SERVICES DIRECTOR [address] [place] [address] PCP - General 02/22/23 [employer] Superintendent Relationship Specialty Start Date End Date Clemencia, Ashley L, [employer] DESIGNER[employer]PHARMACY SERVICES DIRECTOR [address] [place] [address] PCP - General 02/22/23 Jose Francisco Zavala MD [address] [place] [address] 2, [address] [place] [id number] PCP - MSSP ACO Attributed Provider 10/02/22 [employer] Superintendent Relationship Specialty Start Date End Date Clemencia, Ashley L, [employer] DES[employer]ER[employer]PHARMACY SERVICES DIRECTOR [address] [place] [address] PCP - General Nurse Practitioner 02/15/23 [employer] Superintendent Relationship Specialty Start Date End Date Clemencia, Ashley L, [employer] DESIGNER[employer]PHARMACY SERVICES DIRECTOR [address] [place] [address] PCP - General Nurse Practitioner 02/15/23 Reason for Visit (unrecogniz ed section and content) Reason Comments Annual Exam 1yr Specialty Diagnoses / Procedures Referred By Contac t Referred To Contact Diagnoses Lesion of ulnar nerve, right upper limb Lesion of ulnar nerve, unspecified upper limb Procedures EMG & nerve conduction Feliz Tierney, DO [address] [facility], [address] [place] [address] Referral ID Status Reason Start Date Expiration Date V isits Requested Visits Authorized [id number] Pending Review 01/03/2023 07/02/2023 1 1 Reason Comments Follow-up Rt cubital tunnel Gayatri cardona review Reason Comments Post-op CTRDos: 03/09/23 Post-op Cubital tunnel relea seDOS: 03/09/23 Reason Comments Follow-up Rt CTRDOS: 03/09/23 Follow-up Rt cubital tunnel re leaseDOS: 03/09/23 Reason Comments Follow-up Reason Comments Follow-up Rt CTRDOS: 03/09/23 Follow-up Rt cubital tunnel re leaseDOS: 03/09/23 Follow-up Trigger thumbS/p inj ection 05/03/23 FOR RECORDS PERTAINING TO PATIENTS WHO ARE OR HAVE BEEN ENROLLED IN A CHEMICAL DEPENDENCY/SUBSTANCEABUSE PROGRAM, SOME INFORMATION MAY BE OMITTED. This clinical summary was aggregated from multiple sources. Caution should be exercised in using it in the provision of clinical care. This summary normalizes information from multiple sources, and as a consequence, information in this document may materially change the coding, format and clinical context of patient data. In addition, data may be omitted in some cases. CLINICAL DECISIONS SHOULD BE BASED ON THE PRIMARY CLINICAL RECORDS. [email or web address] provides no warranty or guarantee of the accuracy or completeness of information in this document.
== END 2023-10-03 12:46 | disposition home or self-care (01) ==
LOC: RAD 12:46
PROVIDERS: PCP Nurse Practitioner; Visit Provider Nurse Practitioner
DX: M89.8X5 Other specified disorders of bone, thigh (principal)
CPT/HCPCS: 73502

== ENCOUNTER 2024-07-25 10:15 | Outpatient (OUT) | payer MEDICARE, SELFPAY ==
[2024-07-25 11:05] LABS: Alanine Aminotransferase 19 U/L (14-59); Aspartate Amino Transferase 19 U/L (15-37); Chol HDL Ratio 1.9; Cholesterol 145 mg/dL (<=200); HDL Cholesterol 75 mg/dL (40-60); Triglycerides 85 mg/dL (<=150)
== END 2024-07-25 10:16 | disposition home or self-care (01) ==
PROVIDERS: PCP Nurse Practitioner; Visit Provider Internal Medicine Cardiovascular Disease
DX: E78.2 Mixed hyperlipidemia (principal)
CPT/HCPCS: 36415; 80061; 84450; 84460